=== PATIENT | female | born 1950 | race Caucasian/White ===

== ENCOUNTER 2024-08-27 23:35 | Emergency (ER) | payer MEDICARE, OTHER, SELFPAY ==
--- NOTE | ~2024-08-27 | CT_ITS ---
EXAMINATION: CT ABDOMEN AND PELVIS WITH CONTRAST CLINICAL INFORMATION: Right upper and right lower abdominal quadrant pain. COMPARISON: Chest radiograph 08/28/2024 TECHNIQUE: Multidetector volumetric images were obtained from the superior aspect of the liver through the pubic symphysis following administration 85 mL of Omnipaque 350 intravenous contrast. IV contrast extravasation within the right upper extremity during the examination per the technologist note. Sagittal and coronal reformatted images were obtained on the technologist's workstation. Oral contrast: No This CT examination was performed using dose optimization techniques as appropriate, variously including the following: *Automated exposure control *Adjustment of mA and/or kV according to patient size (this includes techniques or standardized protocols for targeted exams where dose is matched to indication/reason for exam; i.e. extremities or head) *Use of iterative reconstruction technique DLP: 610 mGy-cm As noted on the comparison chest radiograph, a large volume IV contrast extravasation occurred within the right upper extremity. These findings are minimally included within the imaged field of view on the current examination. No intravascular IV contrast is not identified on this examination. This examination is therefore effectively an unenhanced CT of the abdomen and pelvis FINDINGS: LUNG BASES: Minimal bibasilar posterior dependent atelectasis of the lungs. LIVER, GALLBLADDER, AND BILIARY TREE: The liver is normal in size and capsular contour. No focal parenchymal lesions of the liver or gross intrahepatic duct dilatation identified. Possible mild nonspecific periportal edema may be present. Physiologically distended. No radiodense cholelithiasis identified. No vague borderline findings suspicious for possible gallbladder wall thickening are noted with the gallbladder wall measuring 4 mm in width. No pericholecystic fluid collections. The common bile duct measures 10 mm diameter, above expected limits of normal size. No radiodense choledocholithiasis. PANCREAS: Unremarkable. SPLEEN: Punctate benign calcification which may represent a chronic granuloma. Normal splenic size. ADRENAL GLANDS: Unremarkable. KIDNEYS AND URETERS: The kidneys are normal in size, shape, and attenuation. No hydronephrosis, hydroureter, or calculi seen. No perinephric stranding. BLADDER: Distended GASTROINTESTINAL TRACT: Mild colonic diverticulosis. Normal appendix (series 4 image 463). ABDOMINAL WALL: No significant hernia is appreciated. LYMPH NODES: Normal. VASCULAR: Mild scattered calcific atherosclerosis PELVIC VISCERA: Uterus is not visualized. No adnexal lesions noted. OSSEOUS STRUCTURES: Unremarkable. CT/CT abdomen pelvis w IV con IMPRESSION: *IV contrast agent extravasated within the right upper extremity. No intravenous IV contrast agent identified. *Subtle, borderline mural thickening of the gallbladder. This is not a definitive finding. However, close scrutiny of the gallbladder suggests possible 4 mm wall thickness of the gallbladder which may be secondary to acute cholecystitis. Furthermore, the common bile duct measures 10 mm diameter, above normal limits of size. Dilatation of the common bile duct may reflect chronic dysfunction of the sphincter of Reynold. Nonvisualized choledocholithiasis could result in similar findings. No intrahepatic biliary duct dilatation. No additional possible acute abnormalities identified. *Normal appendix. No free intraperitoneal fluid or gas collections. *Distended urinary bladder. Electronically signed by: Timoteo Aguilera MD 08/28/2024 02:52 AM [facility]
--- NOTE | ~2024-08-27 | XR_ITS ---
EXAMINATION: XR CHEST CLINICAL INFORMATION: Pain. Contrast extravasation. COMPARISON: None available. TECHNIQUE: Frontal view of the chest was obtained. FINDINGS: Normal appearance of the cardiomediastinal structures. No effusions or pneumothoraces. Normal pattern of pulmonary vasculature. No focal pulmonary consolidation. Partial visualization is made of extensive subcutaneous hypodensity along the medial aspect of the humerus within the right upper extremity. No soft tissue emphysematous changes identified. XR/XR chest 1V IMPRESSION: Partial visualization of extensive subcutaneous extravasation of IV contrast agent within the right upper extremity. Electronically signed by: Timoteo Aguilera MD 08/28/2024 02:21 AM [facility]
--- NOTE | ~2024-08-27 | US_ITS ---
EXAMINATION: US ABDOMEN LIMITED CLINICAL INFORMATION: Abdominal pain.. COMPARISON: None available. TECHNIQUE: Real-time imaging of the right upper quadrant abdominal viscera. FINDINGS: Multiple echogenic dependently layering gallstones are present within the gallbladder lumen exhibiting posterior acoustic shadowing. No pericholecystic fluid collections identified. The common bile duct measures 9 mm in diameter. The gallbladder measures 3-4 mm in width. The generation engineering technologist note reports pain over entire abdomen reported by patient. No specific indication of assessment for sonographic Collazo sign noted in the technologist note. The liver is only partially visualized. The visualized liver is normal in appearance. No free intraperitoneal fluid collections noted. US/US abdomen limited IMPRESSION: *Cholelithiasis. Gallbladder wall measures 3-4 mm in width, at the upper limits of normal size. No pericholecystic fluid collections. Multiple mobile gallstones within the gallbladder lumen. *The visualized common bile duct measures 9 mm in diameter, above normal limits of size. No choledocholithiasis noted. The distal common bile duct is not visualized. Electronically signed by: Timoteo Aguilera MD 08/28/2024 04:11 AM [facility]
--- NOTE | 2024-08-27 23:42 | ECG_ITS ---
Test Reason : CP, ABDOMINAL PAIN Blood Pressure : / mmHG Vent. Rate : 058 BPM Atrial Rate : 058 BPM P-R Int : 158 ms QRS Dur : 100 ms QT Int : 444 ms P-R-T Axes : 054 -23 020 degrees QTc Int : 435 ms Sinus bradycardia Minimal voltage criteria for LVH, may be normal variant ( Russ product ) Nonspecific T wave abnormality Abnormal ECG No previous ECGs available Referred By: Generic ED Physician Electronically Signed By:JENIFER GREENE MD
[2024-08-27 23:43] VITALS: BP 196/70; PULSE 58; RESP 18; TEMP 36.6; O2SAT 98; BMI 24.0
[2024-08-28 00:22] LABS: MANUAL DIFF FLAG NO
[2024-08-28 00:23] LABS: Basophils Absolute Auto 0.1 X10*3/uL (0.0-0.2); Basophils Percent Auto 0.5 % (0-2); Eosinophils Absolute Auto 0.1 X10*3/uL (0.0-0.4); Eosinophils Percent Auto 0.6 % (0-4); Hematocrit 37.2 % (37.0-47.0); Hemoglobin 12.9 g/dl (12.0-16.0); Imm Gran Abs Auto 0.02 X10*3/uL (0.00-0.03); Imm Gran Pct Auto 0.2 % (0.0-0.4); Lymphocytes Absolute Auto 1.8 X10*3/uL (1.2-4.9); Lymphocytes Percent Auto 16.7 % (20-40); Mean Corpuscular HGB Conc 34.7 g/dl (31.0-35.0); Mean Corpuscular Hemoglobin 31.2 pg (27.0-33.0); Mean Corpuscular Volume 89.9 fL (80.0-98.0); Mean Platelet Volume 9.3 fL (9.4-12.3); Monocytes Absolute Auto 0.9 X10*3/uL (0.1-1.2); Monocytes Percent Auto 8.6 % (2-11); Neutrophils Absolute Auto 7.8 x10*3/uL (2.0-8.3); Neutrophils Percent Auto 73.4 % (45-73); Platelet Count 297 X10*3/uL (160-400); Red Blood Count 4.14 X10*6/uL (4.20-5.50); Red Cell Distribution Width 12.2 % (11.0-16.0); White Blood Count 10.6 X10*3/uL (4.8-10.8)
[2024-08-28 00:38] LABS: Alanine Aminotransferase 22 U/L (0-31); Albumin Level 3.8 g/dL (3.5-5.0); Alkaline Phosphatase 93 U/L (39-117); Anion Gap 14 (12-20); Aspartate Amino Transferase 94 U/L (5-31); Bilirubin Total 0.4 mg/dL (0.0-1.0); Blood Urea Nitrogen 13 mg/dL (9-16); Calcium 8.9 mg/dL (8.4-10.2); Carbon Dioxide 25 mmol/L (22-29); Chloride 103 mmol/L (96-108); Creatinine Clr Calc Pharmacy 57.7; Estimated Glomerular Filt Rate > 60; Glucose Random 127 mg/dL (60-115); Lipase 24 U/L (8-78); Magnesium 1.9 mg/dL (1.6-2.6); Potassium 3.7 mmol/L (3.3-5.1); Sodium 138 mmol/L (135-145)
[2024-08-28 00:45] LABS: Troponin-I High Sensitivity < 2.7 ng/L (<3.5-17.0)
[2024-08-28] MEDS: LORazepam 2 MG/ML VIAL 1 MG IVPUSH (00:48)
[2024-08-28] MEDS: HYDROmorphone HCl 1 MG/ML SYRINGE IVPUSH (00:48)
--- NOTE | 2024-08-28 00:48 | ED.ABDPAIN ---
HPI - Abdominal Pain General Chief Complaint: Abdominal Pain Stated Complaint: ABDOMINAL PAIN Time Seen by Provider: 08/28/24 00:01 Source: patient Limitations: no limitations History of Present Illness ED Provider: Jennifer Nascimento PA-C HPI narrative: 74-year-old female with a self report of history of anxiety, epilepsy, breast cancer status post double mastectomy with lumpectomy on chronic opiate and benzodiazepine therapy, presents with abdominal pain. History limited as the patient continues to complain and perseverate over her pain. From what I can discern, she is having diffuse pain, most prominent over epigastric/substernal region, she states ?I feel like there is a ton of pressure and my duodenum is sticking out?. Associated constipation, abdominal distention and nausea. Unclear duration of symptoms. Related Data Allergies Allergy/AdvReac Type Severity Reaction Status Date / Time nitrofurantoin Allergy Unknown Verified 08/27/24 23:55 [From Macrodantin] prednisone Allergy Unknown Verified 08/27/24 23:55 zolpidem Allergy Nausea and Verified 08/27/24 23:55 Vomiting haloperidol [From Haldol] AdvReac Hallucinati Verified 08/28/24 01:07 ons levetiracetam [From Keppra] AdvReac Hallucinati Verified 08/28/24 01:07 ons Review of Systems Review of Systems Yes all other systems are reviewed and are negative Constitutional: Denies fatigue and Denies fever(s) Cardiovascular: Denies dyspnea Respiratory: Denies cough and Denies dyspnea Gastrointestinal: Reports bloating, Reports constipation, Reports nausea and Denies vomiting Endocrine: Denies fatigue PMFSH Past Medical History Attestation statement: The following information was validated with the patient. Medical History (Updated 08/28/24 @ 05:30 by Juana Florian MD) Breast cancer Surgical History (Updated 08/28/24 @ 03:50 by Crissy Short) H/O mastectomy Social History Social History Advance Directives: No Advance Directives Information Provided: Yes Do you have a plan to hurt others: No Plan Physical Exam ED Vital Signs: Vital Signs - 24 hr 08/27/24 23:43 08/28/24 02:28 08/28/24 05:05 Temperature 97.9 F 98.9 F 97.8 F Pulse Rate 58 62 52 Respiratory Rate 18 16 18 Blood Pressure 196/70 H 147/80 H 148/46 H Pulse Oximetry 98 97 97 Oxygen Delivery Method Room Air Room Air Room Air 08/28/24 06:10 Temperature 97.8 F Pulse Rate 52 Respiratory Rate 18 Blood Pressure 148/46 H Pulse Oximetry 99 Oxygen Delivery Method Room Air BMI result Body Mass Index 24.0 Const Other: Awake, cachectic Orientation/consciousness: patient oriented x3 Resp Other: Nonlabored respirations Cardio Other: Normal peripheral perfusion GI Other: Palpable pain over entire abdomen, it is soft not objectively distended, no objective guarding Skin Other: Warm dry no rash Neuro General: patient oriented x3, no focal motor deficits and CN's II-XI intact bilaterally Psych Other: Anxious, demanding, complaining over every intervention we are trying to implement, tearful at times, difficult to please Course Course Course Narrative: Signed out to night team pending imaging and final disposition. Medical Decision Making Medical Decision Making [facility] Narrative: 74-year-old female with a self report of history of anxiety, epilepsy, breast cancer status post double mastectomy with lumpectomy on chronic opiate and benzodiazepine therapy, presents with abdominal pain. History limited as the patient continues to complain and perseverate over her pain. From what I can discern, she is having diffuse pain, most prominent over epigastric/substernal region, she states ?I feel like there is a ton of pressure and my duodenum is sticking out?. Associated constipation, abdominal distention and nausea. Unclear duration of symptoms. Problem: Cancer, epilepsy, anxiety, chronic pain History: Per patient I have considered the following differential diagnoses: Metastatic disease, bowel obstruction, constipation, renal colic, medication seeking behavior, opiate withdrawal, ACS Plan: Patient is stating that she is constipated nauseous with the abdominal distention, I am considering bowel obstruction, perhaps she has metastatic disease. We will be obtaining a CT scan. Screening broad labs. We will be giving Dilaudid and Ativan. Patient states her pain radiates to the flank at times, perhaps she is passing a kidney stone. We will collect a urine sample. She could simply be constipated, she is on high-dose chronic opiate therapy. The patient is exhibiting medication seeking behaviors. Despite her self report of her pain medication regimen, she also received an additional 4 mg IV dose of morphine via EMS. Patient was also noted to be hypertensive, could be pain driven. Perhaps she ran out of her medications at home if she is taking too frequently than is prescribed, and now she is exhibiting withdrawal symptoms. Part of the patient's pain distribution is epigastric and subxiphoid region, perhaps this is an atypical presentation for ACS, EKG, chest x-ray and troponin we will be obtained. I have independently reviewed the following tests: Labs: No leukocytosis, not anemic, no electrolyte abnormality, troponin negative at less than 2.7 EKG: Sinus bradycardia, rate of 58, T-wave inversions noted V1 through V4, we have no priors, QT see 435, no ectopy Chest x-ray: CT abdomen and pelvis: - I received sign-out from my colleague GHADA Nascimento - CT scan of the abdomen show possible acute cholecystitis due to a wall thickness of 4 mm. However, patient does not have any significant epigastric pain at this time, no rebound or guarding, negative Collazo's sign. - Ultrasound shows cholelithiasis, gallbladder wall measuring 3-4 mm, no pericholecystic fluid collection, multiple mobile gallstones. Common bile duct is 9 mm in diameter. - At this time, patient is feeling better, patient feels comfortable going home. - Discussed with the patient that she will need a follow-up with Gastroenterology and surgery. Patient agrees with plan. before discharge, patient was concerned that when she gets home, she will need help getting up the stairs. I discussed with the patient that if she has trouble with her daily activities, we can have PT and case management evaluate her and get her extra help if needed at home. Patient declined, patient requested to be discharged Lab Data 08/28/24 00:16 08/28/24 00:16 Labs: Lab Results 08/28/24 08/28/24 Range/Units 00:16 00:17 WBC 10.6 (4.8-10.8) X10*3/uL RBC 4.14 L (4.20-5.50) X10*6/uL Hgb 12.9 (12.0-16.0) g/dl Hct 37.2 (37.0-47.0) % MCV 89.9 (80.0-98.0) fL MCH 31.2 (27.0-33.0) pg MCHC 34.7 (31.0-35.0) g/dl RDW 12.2 (11.0-16.0) % Plt Count 297 (160-400) X10*3/uL MPV 9.3 L (9.4-12.3) fL Immature Gran % (Auto) 0.2 (0.0-0.4) % Neut % (Auto) 73.4 H (45-73) % Lymph % (Auto) 16.7 L (20-40) % Cooke % (Auto) 8.6 (2-11) % Eos % (Auto) 0.6 (0-4) % Baso % (Auto) 0.5 (0-2) % Lymph # (Auto) 1.8 (1.2-4.9) X10*3/uL Cooke # (Auto) 0.9 (0.1-1.2) X10*3/uL Eos # (Auto) 0.1 (0.0-0.4) X10*3/uL Baso # (Auto) 0.1 (0.0-0.2) X10*3/uL Abs Immat Gran (auto) 0.02 (0.00-0.03) X10*3/uL Absolute Neuts (auto) 7.8 (2.0-8.3) x10*3/uL Absolute Nucleated RBC 0.000 (0.0-0.012) X10*3/uL Nucleated RBC % (auto) 0.0 (0.0-0.2) /100WBC Sodium 138 (135-145) mmol/L Potassium 3.7 (3.3-5.1) mmol/L Chloride 103 (96-108) mmol/L Carbon Dioxide 25 (22-29) mmol/L Anion Gap 14 (12-20) BUN 13 (9-16) mg/dL Creatinine 0.76 (0.5-1.4) mg/dL Estim Creat Clear Calc 57.7 Estimated GFR > 60 Random Glucose 127 H (60-115) mg/dL Calcium 8.9 (8.4-10.2) mg/dL Magnesium 1.9 Cancelled (1.6-2.6) mg/dL Total Bilirubin 0.4 (0.0-1.0) mg/dL AST 94 H (5-31) U/L ALT 22 (0-31) U/L Alkaline Phosphatase 93 (39-117) U/L Troponin I High Sens < 2.7 (<3.5-17.0) ng/L Total Protein 7.0 (6.5-8.0) g/dL Albumin 3.8 (3.5-5.0) g/dL Lipase 24 (8-78) U/L Medications Administered Discontinued Medications Generic Name Dose Route Start Last Admin Trade Name Christianq PRN Reason Stop Dose Admin Hydromorphone HCl 1 mg 08/28/24 00:02 08/28/24 00:48 Hydromorphone Hcl 1 Mg/Ml Syringe IVPUSH 08/28/24 00:03 1 mg ONCE ONE Administration Protocol Sodium Chloride 1,000 mls @ 999 mls/hr 08/28/24 00:15 08/28/24 01:20 Ns IV 08/28/24 01:15 Not Given .Q1H1M JULIO Iohexol 85 ml 08/28/24 01:15 08/28/24 01:16 Iohexol 350 Mg/Ml 100 Ml Infus..Btl IV 08/28/24 01:16 85 ml ONCE ONE Administration Lorazepam 1 mg 08/28/24 00:02 08/28/24 00:48 Lorazepam 2 Mg/Ml Vial IVPUSH 08/28/24 00:03 1 mg ONCE ONE Administration Morphine Sulfate 4 mg 08/28/24 04:43 08/28/24 04:55 Morphine Sulfate 4 Mg/Ml Cartridge IM 08/28/24 04:44 4 mg ONCE ONE Administration Protocol Discharge Plan Discharge Clinical Impression: Abdominal pain, Cholelithiasis Patient Disposition: Home, Self-Care Instructions: Gallstones (ED), Abdominal Pain (ED) Additional Instructions: Please follow-up with your primary care physician tomorrow. If you have any worsening or new symptoms, please return to the emergency room or call 911 Referrals: Talisha Vilchis MD [Physician] - 08/28/24 Nabil Hatfield MD [Physician] - 1 day Interventions: ED Discharge Assessment Last Done: 08/28/24 06:10 Print Language: Moldovan
--- NOTE | 2024-08-28 00:51 | PC.NURSE ---
Ultrasound guided iv placed by Celena URRUTIA in R arm. + blood return, flushed with no issues. PT medicated as per DEC.
[2024-08-28] MEDS: iohexoL 350 MG/ML 100 ML INFUS..BTL 85 ML IV (01:16)
--- NOTE | 2024-08-28 01:20 | PC.NURSE ---
GHADA Dallas held N order due to pt condition- HTN
--- NOTE | 2024-08-28 01:45 | PC.NURSE ---
Radiology reports IV infiltrated.
--- NOTE | 2024-08-28 02:15 | PC.NURSE ---
XRAY shows contrastin right arms. PT provided hot packs for infiltration. Plan for abd US. PT resting comfortable, in no acute distress. VSS
[2024-08-28 02:28] VITALS: BP 147/80; PULSE 62; RESP 16; TEMP 37.2; O2SAT 97
[2024-08-28] MEDS: Morphine Sulfate 4 MG/ML CARTRIDGE IM (04:55)
[2024-08-28 05:05] VITALS: BP 148/46; PULSE 52; RESP 18; TEMP 36.6; O2SAT 97
--- NOTE | 2024-08-28 05:50 | PC.NURSE ---
Prior to discharging pt t/w inquired with pt how pt would be getting home. pt reportd that she needs EMS transport home because she is not able to get upstairs to her apartment by herself. PT reports she has sciatica, but no other medical conditions warranting EMS transport home. PT encouraged to call her [employer], she refused and reports she has no family in the area. PT expressed frustration stating that [facility] promised her we would get EMS for her return home. T/w noted to pt that if she has difficulty getting into her apartment that we would recommend PT/CM for an evaluation. PT refused and immediately ordered her elf a lyft states that she needs to get home right now. T/W reiterated the safety concerns pt states she is aware of the risk especially being that there is no guarantee that the team cdl driver will assist her into her apartment. Discharge summary and instructions given pt encouraged to call 911 or return to ED for any new or worsening symptoms. Charge and Dr. Florian aware. PT discharged and wheeled to team cdl driver outside of ed
[2024-08-28 06:10] VITALS: BP 148/46; PULSE 52; RESP 18; TEMP 36.6; O2SAT 99
== END 2024-08-28 06:10 | disposition home or self-care (01) ==
PROVIDERS: Emergency Provider Emergency Medicine
DX: K80.20 Calculus of gallbladder without cholecystitis without obstruction (principal); R10.9 Unspecified abdominal pain; R00.1 Bradycardia, unspecified; G89.4 Chronic pain syndrome; Z85.3 Personal history of malignant neoplasm of breast; Z79.891 Long term (current) use of opiate analgesic
CPT/HCPCS: 36415; 71045; 74177; 76705; 80053; 83690; 83735; 84484; 85025; 93005; 96372; 96374; 96375; 99284; J1171; J2060; J2270; Q9967

== ENCOUNTER → 2024-08-27 23:42 | Outpatient (BNV) | payer MEDICARE, OTHER, SELFPAY | PROVIDERS: Emergency Provider Emergency Medicine; Visit Provider Internal Medicine Cardiovascular Disease | DX: R94.31 Abnormal electrocardiogram [ECG] [EKG] (principal) | CPT/HCPCS: 93010 ==

== ENCOUNTER 2025-07-13 22:56 | Inpatient (IN) | payer MEDICARE, OTHER, SELFPAY ==
--- OUTSIDE RECORDS SUMMARY | 2016-03-23 11:03 | XMS_ITS | Encounter Summary ---
Author Organization [facility] Address [address] [facility] [address] [place] [phone] Phone Care Team Providers Care Roll Tester Name Role Phone Andrew Kebede MD Primary Care Provider [phone] Encounter Details Date Type Department Care Team (Late st Contact Info) Description 03/23/2016 11:03 AM EDT Hospital Encounter [facility] [address] [place] [address] Social History Tobacco Use Types Packs/Day Years Used Date Smoking Tobacco: Former Cigarettes 0.3 20 Smokeless Tobacco: Never Alcohol Use Standard Drinks/Week Comments No 0 (1 standard drink = 0.6 oz pur e alcohol) Education Answer Date Recorded Are you interested in more education? Not on gaudencio e 02/04/2023 Are you concerned about learning? Not on file 02/04/2023 No 02/04/2023 No 02/04/2023 Digital Access Answer Date Recorded No 03/08/2023 No 03/08/2023 Reliable internet access at home? Not on file 03/08/2023 Device with a working camera? Not on file Intimate Partner Violence Answer Date R ecorded Are you denied basic needs s uch as food, clothing, or medical care? No 01/13/2024 In the past 12 months have y ou been in a relationship with a person who hurts, threatens, or tries to control you? No 01/13/2024 Are you denied basic needs s uch as food, clothing, or medical care? No 01/13/2024 In the past 12 months have y ou been in a relationship with a person who hurts, threatens, or tries to control you? No 01/13/2024 Comments No Sex and Gender Information Value Date Recorded Sex Assigned at Not on file Legal Sex Female 7:28 PM EST Gender Identity Not on file Sexual Orientation Not on file documented as of this encounter Functional Status * Calculated C-SSRS Risk Score (Lifetime/Recent) Answer Date of Assessment Author No Risk Indicated 05/25/2025 1:45 PM EDT Jeny Cohen RN * [place] Suicide Severity Rating Scale (Screener/Recent Self-Report) Question Answer Date of Assessment Author 1. Wish to be (Past 1 Month) No 025 1:45 PM EDT Justus Cohen RN 2. Non-Specific Active Suici abraham Thoughts (Past 1 Month) No 05/25/2025 1:45 PM EDT Justus Cohen RN 6. Suicidal Behavior (Lifetime) No 1:45 PM EDT Justus Cohen RN documented as of this encounter Plan of Treatment Not on file documented as of this encounter Procedures Procedure Name Priority Date/Time Associated Diagnosis Comments ECG 12-LEAD Routine 03/23/2016 11:15 AM EDT Preoperative examination, unspecified documented in this encounter Results * ECG 12 lead (03/23/2016 11:15 AM EDT) Systolic Blood Pressure [facility] Diastolic Blood Pressure [facility] Ventricular Rate EKG/MIN 59 BPM [facility] Atrial Rate 59 BPM [facility] SC Interval 136 ms [facility] QRS Duration 80 ms [facility] QT Interval 430 ms [facility] QTC Interval 425 ms [facility] P [place] 61 degrees [facility] R Wave [place] 4 degrees [facility] T Wave [place] 4 degrees [facility] 03/23/2016 11:1 5 AM EDT 03/24/2016 7:32 AM EDT Narrative [facility] - 03/24/2016 7:32 AM EDT SINUS BRADYCARDIA NONSPECIFIC T WAVE ABNORMALITIES ABNORMAL ECG Electronically Signed in [facility] system. Confirmed by Stephanie Castaneda, Irma ([id number]), associate entertainment editor DEIDRA SEVILLA ([id number]) on 03/24/2016 7:32:25 AM us Apolonia Miller MD ECG ORDERABLES Final Re sult [facility] documented in this encounter Visit Diagnoses Not on filedocumented in this encounter Additional Health Concerns Infection Onset Date Last Indicated Resolved Time CoV-Risk 11/22/2023 11/22/2023 11/22/2023 2:27 PM EST COVID-19 11/22/2023 11/28/2023 12/19/2023 1:21 AM EST documented as of this encounter Care Teams Roll Tester Relationship Specialty Start Date End Date Andrew Kebede MD [address] [place] [address] [place] [address] [email or web address] PCP - General Internal Medicine 12/12/15 documented as of this encounter Additional Source Comments The information contained in this document represents components of the legal health record. It is not the complete legal health record.[facility]
--- OUTSIDE RECORDS SUMMARY | 2025-07-13 15:36 | XMS_ITS | Encounter Summary ---
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 morphine (MSIR) tablet 15 mg 15 mg, oral, Every 4 hours PRN, severe pain, Starting on Wed07/13/25 at 1928 Given 07/13/2025 7:43 PM EDT 15 mg rosuvastatin (CRESTOR) tablet 20 mg 20 mg, oral, Nightly, First dose on Wed07/13/25 at 2100, Was patient receiving rosuvastatin prior to admission? (See order restrictions above): Yes Given 07/13/2025 8:15 PM EDT 20 mg Inactive Administered Medications - up to 3 most recent administrations Medication Order MAR Action Action Date Dose Rate Site potassium chloride (KLOR-CON M20) CR tablet 40 mEq 40 mEq, oral, Once, On Wed07/13/25 at 2122, For 1 dose, Tablet may be swallowed whole (do not crush/chew/suck on) OR broken in half and each half swallowed separately OR dissolved (whole tablet) in ~4 ounces of water (allow ~2 minutes to dissolve, stir well and administer immediately). Given 07/13/2025 9:25 PM EDT 40 mEq documented in this encounter Discontinued Medications Medication Sig Discontinue Reason Start Date End Da te morphine (MSIR) 15 mg tablet Take 2 tablets (30 mg total) by mouth every 8 hours as needed. Formulary change 06/08/2025 07/13/2025 estrogens, conjugated, (PREMARIN) 0.625 mg tablet Take 1 tablet (0.625 mg total) by mouth daily. Discontinued by another clinician 11/02/2020 07/13/2025 aspirin 81 mg chewable tablet Chew 1 tablet (81 mg total) daily. Discontinued by another clinician 06/12/2025 07/13/2025 oxyCODONE (ROXICODONE) 10 mg immediate release tablet Take 0.5 tablets (5 mg total) by mouth every 6 hours as needed. Discontinued by another clinician 12/31/2023 07/13/2025 phenazopyridine (PYRIDIUM) 200 mg tablet Take 1 tablet (200 mg total) by mouth 3 times daily as needed. Discontinued by another clinician 09/27/2024 07/13/2025 documented as of this encounter Historical Medications * This list may reflect changes made after this encounter. furosemide (LASIX) 20 mg tablet Take 1 tablet (20 mg total) by mouth 1 (one) time each day. Take one table alternating with two tables once a day 07/09/2025 rosuvastatin (CRESTOR) 20 mg tablet Take 1 tablet (20 mg total) by mouth daily. 01/08/2025 polyethylene glycol (PEG) 17 gram/dose oral powder Take 17 g by mouth 1 (one) time if needed for constipation. 05/29/2022 ondansetron (ZOFRAN) 4 mg tablet Take 1 tablet (4 mg total) by mouth every 8 hours as needed. morphine (MSIR) 15 mg tablet Take 1 tablet (15 mg total) by mouth Every 4 hours as needed. 12/21/2024 lactulose (CHRONULAC) solution Take 30 mL (20 g total) by mouth once daily as needed. diclofenac (VOLTAREN) 1 % topical gel Apply 2 g topically 2 times daily as needed. 05/01/2024 cycloSPORINE (RESTASIS) 0.05 % ophthalmic emulsion Administer 1 drop into both eyes 2 times daily. 01/02/2022 clopidogreL (PLAVIX) 75 mg tablet Take 1 tablet (75 mg total) by mouth daily. 04/23/2025 ALPRAZolam (XANAX) 0.5 mg tablet Take 1 tablet (0.5 mg total) by mouth 4 (four) times a day if needed for anxiety. phenazopyridine (PYRIDIUM) 200 mg tablet Take 1 tablet (200 mg total) by mouth 3 times daily as needed. 09/27/2024 oxyCODONE (ROXICODONE) 10 mg immediate release tablet Take 0.5 tablets (5 mg total) by mouth every 6 hours as needed. 12/31/2023 morphine (MSIR) 15 mg tablet Take 2 tablets (30 mg total) by mouth every 8 hours as needed. 06/08/2025 estrogens, conjugated, (PREMARIN) 0.625 mg tablet Take 1 tablet (0.625 mg total) by mouth daily. 11/02/2020 5 aspirin 81 mg chewable tablet Chew 1 tablet (81 mg total) daily. 06/12/2025 5 added in this encounter Active and Recently Administered Medications Times are shown in EDT. Scheduled Medication Order 07/11/2025 07/12/2025 07/13/2025 clopidogreL (PLAVIX) tablet 75 mg 75 mg, oral, Daily, First dose on Wed07/13/25 at 1929 1942 (Not Given - Pr ovider: Yon Sweeney RN - Reason: Other - Comment: Patient takes medication in AM- pt reports taking this morning) furosemide (LASIX) tablet 20 mg 20 mg, oral, Daily, First dose on Wed07/13/25 at 1930 1937 (Not Given - Pr ovider: Yon Sweeney RN - Reason: Other - Comment: Patient takes dose in the morning - ordered for 0900 every day starting tomorrow) potassium chloride (KLOR-CON M20) CR tablet 40 mEq (COMPLETED) 40 mEq, oral, Once, On Wed07/13/25 at 212, For 1 dose, Tablet may be swallowed whole (do not crush/chew/suck on) OR broken in half and each half swallowed separately OR dissolved (whole tablet) in ~4 ounces of water (allow ~2 minutes to dissolve, stir well and administer immediately). 2124 (Given - Provid er: Yon Sweeney RN) rosuvastatin (CRESTOR) tablet 20 mg 20 mg, oral, Nightly, First dose on Wed07/13/25 at 2100, Was patient receiving rosuvastatin prior to admission? (See order restrictions above): Yes 2014 (Given - Provid er: Yon Sweeney RN) PRN Medication Order 07/11/2025 07/12/2025 07/13/2025 ALPRAZolam (XANAX) tablet 0.5 mg 0.5 mg, oral, 2 times daily PRN, anxiety, Starting on Wed07/13/25 at 1929 1942 (Given - Provid er: Yon Sweeney RN) morphine (MSIR) tablet 15 mg 15 mg, oral, Every 4 hours PRN, severe pain, Starting on Wed07/13/25 at 1921942 (Given - Provid er: Yon Sweeney RN) documented in this encounter Orders Medications Ordered That Luke ht Not Have Been Administered Count Last Ordered Date First Ordered Date clopidogreL (PLAVIX) tablet 75 mg 1 025 furosemide (LASIX) tablet 20 mg 1 Diet Count Last Ordered Date First Orde red Date ADULT DIET 1 07/13/2025 Nursing Count Last Ordered Date First Orde red Date VITAL SIGNS 1 07/13/2025 Consult Count Last Ordered Date First Orde red Date IP CONSULT TO AUTOCUTTER 1 07/13/2025 IP CONSULT TO SOCIAL WORK 1 07/13/2025 Precaution Count Last Ordered Date First Orde red Date SUICIDE PRECAUTIONS 1 07/13/2025 Privilege Level Count Last Ordered Date First O rdered Date PATIENT BAKERY ASSOCIATE 1 07/13/2025 documented in this encounter Care Teams Digital Marketing Apprentice Relationship Specialty Start Date End Date Andrew Kebede DO [address] [facility] [place] [id number] PCP - General Internal Medicine 02/01/25 documented as of this encounter
--- OUTSIDE RECORDS SUMMARY | 2025-07-13 23:02 | XMS_ITS | Encounter Summary ---
Author Organization [facility] Address [address] [place] [address] Care Team Providers Care Corporate Sales Representative Name Role Phone Andrew Kebede MD Primary Care Provider [phone] Andrew Kebede MD Unavailable PortiaCarina Colunga RN Unavailable Unavailable Reason for Visit * Reason Onset Date Comments Med Refill 04/03/2025 Encounter Details Date Type Department Care Team (Late st Contact Info) Description 04/03/2025 Refill [facility] [address] [facility] [address] [place] [address] Andrew Kebede MD [address] [place] [address] Nausea; Post herpetic neuralgia Social History Tobacco Use Types Packs/Day Years Used Date Smoking Tobacco: Former Cigarettes 1991 Smokeless Tobacco: Never Alcohol Use Standard Drinks/Week Comments Never 0 (1 standard drink = 0.6 oz pur e alcohol) Utilities Answer Date Recorded In the past 12 months has peerTransfer, gas, oil, or water [employer] threatened to shut off services in your home? No 03/01/2025 AUDIT-C Answer Date Recorded Q1: How often do you have a drink containing alcohol? Never 01/14/2025 Q2: How many drinks containi ng alcohol do you have on a typical day when you are drinking? Patient does not drink Q3: How often do you have si x or more drinks on one occasion? Never 01/14/2025 Overall Financial Resource Strain (CARDIA) Answe r Date Recorded How hard is it for you to pa y for the very basics like food, housing, medical care, and heating? Not hard at all 03/01/2025 Hunger Vital Sign Answer Date Recorded Within the past 12 months, y ou worried that your food would run out before you got the money to buy more. Never true 03/01/20 25 Ran Out of Food in the Last Year Not on file 03/01/2025 PRAPARE - Transportation Answer Date Re corded In the past 12 months, has l ack of transportation kept you from medical appointments or from getting medications? No 02/09 In the past 12 months, has l ack of transportation kept you from meetings, work, or from getting things needed for daily living? No 03/01/2025 Housing Stability Vital Sign Answer Ethan e Recorded Unable to Pay for Housing in the Last Year Not o n file 12/24/2023 Number of Places Lived in the Last Year Not on f ile 12/24/2023 In the last 12 months, was t here a time when you did not have a steady place to sleep or slept in a [facility] (including now)? No 12/24/2023 Housing Stability Vital Sign Answer Ethan e Recorded Unable to Pay for Housing in the Last Year Not o n file 03/01/2025 Number of Times Moved in the Last Year Not on fi le 03/01/2025 At any time in the past [address] [facility], were you homeless or living in a [facility] (including now)? No 03/01/2025 Comments No Sex and Gender Information Value Date Recorded Sex Assigned at Female 12/24/2023 4:34 PM EDT Legal Sex Female 12:46 AM EST Gender Identity Female 12/24/2023 4:34 PM EDT Sexual Orientation Straight 12/24/2023 4: 34 PM EDT documented as of this encounter Functional Status * Are you deaf or do you have serious difficulty hearing? Answer Date of Assessment Author No 01/15/2025 1:00 AM EDT Bronson Wilkins, BERT * Are you blind or do you have serious difficulty seeing, even when wearing glasses? Answer Date of Assessment Author No 01/15/2025 1:00 AM EDT Bronson Wilkins RN * Do you have serious difficulty walking or climbing stairs? Answer Date of Assessment Author No 01/15/2025 1:00 AM EDT Bronson Wilkins RN * Do you have serious difficulty dressing or bathing? Answer Date of Assessment Author No 01/15/2025 1:00 AM EDT Bronson Wilkins RN * Because of a physical, mental, or emotional condition, do you have difficulty doing errands such asvisiting the doctor's office or shopping? Answer Date of Assessment Author No 01/15/2025 1:00 AM EDT Bronson Wilkins RN documented as of this encounter Mental Status * Because of a physical, mental, or emotional condition, do you have serious difficulty concentrating, remembering, or making decisions? Answer Entry Date Author No 01/15/2025 1:00 AM EDT Bronson Wilkins RN documented in this encounter Miscellaneous Notes * Telephone Encounter - Andrew Kebede MD - 04/03/2025 5:56 PM EDT Jesusita had emailed me about ?infected tooth. I called left message I would call later documented in this encounter Plan of Treatment Upcoming Encounters Date Type Department Care Team (Late st Contact Info) Description 07/10/2025 11:59 PM EDT Anesthesia Event [facility] [address] [place] [address] Claudia Bell MD [address] [place] [address], [address] [place] [address] 07/19/2025 1:30 PM EDT Lab [facility] Hematology[facility]Oncology Clinic [address] [place] [address] 07/19/2025 2:00 PM EDT Office Visit [facility] [address] [place] [phone] Kartik Fields MD [address] [place] [address] 07/19/2025 2:00 PM EDT Office Visit [facility] Division of Palliative Care [address] [facility] [address] [place] [address] Sigrid Gaston MD [address] [facility] [address] [place] [address] 07/19/2025 3:00 PM EDT Office Visit [facility] [address] [facility] [address] [place] [address] Andrew Kebede MD [address] [place] [address] 07/25/2025 11:00 AM EDT Appointment [facility] [address] [place] [address] 08/13/2025 3:15 PM EST Appointment [facility] Radiation Oncology [address] [facility] [place] [address] Luis Angel Redi MD [address] [facility]. [address] [place] [address] documented as of this encounter Visit Diagnoses Diagnosis Nausea Nausea alone Post herpetic neuralgia Herpes zoster with other nervous system complications documented in this encounter Care Teams Corporate Sales Representative Relationship Specialty Start Date End Date Andrew Kebede MD [address] [place] [address] PCP - General 11/14/21 Andrew Kebede MD [address] [place] [address] 11/14/21 Carina Pearce, tobacco wetterStock Worker And Deliverer 03/19/25 04/25/25 documented as of this encounter
--- OUTSIDE RECORDS SUMMARY | 2025-07-13 23:02 | XMS_ITS | Clinical Summary ---
Author Organization [facility] Address [address] [place] [address] Care Team Providers Care Clinical Education Assistant Name Role Phone Andrew Kebede Primary Care Provider [phone] Social History Tobacco Use Types Packs/Day Years Used Date Smoking Tobacco: Never Assessed Comments Unknown Sex and Gender Information Value Date Recorded Sex Assigned at Not on file Legal Sex Female 1:41 PM EDT Gender Identity Not on file Sexual Orientation Not on file Plan of Treatment Health Maintenance Due Date Last Done Comments Hepatitis C Screening 1950 DTaP/Tdap/Td (1 - Tdap) 1970 Pneumococcal 50+ years (1 of 1 - PCV) 2002 Zoster (Shingrix) (1 of 2) 2002 Mammogram/Breast Imaging 03/30/2015 03/30/2014 Bone Density 2017 COVID-19 Vaccine ( - 2023-2 5 season) 2025 Influenza (#1) 2025 RSV (1 - 1-dose 75+ series) 2027 HPV Vaccine (No Doses Required) Completed Hep A Aged Out No longer eligi ble based on patient's age to complete this topic Hep B Aged Out No longer eligi ble based on patient's age to complete this topic Hib Aged Out No longer eligi ble based on patient's age to complete this topic Meningococcal ACWY Aged Out No longer eligible based on patient's age to complete this topic Pap Smear Discontinued Zoster (Zostavax) Discontinued Procedures * Due to [place] law, this organization might not be sharing negative HIV tests. Procedure Name Priority Date/Time Associated Diagnosis Comments MAMMOGRAPHY-BILATERAL 03/30/2014 from Last 3 Months or Most Recently Relevant to Health Maintenance Results * Due to [place] law, this organization might not be sharing negative HIV tests. * MAMMOGRAPHY-BILATERAL (03/30/2014) 03/30/2014 Narrative Transcriptions Andrew Kebede - 04/23/2016 12:00 AM EDT Andrew Kebede GENERAL IMAGING- OTHER Final Res ult from Last 3 Months or Most Recently Relevant to Health Maintenance Insurance FFS MEDICARE-SUPPLEMENTAL MEDICARE PART B Care Teams Clinical Education Assistant Relationship Specialty Start Date End Date Andrew Kebede [facility] [address] [place] [address] PCP - General Internal Medicine 02/13/16
--- OUTSIDE RECORDS SUMMARY | 2025-07-13 23:02 | XMS_ITS | Encounter Summary ---
Author Organization [facility] Address [address] [place] [address] Care Team Providers Care Public Information Director Name Role Phone Andrew Kebede MD Primary Care Provider [phone] Andrew Kebede MD Unavailable PortiaCarina Colunga RN Unavailable Unavailable Reason for Visit * Reason Onset Date Comments Med Refill 08/17/2023 Encounter Details Date Type Department Care Team (Late st Contact Info) Description 08/17/2023 Refill [facility] [address] [facility] [address] [place] [address] Andrew Kebede MD [address] [place] [address] H/O breast surgery Social History Tobacco Use Types Packs/Day Years Used Date Smoking Tobacco: Never Assessed Comments Unknown Sex and Gender Information Value Date Recorded Sex Assigned at Female 12/24/2023 4:34 PM EDT Legal Sex Female 12:46 AM EST Gender Identity Female 12/24/2023 4:34 PM EDT Sexual Orientation Straight 12/24/2023 4: 34 PM EDT documented as of this encounter Plan of Treatment Upcoming Encounters Date Type Department Care Team (Late Contact Info) Description 07/10/2025 11:59 PM EDT Anesthesia Event [facility] [address] [place] [address] Claudia Bell MD [address] [facility], [address] [place] [address] 07/19/2025 1:30 PM EDT Lab [facility] Hematology/Oncology Clinic [address] [place] [address] 07/19/2025 2:00 PM EDT Office Visit [facility] [address] [place] [address] Kartik Fields MD [address] [place] [address] 07/19/2025 2:00 PM EDT Office Visit [facility] Division of Palliative Care [address] [facility] [address] [place] [address] Sigrid Gaston MD [address] [facility] [address] [place] [address] 07/19/2025 3:00 PM EDT Office Visit [facility] [address] [facility] [address] [place] [phone] Andrew Kebede MD [address] [place] [address] 07/25/2025 11:00 AM EDT Appointment [facility] Imaging [address] [place] [address] 08/13/2025 3:15 PM EST Appointment [facility] Radiation Oncology [address] [facility] [place] [address] Luis Angel Reid MD [address] [facility] [address] [place] [address] documented as of this encounter Visit Diagnoses Diagnosis H/O breast surgery documented in this encounter Additional Health Concerns Infection Onset Date Last Indicated Resolved Time COVID-19 Rule-Out 01/14/2025 01/14/2025 01/14/2025 10:10 PM EDT documented as of this encounter Care Teams Public Information Director Relationship Specialty Start Date End Date Andrew Kebede MD [address] [place] [address] PCP - General 11/14/21 Andrew Kebede MD [address] [place] [address] 11/14/21 PortiaCarina Colunga, customer training specialistUnderwriting Assistant 03/19/25 04/25/25 documented as of this encounter
--- OUTSIDE RECORDS SUMMARY | 2025-07-13 23:02 | XMS_ITS | Encounter Summary ---
Author Organization [facility] Address [address] [facility] [address] [place] [address] Phone Care Team Providers Care Crane Rigger Name Role Phone Andrew Kebede MD Primary Care Provider [phone] Shaq Wolff MD Unavailable [phone] Mariel Pollard Unavailable [phone] Encounter Details Date Type Department Care Team (Late st Contact Info) Description 10/25/2024 Transcribe Orders Virtual Department [address] [place] [address] Andrew Kebede MD [address] [place] [address] [place] [address] [email or web address] Osteopenia, unspecified location (Primary Dx) Social History Tobacco Use Types [...] with a working camera? Not on file 05 / Intimate Partner Violence Answer Date R ecorded [...] on file documented as of this encounter Plan of Treatment Not on file documented as of this encounter Results * XR LUMBOSACRAL SPINE 2-3 VIEWS (11/06/2024 2:30 PM EST) Anatomical Region Laterality Modality L-spine Computed Radiogr aphy 11/07/2024 8:49 AM EST Impressions 11/07/2024 8:51 AM EST Spondylitic changes described above. If there is a clinical concern for disc herniation or spinal canal stenosis MRI can be considered Narrative 11/07/2024 8:51 AM EST XR LUMBOSACRAL SPINE 2-3 VIEWS Referring clinician's provided indication for this examination in [facility]: Outside Radiology Order; Osteopenia; Pain; LOW BACK PAIN COMPARISON: Selected images from CT abdomen pelvis dated 10/31/2023. FINDINGS: There are some trace anterolisthesis of L4 on L5. Alignment otherwise preserved. Vertebral body heights are maintained. Mild endplate osteophytes seen throughout the lumbar spine. There is mild diffuse disc space narrowing in the lumbar spine with facet arthrosis throughout the lumbar spine greatest at L4-5 and L5-S1. Atherosclerotic vascular calcifications. Procedure Note Andrew Randall MD - 11/07/2024 XR LUMBOSACRAL SPINE 2-3 VIEWS Referring clinician's provided indication for this examination in [facility]:Outside Radiology Order; Osteopenia; Pain; LOW BACK PAIN COMPARISON: Selected images from CT abdomen pelvis dated 10/31/2023. FINDINGS: There are some trace anterolisthesis of L4 on L5. Alignment otherwisepreserved. Vertebral body heights are maintained. Mild endplateosteophytes seen throughout the lumbar spine. There is mild diffuse discspace narrowing in the lumbar spine with facet arthrosis throughout thelumbar spine greatest at L4-5 and L5-S1. Atherosclerotic vascularcalcifications. IMPRESSION: Spondylitic changes described above. If there is a clinical concern for disc herniation or spinal canalstenosis MRI can be considered Andrew Kebede MD IMG XR SPINE Final Res ult documented in this encounter Visit Diagnoses Diagnosis Osteopenia, unspecified location- Primary Osteopenia, unspecified location documented in this encounter Additional Health Concerns Assessment Noted Time PHQ-2 Depression Total Score: 2 07/07/20 18 11:29 AM EDT documented as of this encounter Care Teams Crane Rigger Relationship Specialty Start Date End Date Andrew Kebede MD [address] [place] [address] [place] [address] [email or web address] PCP - General Internal Medicine 12/12/15 Shaq Wolff MD [address] [place] [address] Primary Oncologist Medical Oncology 06/24/23 Mariel Pollard FNP [address] [place] [phone] Nurse Practitioner Medical Oncology 11/01/23 05/01/25 documented as of this encounter Additional Source Comments The information contained in this document represents components of the legal health record. It is not the complete legal health record.[facility]
--- OUTSIDE RECORDS SUMMARY | 2025-07-13 23:02 | XMS_ITS | Encounter Summary ---
Author Organization [facility] Address [address] [place] [address] Care Team Providers Care Video Editing Internship Name Role Phone Andrew Kebede MD Primary Care Provider [phone] Andrew Kebede MD Unavailable PortiaCarina Colunga RN Unavailable Unavailable Reason for Visit * Reason Onset Date Comments Med Refill 09/22/2023 Encounter Details Date Type Department Care Team (Late Contact Info) Description 09/22/2023 Refill [facility] [address] [facility] [address] [place] [address] Andrew Kebede MD [address] [place] [phone] Constipation, unspecified constipation type; H/O breast surgery Social History Tobacco Use [...] Description 07/10/2025 11:59 PM EDT Anesthesia Event [facility] [address] [place] [address] Claudia Bell MD [address] [place] [address], [address] [place] [address] 07/19/2025 1:30 PM EDT Lab [facility] Hematology/Oncology Clinic [address] [place] [phone] 07/19/2025 2:00 PM EDT Office Visit [facility] [address] [place] [phone] Kartik Fields MD [address] [place] [address] 07/19/2025 2:00 PM EDT Office Visit [facility] Division of Palliative Care [address] [facility] [address] [place] [address] Sigrid Gaston MD [address] [facility] Re[facility] [address] [place] [address] 07/19/2025 3:00 PM EDT Office Visit [facility] [address] [facility] [address] [place] [address] Andrew Kebede MD [address] [place] [address] 07/25/2025 11:00 AM EDT Appointment [facility] [address] [place] [address] 08/13/2025 3:15 PM EST Appointment [facility] Radiation Oncology [address] [facility] [address] Luis Angel Reid MD [address] [facility]. [address] [place] [address] documented as of this encounter Visit Diagnoses Diagnosis Constipation, unspecified constipation type H/O breast surgery documented in this encounter Additional Health Concerns Infection Onset Date Last Indicated Resolved Time COVID-19 Rule-Out 01/14/2025 01/14/2025 01/14/2025 10:10 PM EDT documented as of this encounter Care Teams Video Editing Internship Relationship Specialty Start Date End Date Andrew Kebede MD [address] [place] [address] PCP - General 11/14/21 Andrew Kebede MD [address] [place] [address] 11/14/21 PortiaCarina Colunga, threading machine operatorExplosive Operator Supervisor 03/19/25 04/25/25 documented as of this encounter
--- OUTSIDE RECORDS SUMMARY | 2025-07-13 23:02 | XMS_ITS | Encounter Summary ---
Author Organization [facility] Address [address] [place] [address] Care Team Providers Care Global Compensation Manager Name Role Phone Andrew Kebede MD Primary Care Provider [phone] Andrew Kebede MD Unavailable PortiaCarina Colunga RN Unavailable Unavailable Reason for Visit * Reason Onset Date Comments Med Refill 09/07/2023 Encounter Details Date Type Department Care Team (Late st Contact Info) Description 09/07/2023 Refill [facility] [address] [facility] [address] [place] [address] Andrew Kebede MD [address] [place] [address] H/O breast surgery Social History [...] Description 07/10/2025 11:59 PM EDT Anesthesia Event [facility] [address] [place] [address] Claudia Bell MD [address] [facility], [address] [place] [address] 07/19/2025 1:30 PM EDT Lab [facility] Hematology/Oncology Clinic [address] [place] [address] 07/19/2025 2:00 PM EDT Office Visit [facility] [address] [place] [address] Kartik Fields MD [address] [place] [address] 07/19/2025 2:00 PM EDT Office Visit [facility] Division of Palliative Care [address] [facility] [address] [place] [address] Sigrid Gaston MD [address] [facility] Rehab [address] [place] [address] 07/19/2025 3:00 PM EDT Office Visit [facility] [address] [facility] [address] [place] [phone] Andrew Kebede MD [address] [place] [address] 07/25/2025 11:00 AM EDT Appointment [facility] [address] [place] [address] 08/13/2025 3:15 PM EST Appointment [facility] Radiation Oncology [address] [facility] [place] [address] Luis Angel Reid MD 800 [facility] [address] [place] [address] documented as of this encounter Visit Diagnoses Diagnosis H/O breast surgery documented in this encounter Additional Health Concerns Infection Onset Date Last Indicated Resolved Time COVID-19 Rule-Out 01/14/2025 01/14/2025 01/14/2025 10:10 PM EDT documented as of this encounter Care Teams Global Compensation Manager Relationship Specialty Start Date End Date Andrew Kebede MD [address] [place] [phone] PCP - General 11/14/21 Andrew Kebede MD [address] [place] [address] 11/14/21 PortiaCarina Colunga, jingle writerDigital Content Specialist 03/19/25 04/25/25 documented as of this encounter
--- OUTSIDE RECORDS SUMMARY | 2025-07-13 23:02 | XMS_ITS | Encounter Summary ---
Author Organization [facility] Address [address] [place] [address] Care Team Providers Care Top Ironer Name Role Phone Andrew Kebede MD Primary Care Provider [phone] Andrew Kebede MD Unavailable PortiaCarina Colunga RN Unavailable Unavailable Reason for Visit * Reason Onset Date Comments Call back from Dr. Kebede re: Most recent hospita l stay 04/27/2022 Med Refill 04/27/2022 Encounter Details Date Type Department Care Team (Late st Contact Info) Description 04/27/2022 Refill [facility] [address] [facility] [address] [place] [phone] Andrew Kebede MD [address] [place] [phone] Pain Social History Tobacco Use Types Packs/Day Years Used Date Smoking Tobacco: Never Assessed Comments Unknown Sex and Gender Information Value Date Recorded Sex Assigned at Female 12/24/2023 4:34 PM EDT Legal Sex Female 12:46 AM EST Gender Identity Female 12/24/2023 4:34 PM EDT Sexual Orientation Straight 12/24/2023 4: 34 PM EDT documented as of this encounter Miscellaneous Notes * Telephone Encounter - Ni Hayward [place] - 05/01/2022 11:16 AM EDT Pt called regarding this. She was expecting a call back regarding her stay. She also needed a refill for her medication. She is alslo taking Kepra? Asked me to add it to her chart. Seeing a neurologist? Had some tests done by Alexys Childers? * Telephone Encounter - Zunilda Villafuerte - 04/27/2022 10:56 AM EDT Pt would like a call back from Dr. Kebede re: her most recent hospital admittance. She said that shesent him an email, but would like to directly talk to him documented in this encounter Plan of Treatment Upcoming Encounters Date Type Department Care Team (Late st Contact Info) Description 07/10/2025 11:59 PM EDT Anesthesia Event [facility] [address] [place] [phone] Claudia Bell MD [address] [place] [address], [address] [place] [address] 07/19/2025 1:30 PM EDT Lab [facility] Hematology/Oncology Clinic [address] [place] [phone] 07/19/2025 2:00 PM EDT Office Visit [facility] [address] [place] [phone] Kartik Fields MD [address] [place] [address] 07/19/2025 2:00 PM EDT Office Visit [facility] Division of Palliative Care [address] [facility] [address] [place] [phone] Sigrid Gaston MD [address] [facility] [address] [place] [address] 07/19/2025 3:00 PM EDT Office Visit [facility] [address] [facility] [address] [place] [phone] Andrew Kebede MD [address] [place] [address] 07/25/2025 11:00 AM EDT Appointment [facility] [address] [place] [address] 08/13/2025 3:15 PM EST Appointment [facility] Radiation Oncology [address] [facility] [place] [phone] Luis Angel Reid MD 800 [facility] [address] [place] [address] documented as of this encounter Visit Diagnoses Diagnosis Pain Generalized pain documented in this encounter Additional Health Concerns Infection Onset Date Last Indicated Resolved Time COVID-19 Rule-Out 01/14/2025 01/14/2025 01/14/2025 10:10 PM EDT documented as of this encounter Care Teams Top Ironer Relationship Specialty Start Date End Date Andrew Kebede MD [address] [place] [phone] PCP - General 11/14/21 Andrew Kebede MD [address] [place] [address] 11/14/21 Carina Pearce, weblogic developerNaval Architect 03/19/25 04/25/25 documented as of this encounter
--- OUTSIDE RECORDS SUMMARY | 2025-07-13 23:02 | XMS_ITS | Encounter Summary ---
Author Organization [facility] Address [address] [place] [address] Care Team Providers Care Nurse Sane Name Role Phone Andrew Kebede MD Primary Care Provider Andrew Kebede MD Unavailable PortiaCarina Colunga RN Unavailable Unavailable Reason for Visit * Reason Onset Date Comments Med Refill 08/24/2023 Encounter Details Date Type Department Care Team (Late st Contact Info) Description 08/24/2023 Refill [facility] 800 [facility] [address] [place] [address] Andrew Kebede MD [address] [place] [address] H/O breast surgery Social History [...] Description 07/10/2025 11:59 PM EDT Anesthesia Event [facility] [address] [place] [address] Claudia Bell MD [address] [facility], [address] [place] [address] 07/19/2025 1:30 PM EDT Lab [facility] Hematology/Oncology Clinic [address] [place] [address] 07/19/2025 2:00 PM EDT Office Visit [facility] Breast Health Center [address] [place] [address] Kartik Fields MD [address] [place] [address] 07/19/2025 2:00 PM EDT Office Visit [facility] Division of Palliative Care [address] [facility] [address] [place] [address] Sigrid Gaston MD [address] [facility] [address] [place] [address] 07/19/2025 3:00 PM EDT Office Visit [facility] [address] [facility] [address] [place] [phone] Andrew Kebede MD [address] [place] [address] 07/25/2025 11:00 AM EDT Appointment [facility] [address] [place] [address] 08/13/2025 3:15 PM EST Appointment [facility] Oncology [address] [facility] [place] [address] Luis Angel Reid MD 800 [facility] [address] [place] [address] documented as of this encounter Visit Diagnoses Diagnosis H/O breast surgery documented in this encounter Additional Health Concerns Infection Onset Date Last Indicated Resolved Time COVID-19 Rule-Out 01/14/2025 01/14/2025 01/14/2025 10:10 PM EDT documented as of this encounter Care Teams Nurse Sane Relationship Specialty Start Date End Date Andrew Kebede MD [address] [place] [phone] PCP - General 11/14/21 Andrew Kebede MD [address] [place] [address] 11/14/21 PortiaCarina Colunga, hr recruiterPublic Administration Teacher 03/19/25 04/25/25 documented as of this encounter
--- OUTSIDE RECORDS SUMMARY | 2025-07-13 23:02 | XMS_ITS | Clinical Summary ---
Author Organization [facility] Address [address] [place] [address] Phone Care Team Providers Care Vacuum Frame Operator Name Role Phone Andrew Kebede MD Primary Care Provider [phone] Shaq Wolff MD Unavailable [phone] Allergies Active Allergy Reactions Criticality Noted Date Comments Acetaminophen 05/16/2015 Cephalexin 2023 Other Reaction(s): nausea, body pain Ciprofloxacin 2023 Other Reaction(s): nausea,vomitting and body pain. Fentanyl 02/06/2022 hypertension Fosfomycin 2023 Other Reaction(s): nausea, body pain Macrobid (Nitrofurantoin Monohyd/M-Cryst) 11/28/2023 Naproxen Sodium 07/13/2023 Nitroglycerin 07/13/2023 Other Reaction(s): Headache Penicillin 07/13/2023 Other Reaction(s): unknown reaction Prednisone Other (See Comments) 02/12/2016 abd tumors Guaifenesin Other (See Comments) 11/24/2023 Mouth burning Sulfa (Sulfonamide Antibiotics) Itching 02/12/2016 cellulitis Medications cycloSPORINE (RESTASIS) 0.05 % suspension Place 1 drop into each eye 2 (two) times a day. 2 Active polyethylene glycol (MIRALAX) 17 gram/dose powder Take 17 g by mouth daily. 4 Active estrogens, conjugated, (PREMARIN) 0.625 MG tablet Take 0.625 mg by mouth daily. Take daily for 21 days then do not take for 7 days. Active benzonatate (TESSALON) 100 MG capsule Take 1 capsule (100 mg total) by mouth 3 (three) times a day as needed for cough (if robitussin ineffective). 20 capsule 4 Active Additional Information Patient not taking.Reported on 05/30/2025 ALPRAZolam (XANAX) 0.5 MG tablet Take 1 tablet (0.5 mg total) by mouth every 8 (eight) hours as needed. 6 tablet 4 Active oxyCODONE HCl 10 mg Tab Take 5 mg by mouth every 6 (six) hours as needed. 4 Active lactulose (CONSTULOSE) 10 gram/15 mL solution Take 20 g by mouth as needed. Active furosemide (LASIX) 20 MG tablet Take 20 mg by mouth every other day. Active furosemide (LASIX) 40 MG tablet Take 40 mg by mouth every other day. Active aspirin 81 mg chewable tablet Take 81 mg by mouth daily. Active ondansetron (ZOFRAN) 4 MG tablet Take 4 mg by mouth every 8 (eight) hours as needed for nausea (Pt takes anywhere from 4-16 mg daily). Active clopidogrel (PLAVIX) 75 mg tablet Take 75 mg by mouth daily. Active rosuvastatin (CRESTOR) 20 MG tablet Take 20 mg by mouth daily. At HS Active nitroglycerin (NITROSTAT) 0.[address] 0.4 mg under the tongue every 5 (five) minutes as needed for chest pain. Active Active Problems Patient Care Coordination No te Formatting of this note migh t be different from the original. Height 159cm no shoes taken by OC 11/02/2023 Problem Noted Date Diagnosed Date History of AL (myocardial infarction) 05/30/2025 Chronic interstitial cystitis 05/30/2025 Melanoma of face 05/30/2025 Chronic back pain greater than 3 months duration 05/30/2025 Lesion of bone of thoracic spine 05/30/2025 COVID-19 11/22/2023 Assessment & Plan (11/28/2023 11:51 AM EST): -Patient presented with shortness of breath, cough, fever, weakness, nausea, body aches, sore throat for about 5 days Completed 5 days of remdesevir -CXR is clear -Started on Decadron 6mg daily, will complete a 10 day course cont albuterol, tessalon (intolerant of robitussin, acetaminophen, nsaids) - has weaned off oxygen Malignant neoplasm of right breast in female, estrogen receptor positive 07/12/2023 Malignant neoplasm of left b reast in female, estrogen receptor positive 07/12/2023 Fecal incontinence 04/20/2016 Crohn's disease 02/12/2016 Fibromyalgia 02/12/2016 Assessment & Plan (11/26/2023 4:57 PM EST): - reviewed PDMP -concerned she may have sedation with her home regimen of oxycodone and alprazolam but have ordered it with hold parameters for sedation and will monitor her Sciatica 02/12/2016 Overview (02/12/2016): With herniated discs Encounters Date Type Department Care Team Description 07/03/2025 Telephone [facility] at [address] [address] Shaq Wolff MD 05/30/2025 11:00 AM EDT Office Visit [facility] At [facility] Rad Onc [address] [place] [address] Feliz Ann MD Chronic interstitial cystitis (Primary Dx); Malignant neoplasm of overlapping sites of left breast in female, estrogen receptor positive; Malignant neoplasm of overlapping sites of right breast in female, estrogen receptor positive; Lesion of bone of thoracic spine 05/30/2025 Telephone [facility] at [address] [address] Shaq Wolff MD ([place] Pt) PET/CT records/images share w/ PCP 05/30/2025 Ancillary Orders [facility]Outside Imaging [address] [place] [address] Unknown, Damon, 05/25/2025 1:15 PM EDT - 05/25/2025 6:38 PM EDT Emergency [facility] Emergency [address] [place] [address] Discharge Disposition: Left Without Being Seen 05/25/2025 Telephone [facility] At [facility] Rad Onc [address] [place] [address] Feliz Ann MD 05/16/2025 9:40 AM EDT Telemedicine - audio only [facility] at [address] [address] Shaq Wolff MD Malignant neoplasm of right breast in female, estrogen receptor positive, unspecified site of breast (Primary Dx) 05/16/2025 Telephone [facility] at [address] [address] Shaq Wolff MD 05/10/2025 - 05/10/2025 11:59 PM EDT Hospital Encounter [facility],Outside Imaging [address] [place] [address] Unknown, Unknown, Discharge Disposition: Home or Self Care 05/10/2025 Orders Only [facility] at [address] [address] ProviderJazmine MD 05/02/2025 Telephone [facility] at [address] [address] Shaq Wolff MD 05/02/2025 Telephone [facility] at [address] [address] Shaq Wolff MD Appointment 04/12/2025 Telephone [facility] at [address] [address] Shaq Wolff MD from Last 3 Months Immunizations Immunization Administration Dates Next Due INFLUENZA, SPLIT VIRUS, TRIVALENT W/ PRESERVATIV E IM 06/04/2020,08/11/2018 Influenza High-Dose Trivalent Preservative Free IM 08/11/2018 Influenza Quadrivalent Preservative Free IM 05/12 Pneumococcal conjugate PCV13 06/22/2020,12/14/19 18 Family History Medical History Relation Comments Heart attack Father Relation Status Comments Father Social History Tobacco Use Types Packs/Day Years Used Date Smoking Tobacco: Former Cigarettes 0.3 20 Smokeless Tobacco: Never Tobacco Cessation:Counseling Given: Not Answered Alcohol Use Standard Drinks/Week Comments No 0 [...] on file Sexual Orientation Not on file Last Filed Vital Signs Vital Sign Reading Time Taken Comments Blood Pressure 124/76 05/30/2025 11:01 AM EDT Pulse 74 05/30/2025 11:01 AM EDT Temperature 36.7 C (98.1 F) 05/25/2025 1:40 PM EDT Respiratory Rate 18 05/25/2025 1:40 PM EDT Oxygen Saturation 95% 05/30/2025 11:01 AM EDT Inhaled Oxygen Concentration 36.6% 11/23/2023 4 :35 PM EST Weight 62.1 kg (137 lb) 11/06/2024 2:59 PM EST Height 159 cm (5' 2.6 ) 11/06/2024 2:59 PM EST Body Mass Index 24.58 11/06/2024 2:59 PM EST Plan of Treatment Health Maintenance Due Date Last Done Comments Adult Td,Tdap Booster 1952 SMOKING Hx and SMOKELESS TOBACCO SCREENING 1965 ZOSTER VACCINES (1 of 2) 1971 COLOGUARD 1997 COLONOSCOPY 1997 COLORECTAL CANCER SCREENING 1997 FIT TEST 1997 FOBT 1997 SIGMOIDOSCOPY 1997 VIRTUAL COLONOSCOPY 1997 OSTEOPOROSIS SCREENING INITIAL (ONE-TIME) 2017 DEPRESSION SCREENING 07/07/2019 07/07/2018 PNEUMOCOCCAL VACCINES (50+ years) (2 of 2 - PPSV23) 08/17/2020 06/22/2020, 12/13/2017 MAMMOGRAM 01/21/2024 01/20/2022 INFLUENZA VACCINE (#1) 2025 0, 06/04/2020, 08/11/2018, Additional history exists COVID-19 VACCINE ( - 2024- season) 2025 RSV VACCINE (1 - 1-dose 75+ series) 2027 LIPID PANEL 02/27/2030 02/27/2025, 02/09, 12/29/2024, Additional history exists HEPATITIS C SCREENING Completed 06/04/2022 HEPATITIS A VACCINES Aged Out No long er eligible based on patient's age to complete this topic HIB VACCINES Aged Out No longer eligi ble based on patient's age to complete this topic MENINGOCOCCAL VACCINES (ACWY) Aged Out No longer eligible based on patient's age to complete this topic MENINGOCOCCAL VACCINES (B) Aged Out N o longer eligible based on patient's age to complete this topic Medical Devices Implanted Type Area Coding Manager Device Identifier Shelf Expiration Date Model / Serial / Lot Implant Breast 200cc Silicone Smooth Round Cohesive Silicone Shell Od10.5cm P3.2cm - [id number] Implanted:Q[facility] [employer] 09/07/2026 350-2000B C / [id number] / [id number] Implant Breast 200cc Silicone Smooth Round Cohesive Silicone Shell Od10.5cm P3.2cm - [id number] Implanted:Qty: 1 on 02/20[facility]: Breast [employer]ON 12/30/2026 350-2001B C / [id number] / [id number] Stimulator Explanted: 016 (Quantity not on file) Stimulator Description:A counter incisi on was required to allow for removal of the wiring mechanism; after which, an x-ray was performed to ascertain full removal of all the metal parts. Per OP note in chart. 01/20/2022 [id number] Explanted Type Area Coding Manager Device Identifier Shelf Expiration Date Model / Serial / Lot Breast Implant Silicone 350 420 12.1 11.7cm [place] Saline Profile Moderate Plus Smooth Round Fill - [id number] Explanted:Qty: 1 on 02/20/[facility] [employer]YSON 350-2350 / / [id number] Breast Implant Silicone 350 420 12.1 11.7cm [place] Saline Profile Moderate Plus Smooth Round Fill - [id number] Explanted:Qty: 1 on 02/20/[facility] [employer]ON 350-2350 / / [id number] Procedures Procedure Name Priority Date/Time Associated Diagnosis Comments OUTSIDE IMAGING Routine 05/10/2025 3:24 PM EDT NM PET WHOLE BODY OUTSIDE (NO INTERPRETATION) Routine 05/10/2025 12:00 AM EDT BI MRI BREAST WITHOUT CONTRAST (BILATERAL) Routine 01/20/2022 5:49 PM EDT Breast implant rupture, initial encounter from Last 3 Months or Most Recently Relevant to Health Maintenance Results * Outside Imaging Report Only (05/10/2025 3:24 PM EDT) us Historical Provider MD RO XR CHEST Final Res ult * NM PET Whole Body Outside (No Interpretation) (05/10/2025 12:00 AM EDT) Narrative SYSTEMGENERATED, DOCUMENTATION - 05/30/2025 11:13 AM EDT This study is for PACS storage only and not for interpretation. us Unknown Unknown MD RO OUTSIDE IMAGING W/OUT INT ERPRETATION Final Result * BI MRI BREAST WITHOUT CONTRAST (BILATERAL) (01/20/2022 5:49 PM EDT) Anatomical Region Laterality Modality Breast Left, Breast Right, Breast Bilateral Bila teral Magnetic Resonance 01/20/2022 Impressions 01/21/2022 9:41 AM EDT Normal retropectoral silicone implants bilaterally without evidence of rupture. BI-RADS Category 2: Benign Finding Patient's information is entered into a reminder system with a target due date for the next exam. We support the [place] [employer] guidelines for early breast cancer detection in women at increased risk for breast cancer. These guidelines recommend breast MRI in combination with mammography for women at 20% or greater lifetime risk of breast cancer. Narrative 01/21/2022 9:41 AM EDT HISTORY: 71 year old patient seen to evaluate integrity of implants. COMPARISON: No relevant prior imaging available. TECHNIQUE: The patient was placed prone in a bilateral dedicated 16 channel open breast coil ([employer]) and the following series were obtained with a 3.0 Suzie 750 MR scanner ([employer]): 3-plane localizer, axial Cube T2, axial STIR water saturation, right sagittal STIR water saturation, and left sagittal STIR water saturation. Multi-planar reconstructions in sagittal and coronal orientations were created from the acquired axial plane images. BREAST MRI FINDINGS: Please note this examination is not tailored for evaluation of the breast parenchyma. There is heterogenous fibroglandular tissue. There are normal appearing retropectoral silicone implants bilaterally. There are complex radial folds bilaterally without MR evidence of intracapsular or extracapsular rupture. Mildly T2 hyperintense lesions in the liver measuring up to 1.7 cm in the right hepatic lobe likely represent hemangiomas, as described on prior outside CT reports. Procedure Note Andrew Bull MD - 01/21/2022 HISTORY: 71 year old patient seen to evaluate integrity of implants. COMPARISON: No relevant prior imaging available. TECHNIQUE: The patient was placed prone in a bilateral dedicated 16 channel openbreast coil ([employer]) and the following series were obtainedwith a 3.0 Suzie 750 MR scanner ([employer]): 3-plane localizer, axial Cube T2,axial STIR water saturation, right sagittal STIR water saturation, andleft sagittal STIR water saturation. Multi-planar reconstructions in sagittal and coronal orientations werecreated from the acquired axial plane images. BREAST MRI FINDINGS: Please note this examination is not tailored for evaluation of the breastparenchyma. There is heterogenous fibroglandular tissue. There are normal appearing retropectoral silicone implants bilaterally.There are complex radial folds bilaterally without MR evidence ofintracapsular or extracapsular rupture. Mildly T2 hyperintense lesions in the liver measuring up to 1.7 cm in theright hepatic lobe likely represent hemangiomas, as described on prioroutside CT reports. IMPRESSION: Normal retropectoral silicone implants bilaterally without evidence ofrupture. BI-RADS Category 2: Benign Finding Patient's information is entered into a reminder system with a target duedate for the next exam. We support the [place] [employer] guidelines for early breast cancerdetection in women at increased risk for breast cancer. These guidelinesrecommend breast MRI in combination with mammography for women at 20% orgreater lifetime risk of breast cancer. Chris Arango MD IMG MR BREAST Fin al Result from Last 3 Months or Most Recently Relevant to Health Maintenance Insurance MEDICARE PART A & B Member Subscriber Plan / Payer (Ef fective 2014-Present) Name:Latrice Villanuevaricia Member ID:[id number] Relation to Subscriber:Self Name:Jesusita Villanueva Subscriber ID:[id number] Payer ID:[id number] Group ID:Not on file Type:Medicare Address: [facility] Donate Your Desktop [facility] DIVISIONLocal Lift [facility] [address] [facility] [address] [employer] MEDICARE ENHANCE SUPPLEMENT MEDICARE PART A & B [employer] MEDICARE ENHANCE SUPPLEMENT [facility] Address: [facility] [id number] [place] [id number] MEDICARE PART A & B Member Subscriber Plan / Payer (Ef fective 2014-Present) Name:Jesusita Villanueva Member ID:[id number] Relation to Subscriber:Self Name:Jesusita Villanueva Subscriber ID:[id number] Payer ID:[id number] Group ID:Not on file Type:Medicare Address: [employer] [address] [place] [phone] MEDICARE PART A & B MEDICARE PART A & B MEDICARE ENHANCE SUPPLEMENT MEDICARE PART A & B MEDICARE ENHANCE SUPPLEMENT [facility] Address: [facility] [id number] [place] [id number] MEDICARE PART A & B MEDICARE PART A & B [facility] MEDICARE ENHANCE SUPPLEMENT MEDICARE PART A & B [facility] MEDICARE ENHANCE SUPPLEMENT Advance Directives For more information, please contact: [phone] (9AM - 5PM Mariya/[facility], Wednesday-Wednesday) Documents on File Type Date Recorded Patient Teacher Dancing Expl anation Healthcare Proxy 11/29/2023 10:08 [facility] * DNR/DNI (No CPR/No Intubation) (Latest Code Status on File) Date Activated Date Inactivated Comments 11/22/2023 7:55 PM Question Answer Comments Code Status Confirmed With: Patient * Full Code (Presumed) Date Activated Date Inactivated Comments 04/20/2016 7:23 AM 04/20/2016 1:47 PM Care Teams Vacuum Frame Operator Relationship Specialty Start Date End Date Andrew Kebede MD [address] [place] [address] [address] [place] [address] [email or web address] PCP - General Internal Medicine 12/12/15 Shaq Wolff MD [address] [place] [id number] [email or web address] Primary Oncologist Medical Oncology 06/24/23 Additional Source Comments The information contained in this document represents components of the legal health record. It is not the complete legal health record.[facility]
--- OUTSIDE RECORDS SUMMARY | 2025-07-13 23:03 | XMS_ITS | Encounter Summary ---
Author Organization [facility] Address [address] [place] [address] Care Team Providers Care Store Stock Associate Name Role Phone Andrew Kebede MD Primary Care Provider [phone] Andrew Kebede MD Unavailable PortiaCarina Colunga RN Unavailable Unavailable Reason for Visit * Reason Onset Date Comments Med Refill 10/20/2023 Encounter Details Date Type Department Care Team (Late st Contact Info) Description 10/20/2023 Refill [facility] [address] [facility] [address] [place] [address] Andrew Kebede MD [address] [place] [address] H/O breast surgery Social History [...] Description 07/10/2025 11:59 PM EDT Anesthesia Event [facility] Imaging [address] [place] [address] Claudia Bell MD [address] [facility], [address] [place] [address] 07/19/2025 1:30 PM EDT Lab [facility] Hematology/Oncology Clinic [address] [place] [address] 07/19/2025 2:00 PM EDT Office Visit [facility] [address] [place] [address] Kartik Fields MD [address] [place] [address] 07/19/2025 2:00 PM EDT Office Visit [facility] Division of Palliative Care [address] [facility] [address] [place] [address] Sigrid Gaston MD [address] [facility] [address] [place] [address] 07/19/2025 3:00 PM EDT Office Visit [facility] [address] [facility] [address] [place] [address] Andrew Kebede MD [address] [place] [address] 07/25/2025 11:00 AM EDT Appointment [facility] [address] [place] [address] 08/13/2025 3:15 PM EST Appointment [facility] Radiation Oncology [address] [facility] [place] [address] Luis Angel Reid MD [address] [facility] [address] [place] [address] documented as of this encounter Visit Diagnoses Diagnosis H/O breast surgery documented in this encounter Additional Health Concerns Infection Onset Date Last Indicated Resolved Time COVID-19 Rule-Out 01/14/2025 01/14/2025 01/14/2025 10:10 PM EDT documented as of this encounter Care Teams Store Stock Associate Relationship Specialty Start Date End Date Andrew Kebede MD [address] [place] [phone] PCP - General 11/14/21 Andrew Kebede MD [address] [place] [address] 11/14/21 PortiaCarina Colunga, floor care technicianTop Precipitator Operator 03/19/25 04/25/25 documented as of this encounter
--- OUTSIDE RECORDS SUMMARY | 2025-07-13 23:03 | XMS_ITS | Encounter Summary ---
Author Organization [facility] Address [address] [place] [address] Care Team Providers Care Laser Beam Trim Operator Name Role Phone Andrew Kebede MD Primary Care Provider [phone] Andrew Kebede MD Unavailable PortiaCarina Colunga RN Unavailable Unavailable Reason for Visit * Reason Onset Date Comments Med Refill 08/23/2023 Encounter Details Date Type Department Care Team (Late st Contact Info) Description 08/23/2023 Refill [facility] [address] [facility] [address] [place] [address] Andrew Kebede MD [address] [place] [address] H/O breast surgery Social History Tobacco [...] Telephone Encounter - Andrew Kebede MD - 08/23/2023 4:47 PM EST Pulse: BP: Lungs: clear CV: no murmur rub gallop Abd: no mass tenderness organomegaly Extremities: no edema documented in this encounter Plan of Treatment Upcoming Encounters Date Type Department Care Team (Late st Contact Info) Description 07/10/2025 11:59 PM EDT Anesthesia Event [facility] Imaging [address] [place] [phone] Claudia Bell MD [address] [facility], [address] [place] [address] 07/19/2025 1:30 PM EDT Lab [facility] Hematology/Oncology Clinic [address] [place] [phone] 07/19/2025 2:00 PM EDT Office Visit [facility] [address] [place] [phone] Kartik Fields MD [address] [place] [address] 07/19/2025 2:00 PM EDT Office Visit [facility] Division of Palliative Care [address] [facility] [address] [place] [phone] Sigrid Gaston MD [address] [facility] [address] [place] [address] 07/19/2025 3:00 PM EDT Office Visit [facility] [address] [facility] [address] [place] [phone] Andrew Kebede MD [address] [place] [phone] 07/25/2025 11:00 AM EDT Appointment [facility] [address] [place] [phone] 08/13/2025 3:15 PM EST Appointment [facility] Radiation Oncology [address] [facility] [place] [phone] Luis Angel Reid MD [address] [facility] [address] [place] [phone] documented as of this encounter Visit Diagnoses Diagnosis H/O breast surgery documented in this encounter Additional Health Concerns Infection Onset Date Last Indicated Resolved Time COVID-19 Rule-Out 01/14/2025 01/14/2025 01/14/2025 10:10 PM EDT documented as of this encounter Care Teams Laser Beam Trim Operator Relationship Specialty Start Date End Date Andrew Kebede MD [address] [place] [phone] PCP - General 11/14/21 Andrew Kebede MD [address] [place] [phone] 11/14/21 Carina Pearce, telegraph plant maintainerData Steward 03/19/25 04/25/25 documented as of this encounter
--- OUTSIDE RECORDS SUMMARY | 2025-07-13 23:03 | XMS_ITS | Encounter Summary ---
Author Organization [facility] Address [address] [place] [address] Care Team Providers Care Senior Analysis Specialist Name Role Phone Andrew Kebede MD Primary Care Provider [phone] Andrew Kebede MD Unavailable Reason for Visit * Reason Onset Date Comments call back 06/21/2025 would like a promise l back from PCP Encounter Details Date Type Department Care Team (Late st Contact Info) Description 06/21/2025 Telephone [facility] [address] [facility] [address] [place] [address] Andrew Kebede MD [address] [place] [phone] call back (would like a call back from PCP) Social History Tobacco Use Types Packs/Day Years Used Date Smoking Tobacco: Former Cigarettes 1991 Smokeless Tobacco: Never Alcohol Use Standard Drinks/Week Comments Never 0 (1 standard drink = 0.6 oz pur e alcohol) Utilities Answer Date Recorded In the past 12 months has [employer], gas, oil, or water [employer] threatened to shut off services in your [...] place to sleep or slept in a prison (including now)? No 12/24/2023 Housing Stability Vital Sign Answer Ethan e Recorded Unable to Pay for Housing in the Last Year Not o n file 03/01/2025 Number of Times Moved in the Last Year Not on fi le 03/01/2025 At any time in the past 12 m [facility], were you homeless or living in a prison (including now)? No 03/01/2025 Comments No Sex [...] encounter Miscellaneous Notes * Telephone Encounter - Rosalba Bills MA - 06/21/2025 8:46 AM EDT would like a call back from PCP documented in this encounter Plan of Treatment Upcoming Encounters Date Type Department Care Team (Late st Contact Info) Description 07/10/2025 11:59 PM EDT Anesthesia Event [facility] [address] [place] [address] Claudia Bell MD [address] [place] [address] [address] [place] [address] 07/19/2025 1:30 PM EDT Lab [facility] Hematology/Oncology Clinic [address] [place] [phone] 07/19/2025 2:00 PM EDT Office Visit [facility] [address] [place] [phone] Kartik Fields MD [address] [place] [address] 07/19/2025 2:00 PM EDT Office Visit [facility] Division of Palliative Care 800 [facility] [address] [place] [phone] Sigrid Gaston MD 800 [facility] Rehab 3 [place] [address] 07/19/2025 3:00 PM EDT Office Visit [facility] 800 [facility] 1 [place] [address] Andrew Kebede MD [address] [place] [address] 07/25/2025 11:00 AM EDT Appointment [facility] 800 [place] [phone] 08/13/2025 3:15 PM EST Appointment [facility] Radiation Oncology 800 [facility] [place] [phone] Luis Angel Reid MD 800 [facility] [address] [place] [phone] documented as of this encounter Visit Diagnoses Not on filedocumented in this encounter Care Teams Senior Analysis Specialist Relationship Specialty Start Date End Date Andrew Kebede MD [address] [place] [phone] PCP - General 11/14/21 Andrew Kebede MD [address] [place] [address] 11/14/21 documented as of this encounter
--- OUTSIDE RECORDS SUMMARY | 2025-07-13 23:03 | XMS_ITS | Encounter Summary ---
Author Organization [facility] Address [address] [place] [address] Care Team Providers Care Senior Java Web Developer Name Role Phone Andrew Kebede MD Primary Care Provider [phone] Andrew Kebede MD Unavailable Encounter Details Date Type Department Care Team (Late st Contact Info) Description 07/08/2025 Telephone [facility] [address] [place] [address] Thien Verdin MD [address] [place] [address] Social History Tobacco Use Types Packs/Day Years Used Date Smoking Tobacco: Former Cigarettes 1991 Smokeless Tobacco: Never Alcohol Use Standard Drinks/Week Comments Never 0 (1 standard drink = 0.6 oz pur e alcohol) Utilities Answer Date Recorded In the past 12 months has [employer], [employer], oil, or water [employer] threatened to shut off services in your [...] place to sleep or slept in a half-way (including now)? No 12/24/2023 Housing Stability Vital Sign Answer Ethan e Recorded Unable to Pay for Housing in the Last Year Not o n file 03/01/2025 Number of Times Moved in the Last Year Not on fi le 03/01/2025 At any time in the past 12 m [facility], were you homeless or living in a half-way (including now)? No 03/01/2025 Comments No Sex [...] 1:00 AM EDT Bronson Wilkins RN * Are you blind or do you [...] encounter Miscellaneous Notes * Telephone Encounter - Thien Verdin MD - 07/09/2025 10:18 AM EDT On-call: Multiple [place] text from the page key operator on this patient on 07/08/2025. I reached out to patient within 10 minutes of each [place] text and went directly to voicemail. I then started receivingpriority text messages on same patient. Call returned again and went directly to voicemail. I called the page key operator directly and she told me that the patient has been calling everybody [facility] to let them know that her pages to the [facility] doctor have not been returned. I asked thepage key operator to dial the patient's number and it went directly to voicemail. This all took place around 7:30 PM. I received no further pages from the patient. documented in this encounter Plan of Treatment Upcoming Encounters Date Type Department Care Team (Late st Contact Info) Description 07/10/2025 11:59 PM EDT Anesthesia Event [facility] 800 [place] [address] Claudia Bell MD [address] [facility], [address] [place] [address] 07/19/2025 1:30 PM EDT Lab [facility] Hematology/Oncology Clinic [address] [place] [phone] 07/19/2025 2:00 PM EDT Office Visit [facility] Breast Health Center [address] [place] [phone] Kartik Fields MD 800 [place] [address] 07/19/2025 2:00 PM EDT Office Visit [facility] Division of Palliative Care 800 [facility] [address] [place] [phone] Sigrid Gaston MD [address] [facility] Rehab 3 [place] [address] 07/19/2025 3:00 PM EDT Office Visit [facility] [address] [facility] [address] [place] [phone] Andrew Kebede MD [address] [place] [phone] 07/25/2025 11:00 AM EDT Appointment [facility] 800 [place] [phone] 08/13/2025 3:15 PM EST Appointment [facility] Radiation Oncology 800 [facility] [place] [phone] Luis Angel Reid MD 800 [facility]. [address] [place] [phone] documented as of this encounter Goals Goal Patient Goal Type Associated Problems Recent Progress Patient-Stated? 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
--- OUTSIDE RECORDS SUMMARY | 2025-07-13 23:03 | XMS_ITS | Encounter Summary ---
Author Organization [facility] Address [address] [place] [address] Care Team Providers Care Cash Specialist Name Role Phone Andrew Kebede MD Primary Care Provider [phone] Andrew Kebede MD Unavailable Reason for Visit * Reason Onset Date Comments Requesting a Call 07/06/2025 Encounter Details Date Type Department Care Team (Late st Contact Info) Description 07/06/2025 Telephone [facility] [address] [place] [address] Jailene Karin [place] Requesting a Call Social History Tobacco Use Types Packs/Day Years Used Date Smoking Tobacco: Former Cigarettes 1991 Smokeless Tobacco: Never Alcohol Use Standard Drinks/Week Comments Never 0 (1 standard drink = 0.6 oz pur e alcohol) Utilities Answer Date Recorded In the past 12 months has [employer], gas, oil, or water [employer] threatened to shut off services in your [...] place to sleep or slept in a care home (including now)? No 12/24/2023 Housing Stability Vital Sign Answer Ethan e Recorded Unable to Pay for Housing in the Last Year Not o n file 03/01/2025 Number of Times Moved in the Last Year Not on fi le 03/01/2025 At any time in the past 12 m [facility], were you homeless or living in a care home (including now)? No 03/01/2025 Comments No Sex [...] 1:00 AM EDT Bronson Wilkins, BERT * Because of a physical, mental, or emotional condition, do you have difficulty doing errands such asvisiting the doctor's office or shopping? Answer Date of Assessment Author No 01/15/2025 1:00 AM EDT Bronson Wilkins, RN documented as of this encounter Mental Status * Because of a physical, mental, or emotional condition, do you have serious difficulty concentrating, remembering, or making decisions? Answer Entry Date Author No 01/15/2025 1:00 AM EDT Bronson Wilkins, BERT documented in this encounter Miscellaneous Notes * Telephone Encounter - Chayo Benítez RN - 07/06/2025 2:23 PM EDT Clopidogrel was refilled by Dr Kebede in April with years suply. Lasix refill sent to Dr Kebede for dose clarification -pt reports her dose has been changed. Also sent controlled refill to Dr Kebede for review. * Telephone Encounter - Marina Gregory - 07/06/2025 11:55 AM EDT furosemide (Lasix) 20 mg tablet lupis Rosen called they need a new script for it because it wouldn't go through at first because it is early to refill. Patient told the pharmacy she was instructed to take more of the medication. The pharmacy is requesting a new script to be sent for that reason. [id number] [place], [place] - [facility] [address] P: [phone] F: [phone] Address [address] [facility] [address] Store number: [id number] [address] the intersection of: [address] * Telephone Encounter - Chris Bowers - 07/06/2025 11:54 AM EDT I called patient, no answer, left voicemail to give me a call back. * Telephone Encounter - Karin Dent MA - 07/06/2025 11:36 AM EDT Patient called requesting medications and : furosemide (Lasix) 20 mg tablet clopidogrel (Plavix) 75 mg tablet oxyCODONE (Roxicodone) 15 mg immediate release tablet [id number] [place], [place] - [facility] [address] P: [phone] F: [phone] Note: Patient is also requesting a call from Chris. documented in this encounter Plan of Treatment Upcoming Encounters Date Type Department Care Team (Late st Contact Info) Description 07/10/2025 11:59 PM EDT Anesthesia Event [facility] 800 [place] [address] Claudia Bell MD [address] [facility], [address] [place] [address] 07/19/2025 1:30 PM EDT Lab [facility] Hematology/Oncology Clinic [address] [place] [phone] 07/19/2025 2:00 PM EDT Office Visit [facility] Breast Health Center [address] [place] [address] Kartik Fields MD [address] [place] [address] 07/19/2025 2:00 PM EDT Office Visit [facility] Division of Palliative Care [address] [facility] [address] [place] [address] Sigrid Gaston MD 800 [facility] Rehab 3 [place] [address] 07/19/2025 3:00 PM EDT Office Visit [facility] [address] [facility] [address] [place] [phone] Andrew Kebede MD [address] [place] [phone] 07/25/2025 11:00 AM EDT Appointment [facility] 800 [place] [phone] 08/13/2025 3:15 PM EST Appointment [facility] Radiation Oncology [address] [facility] [place] [phone] Luis Angel Reid MD 800 [facility] [address] [place] [address] documented as of this encounter Goals Goal Patient Goal Type Associated Problems Recent Progress Patient-Stated? 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
--- OUTSIDE RECORDS SUMMARY | 2025-07-13 23:03 | XMS_ITS | Encounter Summary ---
Author Organization [facility] Address [address] [facility] [address] [place] [address] Phone Care Team Providers Care Electric Wirer Name Role Phone Andrew Kebede MD Primary Care Provider [phone] Shaq Wolff MD Unavailable [phone] Mairel Pollard Unavailable Encounter Details Date Type Department Care Team (Late st Contact Info) Description 08/03/2023 Procedure [facility], Ct Scan - [address] [address] Social History Tobacco Use Types Packs/Day Years [...] with a working camera? Not on file Comments No Sex and Gender Information Value Date Recorded Sex Assigned at Not on file Legal Sex Female 7:28 PM EST Gender Identity Not on file Sexual Orientation Not on file documented as of this encounter Functional Status * Calculated C-SSRS Risk Score (Lifetime/Recent) Answer Date of Assessment Author No Risk Indicated 08/03/2023 1:24 PM EDT Awa Rivero RN * [place] Suicide Severity Rating Scale (Screener/Recent Self-Report) Question Answer Date of Assessment Author 1. Wish to be (Past 1 Month) No 023 1:24 PM EDT Awa Rivero RN 2. Non-Specific Active Suici abraham Thoughts (Past 1 Month) No 08/03/2023 1:24 PM EDT Rose Rivero RN 6. Suicidal Behavior (Lifetime) No 1:24 PM EDT Awa Rivero RN documented as of this encounter Plan of Treatment Not on file documented as of this encounter Visit Diagnoses Not on filedocumented in this encounter Additional Health Concerns Infection Onset Date Last Indicated Resolved Time CoV-Risk 11/22/2023 11/22/2023 11/22/2023 2:27 PM EST COVID-19 11/22/2023 11/28/2023 12/19/2023 1:21 AM EST Assessment Noted Time PHQ-2 Depression Total Score: 2 07/07/20 18 11:29 AM EDT documented as of this encounter Care Teams Electric Wirer Relationship Specialty Start Date End Date Andrew Kebede MD [address] [place] [address] [place] [phone] [email or web address] PCP - General Internal Medicine 12/12/15 Shaq Wolff MD [address] [place] [phone] [email or web address] Primary Oncologist Medical Oncology 06/24/23 Mariel Pollard FNP [address] [place] [address] Nurse Practitioner Medical Oncology 11/01/23 05/01/25 documented as of this encounter Additional Source Comments The information contained in this document represents components of the legal health record. It is not the complete legal health record.[facility]
--- OUTSIDE RECORDS SUMMARY | 2025-07-13 23:03 | XMS_ITS | Encounter Summary ---
Author Organization [facility] Address [address] [place] [address] Care Team Providers Care In Home Sales Representative Name Role Phone Andrew Kebede MD Primary Care Provider [phone] Andrew Kebede MD Unavailable PortiaCarina Colunga RN Unavailable Unavailable Encounter Details Date Type Department Care Team (Late st Contact Info) Description 02/29/2024 Refill [facility] [address] [place] [address] Andrew Kebede MD [address] [place] [address] Social History Tobacco Use Types Packs/Day Years Used Date Smoking Tobacco: Never Smokeless Tobacco: Never Alcohol Use Standard Drinks/Week Comments Never 0 (1 standard drink = 0.6 oz pur e alcohol) AUDIT-C Answer Date Recorded Q1: How often do you have a drink containing alcohol? Never 12/24/2023 Q2: How many drinks containi ng alcohol do you have on a typical day when you are drinking? Patient does not drink Q3: How often do you have si x or more drinks on one occasion? Never 12/24/2023 Overall Financial Resource Strain (CARDIA) Answe r Date Recorded How hard is it for you to pa y for the very basics like food, housing, medical care, and heating? Patient unable to answer 12/24/2023 Hunger Vital Sign Answer Date Recorded Within the past 12 months, y ou worried that your food would run out before you got the money to buy more. Patient declined Ran Out of Food in the Last Year Not on file 12/24/2023 PRAPARE - Transportation Answer Date Re corded In the past 12 months, has l ack of transportation kept you from medical appointments or from getting medications? No 12/09 In the past 12 months, has l ack of transportation kept you from meetings, work, or from getting things needed for daily living? No 12/24/2023 Housing Stability Vital Sign Answer Ethan e Recorded Unable to Pay for Housing in the Last Year Not o n file 12/24/2023 Number of Places Lived in the Last Year Not on f ile 12/24/2023 In the last 12 months, was t here a time when you did not have a steady place to sleep or slept in a snf (including now)? No 12/24/2023 Comments No Sex and Gender Information Value Date Recorded Sex Assigned at Female 12/24/2023 4:34 PM EDT Legal Sex Female 12:46 AM EST Gender Identity Female 12/24/2023 4:34 PM EDT Sexual Orientation Straight 12/24/2023 4: 34 PM EDT documented as of this encounter Miscellaneous Notes * Telephone Encounter - Andrew Kebede MD - 02/29/2024 3:50 PM EDT Pulse: BP: Lungs: clear CV: no murmur rub gallop Abd: no mass tenderness organomegaly Extremities: no edema documented in this encounter Plan of Treatment Upcoming Encounters Date Type Department Care Team (Late st Contact Info) Description 07/10/2025 11:59 PM EDT Anesthesia Event [facility] [address] [place] [address] Claudia Bell MD [address] [place] [address], [address] [place] [address] 07/19/2025 1:30 PM EDT Lab [facility] Hematology/Oncology Clinic [address] [place] [address] 07/19/2025 2:00 PM EDT Office Visit [facility] Breast Health Center [address] [place] [address] Kartik Fields MD 800 [place] [address] 07/19/2025 2:00 PM EDT Office Visit [facility] Division of Palliative Care [address] [facility] [address] [place] [address] Sigrid Gaston MD [address] [facility] Rehab 3 [place] [address] 07/19/2025 3:00 PM EDT Office Visit [facility] [address] [facility] [address] [place] [phone] Andrew Kebede MD [address] [place] [phone] 07/25/2025 11:00 AM EDT Appointment [facility] 800 [place] [address] 08/13/2025 3:15 PM EST Appointment [facility] Radiation Oncology [address] [facility] [place] [address] Luis Angel Reid MD [address] [facility] [address] [place] [phone] documented as of this encounter Visit Diagnoses Not on filedocumented in this encounter Additional Health Concerns Infection Onset Date Last Indicated Resolved Time COVID-19 Rule-Out 01/14/2025 01/14/2025 01/14/2025 10:10 PM EDT documented as of this encounter Care Teams In Home Sales Representative Relationship Specialty Start Date End Date Andrew Kebede MD [address] [place] [address] PCP - General 11/14/21 Andrew Kebede MD [address] [place] [address] 11/14/21 Carina Pearce RN Care Webmaster 03/19/25 04/25/25 documented as of this encounter
--- OUTSIDE RECORDS SUMMARY | 2025-07-13 23:03 | XMS_ITS | Encounter Summary ---
Author Organization [facility] Address [address] [place] [address] Care Team Providers Care Labview Programmer Name Role Phone Andrew Kebede MD Primary Care Provider [phone] Andrew Kebede MD Unavailable Encounter Details Date Type Department Care Team (Late st Contact Info) Description 07/09/2025 Refill [facility] [address] [place] [address] Andrew Kebede MD [address] [place] [address] Edema, unspecified type Social History Tobacco Use Types Packs/Day Years Used Date Smoking Tobacco: Former Cigarettes 1991 Smokeless Tobacco: Never Alcohol Use Standard Drinks/Week Comments Never 0 (1 standard drink = 0.6 oz pur e alcohol) Utilities Answer Date Recorded In the past 12 months has [employer], gas, oil, or water [employer] threatened to shut off services in your [...] place to sleep or slept in a custodial (including now)? No 12/24/2023 Housing Stability Vital Sign Answer Ethan e Recorded Unable to Pay for Housing in the Last Year Not o n file 03/01/2025 Number of Times Moved in the Last Year Not on fi le 03/01/2025 At any time in the past 12 m [facility], were you homeless or living in a custodial (including now)? No 03/01/2025 Comments No Sex [...] 01/15/2025 1:00 AM EDT Bronson Wilkins, RN * Do you have serious difficulty walking or climbing stairs? Answer Date of Assessment Author No 01/15/2025 1:00 AM EDT Bronson Wilkins, BERT * Do you have serious difficulty dressing [...] Telephone Encounter - Andrew Kebede MD - 07/09/2025 9:31 AM EDT Refill to reflect current dosage documented in this encounter Plan of Treatment Upcoming Encounters Date Type Department Care Team (Late st Contact Info) Description 07/10/2025 11:59 PM EDT Anesthesia Event [facility] [address] [place] [phone] Claudia Bell MD [address] [place] [address] [address] [place] [address] 07/19/2025 1:30 PM EDT Lab [facility] Hematology/Oncology Clinic [address] [place] [phone] 07/19/2025 2:00 PM EDT Office Visit [facility] [address] [place] [address] Kartik Fields MD [address] [place] [address] 07/19/2025 2:00 PM EDT Office Visit [facility] Division of Palliative Care 800 [facility] [address] [place] [phone] Sigrid Gaston MD [address] [place] [address] Rehab 3 [place] [address] 07/19/2025 3:00 PM EDT Office Visit [facility] 800 [facility] 1 [place] [phone] Andrew Kebede MD [address] [place] [address] 07/25/2025 11:00 AM EDT Appointment [facility] [address] [place] [phone] 08/13/2025 3:15 PM EST Appointment [facility] Radiation Oncology 800 [facility] [place] [phone] Luis Angel Reid MD 800 [facility] [address] [place] [phone] documented as of this encounter Goals Goal Patient Goal Type Associated Problems Recent Progress Patient-Stated? Author Autogenerat ed Goal Care Plan Autogenerated Problem No Nirav Miguel DO documented as of this encounter Visit Diagnoses Diagnosis Edema, unspecified type documented in this encounter Additional Health Concerns Active Problems Noted Date Diagnosed Date Autogenerated Problem 06/29/2025 documented as of this encounter Care Teams Labview Programmer Relationship Specialty Start Date End Date Andrew Kebede MD [address] [place] [address] PCP - General 11/14/21 Andrew Kebede MD [address] [place] [address] 11/14/21 documented as of this encounter
--- OUTSIDE RECORDS SUMMARY | 2025-07-13 23:03 | XMS_ITS | Encounter Summary ---
Author Organization [facility] Address [address] [facility] [address] [place] [address] Phone Care Team Providers Care Change Of Address Clerk Name Role Phone Andrew Kebede MD Primary Care Provider [phone] Shaq Wolff MD Unavailable [phone] Mariel Pollard Unavailable [phone] Encounter Details Date Type Department Care Team (Late st Contact Info) Description 10/31/2023 Procedure Pass [facility] Scan - [address] [address] Social History Tobacco Use Types Packs/Day Years [...] Date of Assessment Author No Risk Indicated 10/31/2023 7:12 PM Ni Mejia RN * [place] Suicide Severity Rating Scale (Screener/Recent Self-Report) Question Answer Date of Assessment Author 1. Wish to be (Past 1 Month) No 024 7:12 PM Ni Mejia RN 2. Non-Specific Active Suici abraham Thoughts (Past 1 Month) No 10/31/2023 7:12 PM Liset Mejia RN 6. Suicidal Behavior (Lifetime) No 7:12 PM Ni Mejia RN documented as of this encounter Plan [...] documented as of this encounter Care Teams Change Of Address Clerk Relationship Specialty Start Date End Date Andrew Kebede MD [address] [place] [address] [place] [address] [email or web address] PCP - General Internal Medicine 12/12/15 Shaq Wolff MD [address] [place] [address] [email or web address] Primary Oncologist Medical Oncology 06/24/23 Mariel Pollard FNP [address] [place] [address] [email or web address] Nurse Practitioner Medical Oncology 11/01/23 05/01/25 documented as of this encounter Additional Source Comments The information contained in this document represents components of the legal health record. It is not the complete legal health record.[facility]
--- OUTSIDE RECORDS SUMMARY | 2025-07-13 23:03 | XMS_ITS | Encounter Summary ---
Author Organization [facility] Address [address] [place] [address] Care Team Providers Care Harnessmaker Apprentice Name Role Phone Andrew Kebede MD Primary Care Provider [phone] Andrew Kebede MD Unavailable Encounter Details Date Type Department Care Team (Late st Contact Info) Description 06/08/2025 Refill [facility] [address] [place] [address] Andrew Kebede MD [address] [place] [address] Carcinoma of breast metastatic to bone, unspecified laterality (Multi-HCC) (Primary Dx) Social History Tobacco Use Types Packs/Day Years Used Date Smoking Tobacco: Former Cigarettes 1991 Smokeless Tobacco: Never Alcohol Use Standard Drinks/Week Comments Never 0 (1 standard drink = 0.6 oz pur e alcohol) Utilities Answer Date Recorded In the past 12 months has [employer], gas, oil, or water [employer] threatened to shut off services in your [...] place to sleep or slept in a senior care (including now)? No 12/24/2023 Housing Stability Vital Sign Answer Ethan e Recorded Unable to Pay for Housing in the Last Year Not o n file 03/01/2025 Number of Times Moved in the Last Year Not on fi le 03/01/2025 At any time in the past 12 m [facility], were you homeless or living in a senior care (including now)? No 03/01/2025 Comments No Sex [...] Bronson Wilkins RN documented in this encounter Plan of Treatment Upcoming Encounters Date Type Department Care Team (Late st Contact Info) Description 07/10/2025 11:59 PM EDT Anesthesia Event [facility] [address] [place] [phone] Claudia Bell MD [address] [place] [address], [address] [place] [address] 07/19/2025 1:30 PM EDT Lab [facility] Hematology/Oncology Clinic [address] [place] [phone] 07/19/2025 2:00 PM EDT Office Visit [facility] [address] [place] [phone] Kartik Fields MD 800 [place] [address] 07/19/2025 2:00 PM EDT Office Visit [facility] Division of Palliative Care 800 [facility] [address] [place] [phone] Sigrid Gaston MD 800 [facility] Rehab 3 [place] [address] 07/19/2025 3:00 PM EDT Office Visit [facility] 800 [facility] [address] [place] [address] Andrew Kebede MD [address] [place] [address] 07/25/2025 11:00 AM EDT Appointment [facility] [address] [place] [phone] 08/13/2025 3:15 PM EST Appointment [facility] Radiation Oncology 800 [facility] [place] [address] Luis Angel Reid MD 800 [facility] [address] [place] [address] documented as of this encounter Visit Diagnoses Diagnosis Carcinoma of breast metastatic to bone, unspecified laterality- Primary documented in this encounter Care Teams Harnessmaker Apprentice Relationship Specialty Start Date End Date Andrew Kebede MD [address] [place] [address] PCP - General 11/14/21 Andrew Kebede MD [address] [place] [address] 11/14/21 documented as of this encounter
--- OUTSIDE RECORDS SUMMARY | 2025-07-13 23:03 | XMS_ITS | Encounter Summary ---
Author Organization [facility] Address [address] [place] [address] Phone Care Team Providers Care Chief Administrative Officer Name Role Phone Andrew Kebede MD Primary Care Provider [phone] Shaq Wolff MD Unavailable [phone] Mariel Pollard Unavailable [phone] Encounter Details Date Type Department Care Team (Late st Contact Info) Description 04/17/2016 Ancillary Orders [facility] General Surgery [address] [place] [address] Medical Office Building; [address] [place] [address] Apolonia Miller MD [address] [place] [address] [email or web address] Social History Tobacco Use Types Packs/Day Years Used Date Smoking Tobacco: Former Cigarettes 0.3 20 Smokeless Tobacco: Never Alcohol Use Standard Drinks/Week Comments No 0 (1 standard drink = 0.6 oz pur e alcohol) Comments Unknown Sex and Gender Information Value [...] documented as of this encounter Care Teams Chief Administrative Officer Relationship Specialty Start Date End Date Andrew Kebede MD [address] [place] [address] [address] [place] [address] [email or web address] PCP - General Internal Medicine 12/12/15 Shaq Wolff MD [address] [place] [address] Primary Oncologist Medical Oncology 06/24/23 Mariel Pollard FNP [address] [place] [address] Nurse Practitioner Medical Oncology 11/01/23 05/01/25 documented as of this encounter Additional Source Comments The information contained in this document represents components of the legal health record. It is not the complete legal health record.[facility]
--- OUTSIDE RECORDS SUMMARY | 2025-07-13 23:03 | XMS_ITS | Encounter Summary ---
Author Organization [facility] Address [address] [place] [address] Care Team Providers Care Termite Exterminator Helper Name Role Phone Andrew Kebede MD Primary Care Provider [phone] Andrew Kebede MD Unavailable PortiaCarina Colunga RN Unavailable Unavailable Reason for Visit * Reason Onset Date Comments Med Refill 02/06/2024 Encounter Details Date Type Department Care Team (Late st Contact Info) Description 02/06/2024 Refill [facility] 800 [facility] [address] [place] [address] Andrew Kebede MD [address] [place] [address] Post herpetic neuralgia Social History Tobacco Use [...] place to sleep or slept in a assisted (including now)? No 12/24/2023 Comments No Sex [...] Description 07/10/2025 11:59 PM EDT Anesthesia Event [facility] 800 [place] [address] Claudia Bell MD [address] [facility] [address] [place] [address] 07/19/2025 1:30 PM EDT Lab [facility] Hematology/Oncology Clinic [address] [place] [phone] 07/19/2025 2:00 PM EDT Office Visit [facility] Breast [facility] Center [address] [place] [phone] Kartik Fields MD 800 [place] [address] 07/19/2025 2:00 PM EDT Office Visit [facility] Division of Palliative Care 800 [facility] [address] [place] [address] Sigrid Gaston MD 800 [facility] Rehab 3 [place] [address] 07/19/2025 3:00 PM EDT Office Visit [facility] 800 [facility] 1 [place] [address] Andrew Kebede MD [address] [place] [address] 07/25/2025 11:00 AM EDT Appointment [facility] [address] [place] [address] 08/13/2025 3:15 PM EST Appointment [facility] Radiation Oncology 800 [facility] [place] [address] Luis Angel Reid MD 800 [facility] [address] [place] [address] documented as of this encounter Visit Diagnoses Diagnosis Post herpetic neuralgia Herpes zoster with other nervous system complications documented in this encounter Additional Health Concerns Infection Onset Date Last Indicated Resolved Time COVID-19 Rule-Out 01/14/2025 01/14/2025 01/14/2025 10:10 PM EDT documented as of this encounter Care Teams Termite Exterminator Helper Relationship Specialty Start Date End Date Andrew Kebede MD [address] [place] [address] PCP - General 11/14/21 Andrew Kebede MD [address] [place] [address] 11/14/21 Carina Pearce, hides and skins colorerMechanical Developer Prover 03/19/25 04/25/25 documented as of this encounter
--- OUTSIDE RECORDS SUMMARY | 2025-07-13 23:03 | XMS_ITS | Encounter Summary ---
Author Organization [facility] Address [address] [place] [address] Care Team Providers Care Rotary Driller Name Role Phone Andrew Kebede MD Primary Care Provider [phone] Andrew Kebede MD Unavailable PortiaCarina Colunga RN Unavailable Unavailable Reason for Visit * Reason Onset Date Comments Med Refill 02/28/2024 Encounter Details Date Type Department Care Team (Late st Contact Info) Description 02/28/2024 Refill [facility] [address] [facility] [address] [place] [address] Andrew Kebede MD [address] [place] [address] Post herpetic neuralgia Social History [...] in a half-way (including now)? No 12/24/2023 Comments No Sex [...] Description 07/10/2025 11:59 PM EDT Anesthesia Event [facility] 800 [place] [address] Claudia Bell MD 690 [facility] [address] [place] [address] 07/19/2025 1:30 PM EDT Lab [facility] Hematology/Oncology Clinic [address] [place] [phone] 07/19/2025 2:00 PM EDT Office Visit [facility] Breast Health Center [address] [place] [phone] Kartik Fields MD 800 [place] [address] 07/19/2025 2:00 PM EDT Office Visit [facility] Division of Palliative Care [address] [facility] [address] [place] [address] Sigrid Gaston MD [address] [facility] Rehab 3 [place] [address] 07/19/2025 3:00 PM EDT Office Visit [facility] 800 [facility] 1 [place] [address] Andrew Kebede MD [address] [place] [address] 07/25/2025 11:00 AM EDT Appointment [facility] 800 [place] [address] 08/13/2025 3:15 PM EST Appointment [facility] Radiation Oncology 800 [facility] [place] [address] Luis Angel Reid MD 800 [facility] [address] [place] [address] documented as of this encounter Visit Diagnoses Diagnosis Post herpetic neuralgia Herpes zoster with other nervous system complications documented in this encounter Additional Health Concerns Infection Onset Date Last Indicated Resolved Time COVID-19 Rule-Out 01/14/2025 01/14/2025 01/14/2025 10:10 PM EDT documented as of this encounter Care Teams Rotary Driller Relationship Specialty Start Date End Date Andrew Kebede MD [address] [place] [address] PCP - General 11/14/21 Andrew Kebede MD [address] [place] [address] 11/14/21 Carina Pearce, aluminum pourerHand Rug Cleaner 03/19/25 04/25/25 documented as of this encounter
--- OUTSIDE RECORDS SUMMARY | 2025-07-13 23:03 | XMS_ITS | Patient Health Record ---
Author Organization [facility] Address [address] [place] [address] Care Team Providers Care Activity Therapist Name Role Phone OUTSIDE, PROVIDER Primary Care Provider Sukhjinder Chavez Unavailable [phone] Reason For Referral No Information Social History Tobacco Use: Social History Observation Description Date Details (start date - stop date) Never Smoker NA - NA ZDonbaosmino, smoking (DO NOT USE) Question Answer Notes Are you a: nonsmoker Plan Of Treatment No Information Insurance Providers Payer Name Payer Address Payer Phone Subscriber Number Group Number Insured Name Patient Relationship to Insured Coverage Start Date Coverage End Date MEDICARE [id number] [employer] [address] [place] [address] [id number] DELANEY COREY Self - patient is the insured 4 Medical (General) History Surgical History Surgery Date(Month/Year) hysterectomy
--- OUTSIDE RECORDS SUMMARY | 2025-07-13 23:03 | XMS_ITS | Encounter Summary ---
Author Organization [facility] Address [address] [place] [address] Care Team Providers Care Manager Family Name Role Phone Andrew Kebede MD Primary Care Provider [phone] Andrew Kebede MD Unavailable PortiaCarina Colunga RN Unavailable Unavailable Reason for Visit * Reason Onset Date Comments Med Refill 02/04/2024 Encounter Details Date Type Department Care Team (Late st Contact Info) Description 02/04/2024 Refill [facility] 800 [facility] [address] [place] [address] Andrew Kebede MD [address] [place] [address] Post herpetic neuralgia Social History [...] place to sleep or slept in a residential (including now)? No 12/24/2023 Comments No Sex [...] Description 07/10/2025 11:59 PM EDT Anesthesia Event [facility] 800 [place] [address] Claudia Bell MD [address] [facility] [address] [place] [address] 07/19/2025 1:30 PM EDT Lab [facility] Hematology/Oncology Clinic [address] [place] [phone] 07/19/2025 2:00 PM EDT Office Visit [facility] Breast Health Center [address] [place] [phone] Kartik Fields MD 800 [place] [address] 07/19/2025 2:00 PM EDT Office Visit [facility] Division of Palliative Care 800 [facility] [address] [place] [address] Sigrid Gaston MD 800 [facility] Rehab 3 [place] [address] 07/19/2025 3:00 PM EDT Office Visit [facility] 800 [facility] 1 [place] [address] Andrew Kebede MD [address] [place] [address] 07/25/2025 11:00 AM EDT Appointment [facility] 800 [place] [address] 08/13/2025 3:15 PM EST Appointment [facility] Radiation Oncology 800 [facility] [place] [address] Luis Angel Reid MD 800 [facility] [address] [place] [address] documented as of this encounter Visit Diagnoses Diagnosis Post herpetic neuralgia Herpes zoster with other nervous system complications documented in this encounter Additional Health Concerns Infection Onset Date Last Indicated Resolved Time COVID-19 Rule-Out 01/14/2025 01/14/2025 01/14/2025 10:10 PM EDT documented as of this encounter Care Teams Manager Family Relationship Specialty Start Date End Date Andrew Kebede MD [address] [place] [address] PCP - General 11/14/21 Andrew Kebede MD [address] [place] [address] 11/14/21 Carina Pearce, plant operations vice presidentCuring Press Maintainer 03/19/25 04/25/25 documented as of this encounter
--- OUTSIDE RECORDS SUMMARY | 2025-07-13 23:03 | XMS_ITS | Encounter Summary ---
Author Organization [facility] Address [address] [facility] [address] [place] [address] Phone Care Team Providers Care Venetian Blind Maker Name Role Phone Andrew Kebede MD Primary Care Provider [phone] Shaq Wolff MD Unavailable Mariel Pollard Unavailable Encounter Details Date Type Department Care Team (Late st Contact Info) Description 01/20/2022 Procedure Pass [facility] MRI, [place] [address] [facility], 2nd [place] [address] Social History Tobacco Use Types Packs/Day Years Used Date Smoking Tobacco: Former Cigarettes 0.3 20 Smokeless Tobacco: Never Alcohol Use Standard Drinks/Week Comments No 0 (1 standard drink = 0.6 oz pur e alcohol) Comments No Sex and Gender Information Value [...] documented as of this encounter Care Teams Venetian Blind Maker Relationship Specialty Start Date End Date Andrew Kebede MD [address] [place] [address] [address] [place] [address] [email or web address] PCP - General Internal Medicine 12/12/15 Shaq Wolff MD [address] [place] [address] Primary Oncologist Medical Oncology 06/24/23 Mariel Pollard FNP [address] [place] [address] Nurse Practitioner Medical Oncology 11/01/23 05/01/25 documented as of this encounter Additional Source Comments The information contained in this document represents components of the legal health record. It is not the complete legal health record.[facility]
--- OUTSIDE RECORDS SUMMARY | 2025-07-13 23:03 | XMS_ITS | Encounter Summary ---
Author Organization [facility] Address [address] [facility] [address] [place] [address] Phone Care Team Providers Care Supply Chain Consultant Name Role Phone Andrew Kebede MD Primary Care Provider [phone] Shaq Wolff MD Unavailable [phone] Mariel Pollard Unavailable [phone] Encounter Details Date Type Department Care Team (Late st Contact Info) Description 02/20/2022 Procedure Pass [facility] PERIOPERATIVE DEPT [address] [place] [phone] Social History Tobacco Use Types Packs/Day Years [...] documented as of this encounter Care Teams Supply Chain Consultant Relationship Specialty Start Date End Date Andrew Kebede MD [address] [place] [address] [address] [place] [address] [email or web address] PCP - General Internal Medicine 12/12/15 Shaq Wolff MD [address] [place] [address] [email or web address] Primary Oncologist Medical Oncology 06/24/23 Mariel Pollard FNP [address] [place] [address] [email or web address] Nurse Practitioner Medical Oncology 11/01/23 05/01/25 documented as of this encounter Additional Source Comments The information contained in this document represents components of the legal health record. It is not the complete legal health record.[facility]
--- OUTSIDE RECORDS SUMMARY | 2025-07-13 23:03 | XMS_ITS | Encounter Summary ---
Author Organization [facility] Address [address] [place] [address] Phone Care Team Providers Care Segmental Paving Supervisor Name Role Phone Andrew Kebede MD Primary Care Provider [phone] Shaq Wolff MD Unavailable [phone] Mariel Pollard Unavailable [phone] Encounter Details Date Type Department Care Team (Latest Contact Info) Description 03/23/2016 Transcribe Orders [facility] [address] [place] [address] Apolonia Miller MD [address] [place] [address] [email or web address] Preoperative examination, unspecified (Primary Dx) Social History Tobacco Use Types Packs/Day Years Used Date Smoking Tobacco: Former Cigarettes Smokeless Tobacco: Never Alcohol Use Standard Drinks/Week [...] BPM [facility] Atrial Rate 59 BPM [facility] NE Interval 136 ms [facility] QRS Duration 80 ms [facility] QT Interval 430 ms [facility] QTC Interval 425 ms [facility] P [place] 61 degrees [facility] R Wave [place] 4 degrees [facility] T Wave [place] 4 degrees [facility] 03/23/2016 11:1 5 AM EDT 03/24/2016 7:32 AM EDT Narrative [facility] - 03/24/2016 7:32 AM EDT SINUS BRADYCARDIA NONSPECIFIC T WAVE ABNORMALITIES ABNORMAL ECG Electronically Signed in [facility] system. Confirmed by Stephanie Castaneda, Irma ([id number]), make up editor DEIDRA SEVILLA ([id number]) on 03/24/2016 7:32:25 AM us Apolonia Miller MD ECG ORDERABLES Final Re sult [facility] documented in this encounter Visit Diagnoses Diagnosis Preoperative examination, unspecified- Primary documented in this encounter Additional Health Concerns Infection Onset Date Last Indicated Resolved Time CoV-Risk 11/22/2023 11/22/2023 11/22/2023 2:27 PM EST COVID-19 11/22/2023 11/28/2023 12/19/2023 1:21 AM EST documented as of this encounter Care Teams Segmental Paving Supervisor Relationship Specialty Start Date End Date Andrew Kebede MD [address] [place] [address] [address] [place] [address] [email or web address] PCP - General Internal Medicine 12/12/15 Shaq Wolff MD [address] [place] [address] Primary Oncologist Medical Oncology 06/24/23 Mariel Pollard FNP [address] [place] [address] [email or web address] Nurse Practitioner Medical Oncology 11/01/23 05/01/25 documented as of this encounter Additional Source Comments The information contained in this document represents components of the legal health record. It is not the complete legal health record.[facility]
--- OUTSIDE RECORDS SUMMARY | 2025-07-13 23:03 | XMS_ITS | Encounter Summary ---
Author Organization [facility] Address [address] [place] [address] Care Team Providers Care Bulk Sealer Operator Name Role Phone Andrew Kebede MD Primary Care Provider [phone] Andrew Kebede MD Unavailable Encounter Details Date Type Department Care Team (Late st Contact Info) Description 07/10/2025 Telephone [facility] Interventional Radiology [address] [place] [address] Lazarus Jiang, BERT Social History Tobacco Use Types Packs/Day Years Used Date Smoking Tobacco: Former Cigarettes 1991 Smokeless Tobacco: Never Alcohol Use Standard Drinks/Week Comments Never 0 (1 standard drink = 0.6 oz pur e alcohol) Utilities Answer Date Recorded In the past 12 months has e electric, gas, oil, or water company threatened to shut off services in your [...] place to sleep or slept in a nursing home (including now)? No 12/24/2023 Housing Stability Vital Sign Answer Ethan e Recorded Unable to Pay for Housing in the Last Year Not o n file 03/01/2025 Number of Times Moved in the Last Year Not on fi le 03/01/2025 At any time in the past 12 m [facility], were you homeless or living in a nursing home (including now)? No 03/01/2025 Comments No [...] Assessment Author No 01/15/2025 1:00 AM EDT Baltaduon yte, Gabija, RN * Because of a physical, mental, [...] 1:00 AM EDT Bronson Wilkins, RN documented in this encounter Plan of Treatment Upcoming Encounters Date Type Department Care Team (Late st Contact Info) Description 07/10/2025 11:59 PM EDT Anesthesia Event [facility] Imaging [address] [place] [address] Claudia Bell MD [address] [place] [address], [address] [place] [address] 07/19/2025 1:30 PM EDT Lab [facility] Hematology/Oncology Clinic [address] [place] [phone] 07/19/2025 2:00 PM EDT Office Visit [facility] Breast Health Center [address] [place] [phone] Kartik Fields MD [address] [place] [address] 07/19/2025 2:00 PM EDT Office Visit [facility] Division of Palliative Care [address] [facility] [address] [place] [address] Sigrid Gaston MD [address] [facility] Rehab 3 [place] [address] 07/19/2025 3:00 PM EDT Office Visit [facility] [address] [facility] [address] [place] [phone] Andrew Kebede MD [address] [place] [address] 07/25/2025 11:00 AM EDT Appointment [facility] Imaging [address] [place] [address] 08/13/2025 3:15 PM EST Appointment [facility] Radiation Oncology [address] [facility] [place] [address] Luis Angel Reid MD [address] [facility] [address] [place] [address] documented as of this encounter Goals Goal Patient Goal Type Associated Problems Recent Progress Patient-Stated? Author Autogenerat ed Goal Care Plan Autogenerated Problem No Nirav Miguel DO documented as of this encounter Visit Diagnoses Not on filedocumented in this encounter Additional Health Concerns Active Problems Noted Date Diagnosed Date Autogenerated Problem 06/29/2025 documented as of this encounter Care Teams Bulk Sealer Operator Relationship Specialty Start Date End Date Andrew Kebede MD [address] [place] [address] PCP - General 11/14/21 Andrew Kebede MD [address] [place] [phone] 11/14/21 documented as of this encounter
--- OUTSIDE RECORDS SUMMARY | 2025-07-13 23:03 | XMS_ITS | Encounter Summary ---
Author Organization [facility] Address [address] [place] [address] Phone Care Team Providers Care Building Service Worker Name Role Phone Andrew Kebede MD Primary Care Provider [phone] Shaq Wolff MD Unavailable [phone] Mariel Pollard Unavailable [phone] Encounter Details Date Type Department Care Team (Late st Contact Info) Description 04/17/2016 Ancillary Orders [facility] General Surgery [address] [place] [address] Medical Office Building; [address] [place] [address] Apolonia Miller MD [address] [place] [address] [email or web address] Social History Tobacco Use Types Packs/Day Years [...] documented as of this encounter Care Teams Building Service Worker Relationship Specialty Start Date End Date Andrew Kebede MD [address] [place] [address] [address] [place] [address] [email or web address] PCP - General Internal Medicine 12/12/15 Shaq Wolff MD [address] [place] [address] Primary Oncologist Medical Oncology 06/24/23 Mariel Pollard FNP [address] [place] [address] Nurse Practitioner Medical Oncology 11/01/23 05/01/25 documented as of this encounter Additional Source Comments The information contained in this document represents components of the legal health record. It is not the complete legal health record.[facility]
--- OUTSIDE RECORDS SUMMARY | 2025-07-13 23:03 | XMS_ITS | Encounter Summary ---
Author Organization [facility] Address [address] [place] [address] Care Team Providers Care V Belt Finisher Name Role Phone Andrew Kebede MD Primary Care Provider [phone] Andrew Kebede MD Unavailable PortiaCarina Colunga RN Unavailable Unavailable Encounter Details Date Type Department Care Team (Late st Contact Info) Description 02/24/2024 Refill [facility] [address] [place] [address] Andrew Kebede MD [address] [place] [address] Anxiety Social History Tobacco Use Types Packs/Day Years [...] to sleep or slept in a senior living (including now)? No 12/24/2023 Comments No Sex and Gender Information Value Date Recorded Sex Assigned at Female 12/24/2023 4:34 PM EDT Legal Sex Female 12:46 AM EST Gender Identity Female 12/24/2023 4:34 PM EDT Sexual Orientation Straight 12/24/2023 4: 34 PM EDT documented as of this encounter Miscellaneous Notes * Telephone Encounter - Andrew Kebede MD - 02/24/2024 4:44 PM EDT Try 3 documented in this encounter Plan of Treatment Upcoming Encounters Date Type Department Care Team (Late st Contact Info) Description 07/10/2025 11:59 PM EDT Anesthesia Event [facility] Imaging [address] [place] [address] Claudia Bell MD [address] [facility], [address] [place] [address] 07/19/2025 1:30 PM EDT Lab [facility] Hematology/Oncology Clinic [address] [place] [address] 07/19/2025 2:00 PM EDT Office Visit [facility] Breast Health Center [address] [place] [address] Kartik Fields MD [address] [place] [address] 07/19/2025 2:00 PM EDT Office Visit [facility] Division of Palliative Care [address] [facility] [address] [place] [phone] Sigrid Gaston MD [address] [facility] 3 [place] [address] 07/19/2025 3:00 PM EDT Office Visit [facility] [address] [facility] [address] [place] [phone] Andrew Kebede MD [address] [place] [address] 07/25/2025 11:00 AM EDT Appointment [facility] Imaging [address] [place] [address] 08/13/2025 3:15 PM EST Appointment [facility] Radiation Oncology [address] [facility] [place] [phone] Luis Angel Reid MD [address] [facility] [place] [address] documented as of this encounter Visit Diagnoses Diagnosis Anxiety Anxiety state, unspecified documented in this encounter Additional Health Concerns Infection Onset Date Last Indicated Resolved Time COVID-19 Rule-Out 01/14/2025 01/14/2025 01/14/2025 10:10 PM EDT documented as of this encounter Care Teams V Belt Finisher Relationship Specialty Start Date End Date Andrew Kebede MD [address] [place] [address] PCP - General 11/14/21 Andrew Kebede MD [address] [place] [phone] 11/14/21 Portia, Carina, knucklerAmbulatory Nurse 03/19/25 04/25/25 documented as of this encounter
--- OUTSIDE RECORDS SUMMARY | 2025-07-13 23:03 | XMS_ITS | Encounter Summary ---
Author Organization [facility] Address [address] [place] [address] Phone Care Team Providers Care Network Desktop Support Specialist Name Role Phone Andrew Kebede MD Primary Care Provider [phone] Shaq Wolff MD Unavailable [phone] Mariel Pollard Unavailable [phone] Encounter Details Date Type Department Care Team (Late st Contact Info) Description 06/03/2018 Ancillary Orders Virtual Department [address] [place] [address] Andrew Kebede MD [address] [place] [address] [place] [address] [email or web address] Dysuria; Urinary incontinence, unspecified type Social History Tobacco Use Types [...] documented as of this encounter Results * US Bladder (06/03/2018 4:08 PM EDT) Anatomical Region Laterality Modality Abdomen, Kidney Ultrasound 06/03/2018 4:13 PM EDT Impressions 06/03/2018 4:14 PM EDT Postvoid residual of 70 cc or 32%. POS [id number] Narrative 06/03/2018 4:14 PM EDT COMPARISON: None FINDINGS: Bladder: Pre-void volume is 220 cc with a 70 cc or 32% post-void residual. No bladder stone or mass is detected. Ureteral jets are documented bilaterally. Procedure Note Maribell Prieto MD - 06/03/2018 COMPARISON: None FINDINGS: Bladder: Pre-void volume is 220 cc with a 70 cc or 32% post-void residual.No bladder stone or mass is detected. Ureteral jets are documentedbilaterally. IMPRESSION: Postvoid residual of 70 cc or 32%. POS [id number] Andrew Kebede MD [facility] Final Res ult documented in this encounter Visit Diagnoses Diagnosis Dysuria Urinary incontinence, unspecified type Dysuria Urinary incontinence, unspecified type documented in this encounter Additional Health Concerns Infection Onset Date Last Indicated Resolved Time CoV-Risk 11/22/2023 11/22/2023 11/22/2023 2:27 PM EST COVID-19 11/22/2023 11/28/2023 12/19/2023 1:21 AM EST documented as of this encounter Care Teams Network Desktop Support Specialist Relationship Specialty Start Date End Date Andrew Kebede MD [address] [place] [address] [place] [address] [email or web address] PCP - General Internal Medicine 12/12/15 Shaq Wolff MD [address] [place] [address] [email or web address] Primary Oncologist Medical Oncology 06/24/23 Mariel Pollard FNP [address] [place] [address] [email or web address] Nurse Practitioner Medical Oncology 11/01/23 05/01/25 documented as of this encounter Additional Source Comments The information contained in this document represents components of the legal health record. It is not the complete legal health record.[facility]
--- OUTSIDE RECORDS SUMMARY | 2025-07-13 23:03 | XMS_ITS | Encounter Summary ---
Author Organization [facility] Address [address] [place] [address] Phone Care Team Providers Care Weed Control Inspector Name Role Phone Andrew Kebede MD Primary Care Provider [phone] Shaq Wolff MD Unavailable [phone] Mariel Pollard Unavailable [phone] Encounter Details Date Type Department Care Team (Late st Contact Info) Description 04/17/2016 Ancillary Orders [facility] General Surgery [address] [place] [address] Medical Office Building; [address] [place] [address] Apolonia Miller MD [address] [place] [address] [email or web address] Social History Tobacco Use Types [...] documented as of this encounter Care Teams Weed Control Inspector Relationship Specialty Start Date End Date Andrew Kebede MD [address] [place] [address] [address] [place] [address] [email or web address] PCP - General Internal Medicine 12/12/15 Shaq Wolff MD [address] [place] [address] Primary Oncologist Medical Oncology 06/24/23 Mairel Pollard FNP [address] [place] [address] Nurse Practitioner Medical Oncology 11/01/23 05/01/25 documented as of this encounter Additional Source Comments The information contained in this document represents components of the legal health record. It is not the complete legal health record.[facility]
--- OUTSIDE RECORDS SUMMARY | 2025-07-13 23:03 | XMS_ITS | Encounter Summary ---
Author Organization [facility] Address [address] [facility] [address] [place] [address] Phone Care Team Providers Care Collection Systems Consultant Name Role Phone Andrew Kebede MD Primary Care Provider [phone] Shaq Wolff MD Unavailable [phone] Mariel Pollard Unavailable [phone] Encounter Details Date Type Department Care Team (Late st Contact Info) Description 11/03/2023 Procedure Pass [facility], [address] [address] Social History Tobacco Use Types Packs/Day Years [...] documented as of this encounter Care Teams Collection Systems Consultant Relationship Specialty Start Date End Date Andrew Kebede MD [address] [place] [address] [address] [place] [address] [email or web address] PCP - General Internal Medicine 12/12/15 Shaq Wolff MD [address] [place] [address] Primary Oncologist Medical Oncology 06/24/23 Mariel Pollard FNP [address] [place] [address] Nurse Practitioner Medical Oncology 11/01/23 05/01/25 documented as of this encounter Additional Source Comments The information contained in this document represents components of the legal health record. It is not the complete legal health record.[facility]
--- OUTSIDE RECORDS SUMMARY | 2025-07-13 23:03 | XMS_ITS | Encounter Summary ---
Author Organization [facility] Address [address] [facility] [address] [place] [address] Phone Care Team Providers Care Molder Pipe Covering Name Role Phone Andrew Kebede MD Primary Care Provider [phone] Shaq Wolff MD Unavailable [phone] Mariel Pollard Unavailable Encounter Details Date Type Department Care Team (Late st Contact Info) Description 06/03/2018 Transcribe Orders [facility] Laboratory [address] [place] [address] Andrew Kebede MD [address] [place] [address] [place] [address] [email or web address] Urinary tract infection with hematuria, site unspecified (Primary Dx); Suprapubic pain Social History Tobacco Use Types Packs/Day Years [...] documented as of this encounter Results * Urine culture (06/03/2018 4:19 PM EDT) Specimen Source/ Description URINE URINE [facility] Special Requests None [facility] GRAM STAIN Few GRAM POSITIVE RODS , Rare GRAM NEGATIVE RODS [facility] Culture/Test >100,000 colony forming units per ml MIXED RENAE (3 OR MORE COLONY TYPES) Culture indicates contamination . Please resubmit if necessary. [facility] Report Status 06/04/2018 FINAL [facility] Urine (Urine) 06/03/2018 4:1 9 PM EDT 06/03/2018 4:20 PM EDT us Andrew Kebede MD MICROBIOLOGY - GENERAL OR DERABLES Final Result Performing Organization Address [facility] de Phone Number [address] [address] * (ABNORMAL) Urinalysis (06/03/2018 4:19 PM EDT) COLOR STRAW(A) Yellow [facility] CLARITY HAZY [facility] GLUCOSE Negative Negative [facility] BILI Negative Negative [facility] KETONES Negative Negative [facility] SPECIFIC GRAVITY <1.005 1.005 - 1.030 [facility] BLOOD Trace(A) Negative [facility] PH 7.0 5.0 - 8.0 [facility] Protein-UA Negative Negative [facility] NITRITE Negative Negative [facility] Leukocyte esterase, ur 1+(A) Negative [facility] Urine (Urine) 06/03/2018 4:1 9 PM EDT 06/03/2018 4:21 PM EDT us Andrew Kebede MD URINE ORDERABLES Final Re sult Performing Organization Address [facility] Co de Phone Number [address] [address] documented in this encounter Visit Diagnoses Diagnosis Urinary tract infection with hematuria, site unspecified- Primary Suprapubic pain Abdominal pain, other specified site documented in this encounter Additional Health Concerns Infection Onset Date Last Indicated Resolved Time CoV-Risk 11/22/2023 11/22/2023 11/22/2023 2:27 PM EST COVID-19 11/22/2023 11/28/2023 12/19/2023 1:21 AM EST documented as of this encounter Care Teams Molder Pipe Covering Relationship Specialty Start Date End Date Andrew Kebede MD [address] [place] [address] [address] [place] [address] [email or web address] PCP - General Internal Medicine 12/12/15 Shaq Wolff MD [address] [place] [address] Primary Oncologist Medical Oncology 06/24/23 Mariel Pollard FNP [address] [place] [address] Nurse Practitioner Medical Oncology 11/01/23 05/01/25 documented as of this encounter Additional Source Comments The information contained in this document represents components of the legal health record. It is not the complete legal health record.[facility]
--- OUTSIDE RECORDS SUMMARY | 2025-07-13 23:03 | XMS_ITS | Encounter Summary ---
Author Organization [facility] Address [address] [place] [address] Care Team Providers Care Greaser And Oiler Name Role Phone Andrew Kebede MD Primary Care Provider [phone] Andrew Kebede MD Unavailable PortiaCarina Colunga RN Unavailable Unavailable Reason for Visit * Reason Onset Date Comments Med Refill 01/24/2024 Encounter Details Date Type Department Care Team (Late st Contact Info) Description 01/24/2024 Refill [facility] [address] [facility] [address] [place] [address] Andrew Kebede MD [address] [place] [address] Post herpetic neuralgia Social History [...] in a m[facility]p (including now)? No 12/24/2023 Comments No Sex [...] Description 07/10/2025 11:59 PM EDT Anesthesia Event [facility] Imaging [address] [place] [address] Claudia Bell MD [address] [facility] [address] [place] [address] 07/19/2025 1:30 PM EDT Lab [facility] Hematology/Oncology Clinic [address] [place] [phone] 07/19/2025 2:00 PM EDT Office Visit [facility] Breast Health Center [address] [place] [phone] Kartik Fields MD [address] [place] [address] 07/19/2025 2:00 PM EDT Office Visit [facility] Division of Palliative Care [address] [facility] [address] [place] [address] Sigrid Gaston MD [address] [facility] Re[facility] 3 [place] [address] 07/19/2025 3:00 PM EDT Office Visit [facility] [address] [facility] 1 [place] [address] Andrew Kebede MD [address] [place] [address] 07/25/2025 11:00 AM EDT Appointment [facility] Imaging [address] [place] [address] 08/13/2025 3:15 PM EST Appointment [facility] Radiation Oncology [address] [facility] [place] [address] Luis Angel Reid MD [address] [facility] [address] [place] [address] documented as of this encounter Visit Diagnoses Diagnosis Post herpetic neuralgia Herpes zoster with other nervous system complications documented in this encounter Additional Health Concerns Infection Onset Date Last Indicated Resolved Time COVID-19 Rule-Out 01/14/2025 01/14/2025 01/14/2025 10:10 PM EDT documented as of this encounter Care Teams Greaser And Oiler Relationship Specialty Start Date End Date Andrew Kebede MD [address] [place] [address] PCP - General 11/14/21 Andrew Kebede MD [address] [place] [address] 11/14/21 Carina Pearce, cost coordinatorCone Chocolate Dipper 03/19/25 04/25/25 documented as of this encounter
--- OUTSIDE RECORDS SUMMARY | 2025-07-13 23:03 | XMS_ITS | Encounter Summary ---
Author Organization [facility] Address [address] [place] [address] Care Team Providers Care Strawberry Grower Name Role Phone Andrew Kebede MD Primary Care Provider [phone] Andrew Kebede MD Unavailable Encounter Details Date Type Department Care Team (Late st Contact Info) Description 07/09/2025 Telephone [facility] [address] [facility] [address] [place] [address] Andrew Kebede MD [address] [place] [address] Social History Tobacco Use Types Packs/Day Years Used Date Smoking Tobacco: Former Cigarettes 1991 Smokeless Tobacco: Never Alcohol Use Standard Drinks/Week Comments Never 0 (1 standard drink = 0.6 oz pur e alcohol) Utilities Answer Date Recorded In the past 12 months has [employer], gas, oil, or water [employer] threatened to shut off services in your [...] place to sleep or slept in a alf (including now)? No 12/24/2023 Housing Stability Vital Sign Answer Ethan e Recorded Unable to Pay for Housing in the Last Year Not o n file 03/01/2025 Number of Times Moved in the Last Year Not on fi le 03/01/2025 At any time in the past 12 m [facility], were you homeless or living in a alf (including now)? No 03/01/2025 Comments No Sex [...] AM EDT Baltaduon yte, Gabija, RN * Do you have serious difficulty dressing or bathing? Answer Date of Assessment Author No 01/15/2025 1:00 AM EDT Bronson Wilkins RN * Because of a physical, mental, or emotional condition, do you have difficulty doing errands such asvisiting the doctor's office or shopping? Answer Date of Assessment Author No 01/15/2025 1:00 AM EDT Bronson Wilkins, BERT documented as of this encounter Mental Status * Because of a physical, mental, or emotional condition, do you have serious difficulty concentrating, remembering, or making decisions? Answer Entry Date Author No 01/15/2025 1:00 AM EDT Bronson Wilkins, BERT documented in this encounter Miscellaneous Notes * Telephone Encounter - Andrew Kebede MD - 07/09/2025 9:17 AM EDT I had a long talk with Jesusita She isn't feeling well, hasn't been sleeping well. She woke up sweating today but she has not othersymptoms suggesting infection. She is almost off the Premarin- the sweating could be related to that. She feels so needs IV sedation for the vertebral biopsy but she has no one who could come with her so she would need to get admitted afterward. But she's not sure she's mentally in a state to do it I told her I would talk to Dr Fields documented in this encounter Plan of Treatment Upcoming Encounters Date Type Department Care Team (Late st Contact Info) Description 07/10/2025 11:59 PM EDT Anesthesia Event [facility] [address] [place] [address] Claudia Bell MD [address] [place] [address], [address] [place] [address] 07/19/2025 1:30 PM EDT Lab [facility] Hematology/Oncology Clinic [address] [place] [address] 07/19/2025 2:00 PM EDT Office Visit [facility] Breast Health Center [address] [place] [address] Kartik Fields MD [address] [place] [address] 07/19/2025 2:00 PM EDT Office Visit [facility] Division of Palliative Care [address] [facility] [address] [place] [address] Sigrid Gaston MD [address] [facility] [address] [place] [address] 07/19/2025 3:00 PM EDT Office Visit [facility] [address] [facility] [address] [place] [address] Andrew Kebede MD [address] [place] [phone] 07/25/2025 11:00 AM EDT Appointment [facility] Imaging [address] [place] [address] 08/13/2025 3:15 PM EST Appointment [facility] Radiation Oncology [address] [facility] [place] [address] Luis Angel Reid MD 800 [facility] [address] [place] [address] documented as of this encounter Goals Goal Patient Goal Type Associated Problems Recent Progress Patient-Stated? Author Autogenerat ed Goal Care Plan Autogenerated Problem Nirav Barrett DO documented as of this encounter Visit Diagnoses Not on filedocumented in this encounter Additional Health Concerns Active Problems Noted Date Diagnosed Date Autogenerated Problem 06/29/2025 documented as of this encounter Care Teams Strawberry Grower Relationship Specialty Start Date End Date Andrew Kebede MD [address] [place] [phone] PCP - General 11/14/21 Andrew Kebede MD [address] [place] [address] 11/14/21 documented as of this encounter
--- OUTSIDE RECORDS SUMMARY | 2025-07-13 23:03 | XMS_ITS | Encounter Summary ---
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, estrogen receptor positive, unspecified site of breast Procedures [place] OFFICE NEW 60 - 74 MIN Andrew Kebede MD [address] [place] [address] Phone: tel: fax: Kartik Fields MD [address] [place] [address] Phone: tel: fax: Referral ID Status Reason Start Date Expiration Date V isits Requested Visits Authorized [id number] Closed Specialty Services Required 06/20/2025 06/20/2026 1 1 * Consultation (Routine) - Authorized Specialty Diagnoses / Procedures Referred By Contac t Referred To Contact Radiation Oncology Diagnoses 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, estrogen receptor positive, unspecified site of breast Procedures VT OFFICE NEW 60 - 74 MIN Andrew Kebede MD [address] [place] [address] Phone: tel: fax: Luis Angel Reid MD 800 [facility] [address] [place] [address] Phone: tel: fax: Referral ID Status Reason Start Date Expiration Date V isits Requested Visits Authorized [id number] Authorized 06/20/2025 06/20/2026 1 1 Encounter Details Date Type Department Care Team (Late st Contact Info) Description 06/20/2025 Orders Only [facility] [address] [place] [address] Andrew Kebede MD [address] [place] [address] 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, estrogen receptor positive, unspecified site of breast (Multi-HCC) (Primary Dx) Social History Tobacco Use Types Packs/Day Years Used Date Smoking Tobacco: Former Cigarettes 1991 Smokeless Tobacco: Never Alcohol Use Standard Drinks/Week Comments Never 0 (1 standard drink = 0.6 oz pur e alcohol) Utilities Answer Date Recorded In the past 12 months has [employer], gas, oil, or water [employer] threatened to shut off services in your [...] any time in the past 12 m [facility], were you homeless or living in [...] Anesthesia Event [facility] [address] [place] [address] Claudia Bell MD [address] [facility], [address] [place] [address] 07/19/2025 1:30 PM EDT Lab [facility] Hematology/Oncology Clinic [address] [place] [address] 07/19/2025 2:00 PM EDT Office Visit [facility] Breast Health Center [address] [place] [address] Kartik Fields MD [address] [place] [address] 07/19/2025 2:00 PM EDT Office Visit [facility] Division of Palliative Care [address] [facility] [address] [place] [address] Sigrid Gaston MD [address] [facility] Rehab [address] [place] [address] 07/19/2025 3:00 PM EDT Office Visit [facility] [address] [facility] [address] [place] [address] Andrew Kebede MD [address] [place] [address] 07/25/2025 11:00 AM EDT Appointment [facility] Imaging [address] [place] [address] 08/13/2025 3:15 PM EST Appointment [facility] Radiation Oncology [address] [place] [address] Luis Angel Reid MD 800 [facility] [address] [place] [phone] Scheduled Referrals Name Type Priority Associated Diagnoses Orde r Schedule Ambulatory referral to Radiation Oncology Outpatient Referral Routine 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, estrogen receptor positive, unspecified site of breast (Multi-HCC) Expected: 06/20/2025 (Approximate), Expires: 06/20/2026 Ambulatory referral to Breast [facility] Outpatient Referral Routine 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
--- OUTSIDE RECORDS SUMMARY | 2025-07-13 23:03 | XMS_ITS | Encounter Summary ---
Author Organization [facility] Address [address] [place] [address] Care Team Providers Care Farm Demonstrator Name Role Phone Andrew Kebede MD Primary Care Provider [phone] Andrew Kebede MD Unavailable Encounter Details Date Type Department Care Team (Late st Contact Info) Description 06/08/2025 Refill [facility] [address] [place] [address] Andrew Kebede MD [address] [place] [address] Carcinoma of breast metastatic to bone, unspecified laterality (Multi-HCC) Social History Tobacco Use Types Packs/Day Years Used Date Smoking Tobacco: Former Cigarettes 1991 Smokeless Tobacco: Never Alcohol Use Standard Drinks/Week Comments Never 0 (1 standard drink = 0.6 oz pur e alcohol) Utilities Answer Date Recorded In the past 12 months has [employer], oil, or water [employer] threatened to shut off services in your [...] place to sleep or slept in a fdc (including now)? No 12/24/2023 Housing Stability Vital Sign Answer Ethan e Recorded Unable to Pay for Housing in the Last Year Not o n file 03/01/2025 Number of Times Moved in the Last Year Not on fi le 03/01/2025 At any time in the past 12 m [facility], were you homeless or living in a fdc (including now)? No 03/01/2025 Comments No Sex [...] Author No 01/15/2025 1:00 AM EDT Bronson Wilknis RN * Do you have serious difficulty [...] Telephone Encounter - Andrew Kebede MD - 06/08/2025 3:04 PM EDT Pulse: BP: Lungs: clear CV: no murmur rub gallop Abd: no mass tenderness organomegaly Extremities: no edema documented in this encounter Plan of Treatment Upcoming Encounters Date Type Department Care Team (Late st Contact Info) Description 07/10/2025 11:59 PM EDT Anesthesia Event [facility] [address] [place] [address] Claudia Bell MD [address] [place] [address] [address] [place] [address] 07/19/2025 1:30 PM EDT Lab [facility] Hematology/Oncology Clinic [address] [place] [phone] 07/19/2025 2:00 PM EDT Office Visit [facility] Breast Health Center [address] [place] [phone] Kartik Fields MD [address] [place] [address] 07/19/2025 2:00 PM EDT Office Visit [facility] Division of Palliative Care 800 [facility] [address] [place] [phone] Sigrid Gaston MD 800 [facility] Rehab [address] [place] [address] 07/19/2025 3:00 PM EDT Office Visit [facility] [address] [facility] 1 [place] [address] Andrew Kebede MD [address] [place] [address] 07/25/2025 11:00 AM EDT Appointment [facility] Imaging [address] [place] [phone] 08/13/2025 3:15 PM EST Appointment [facility] Radiation Oncology [address] [facility] [place] [phone] Luis Angel Reid MD 800 [facility] [address] [place] [phone] documented as of this encounter Visit Diagnoses Diagnosis Carcinoma of breast metastatic to bone, unspecified laterality documented in this encounter Care Teams Farm Demonstrator Relationship Specialty Start Date End Date Andrew Kebede MD [address] [place] [address] PCP - General 11/14/21 Andrew Kebede MD [address] [place] [address] 11/14/21 documented as of this encounter
--- OUTSIDE RECORDS SUMMARY | 2025-07-13 23:03 | XMS_ITS | Encounter Summary ---
Author Organization [facility] Address [address] [place] [address] Phone Care Team Providers Care Light Cleaner Name Role Phone Andrew Kebede MD Primary Care Provider [phone] Shaq Wolff MD Unavailable [phone] Mariel Pollard Unavailable [phone] Encounter Details Date Type Department Care Team (Latest Contact Info) Description 04/17/2016 Ancillary Orders [facility] General Surgery [address] [place] [address] Building; [address] [place] [address] Apolonia Miller MD [address] [place] [phone] [email or web address] Fecal incontinence (Primary Dx) Social History Tobacco Use Types [...] Procedure Name Priority Date/Time Associated Diagnosis Comments FL FLUORO GUIDANCE - NO CHARGE Routine 04/20/2016 9:22 AM EDT Fecal incontinence documented in this encounter Results * FL Fluoroscopy Guidance - No Charge (04/20/2016 9:22 AM EDT) 04/21/2016 5:19 AM EDT Narrative [facility] - 04/21/2016 5:19 AM EDT Dose (mGy): 0.39 Fluoro time (min): 2.2 seconds Total number of images (including fluoro stored images): 3 Procedure Note Bond Trader, Dictation - 04/21/2016 Dose (mGy): 0.39 Fluoro time (min): 2.2 seconds Total number of images (including fluoro stored images): 3 us Apolonia Miller MD IMG FL EXAMS Final Re sult [facility] [address] [address] documented in this encounter Visit Diagnoses Diagnosis Fecal incontinence- Primary Incontinence of feces documented in this encounter Additional Health Concerns Infection Onset Date Last Indicated Resolved Time CoV-Risk 11/22/2023 11/22/2023 11/22/2023 2:27 PM EST COVID-19 11/22/2023 11/28/2023 12/19/2023 1:21 AM EST documented as of this encounter Care Teams Light Cleaner Relationship Specialty Start Date End Date Andrew Kebede MD [address] [place] [address] [place] [address] [email or web address] PCP - General Internal Medicine 12/12/15 Shaq Wolff MD [address] [place] [address] [email or web address] Primary Oncologist Medical Oncology 06/24/23 Mariel Pollard FNP [address] [place] [address] Nurse Practitioner Medical Oncology 11/01/23 05/01/25 documented as of this encounter Additional Source Comments The information contained in this document represents components of the legal health record. It is not the complete legal health record.[facility]
--- OUTSIDE RECORDS SUMMARY | 2025-07-13 23:03 | XMS_ITS | Encounter Summary ---
Author Organization [facility] Address [address] [facility] [address] [place] [address] Phone Care Team Providers Care Media Developer Name Role Phone Andrew Kebede MD Primary Care Provider [phone] Shaq Wolff MD Unavailable [phone] Mariel Pollard Unavailable [phone] Encounter Details Date Type Department Care Team (Late st Contact Info) Description 02/28/2018 Transcribe Orders [facility] Laboratory [address] [place] [address] Andrew Kebede MD [address] [place] [address] [place] [phone] [email or web address] Dysuria (Primary Dx) Social History Tobacco Use Types [...] documented as of this encounter Results * (ABNORMAL) Urine culture (02/28/2018 10:12 AM EDT) Specimen Source/ Description URINE CLEAN CATCH URINE [facility] Special Requests None [facility] GRAM STAIN Many GRAM NEGATIVE RODS [facility] Culture/Test >100,000 colony forming units per ml ESCHERICHIA COLI(A) [facility] Report Status 03/02/2018 FINAL [facility] ORGANISM ESCHERICHIA COLI [facility] Urine (Urine) 02/28/2018 10: 12 AM EDT 02/28/2018 10:14 AM EDT Narrative Organism Antibiotic Method Susceptibility Escherichia coli Ampicillin [facility] METHOD 8: Susceptible Escherichia coli Amoxicillin-clavulanate [facility] METHO D 4: Susceptible Escherichia coli Ampicillin-sulbactam [facility] METHOD 4: Susceptible Escherichia coli Cefazolin [facility] METHOD <=4: Susceptible Escherichia coli Cefepime [facility] METHOD <=1: Susceptible Escherichia coli Ceftazidime [facility] METHOD <=1: Susceptible Escherichia coli Ceftriaxone [facility] METHOD <=1: Susceptible Escherichia coli Ciprofloxacin [facility] METHOD <=0.25: Susceptible Escherichia coli Extended Spectrum B-lactamase [facility] METHOD Negative Escherichia coli Gentamicin [facility] METHOD <=1: Susceptible Escherichia coli Levofloxacin [facility] METHOD <=0.12: Susceptible Escherichia coli Nitrofurantoin [facility] METHOD <=16: Susceptible Escherichia coli Piperacillin-tazobactam [facility] METHO D <=4: Susceptible Escherichia coli Trimethoprim/sulfame thoxa zole [facility] METHOD <=20: Susceptible Comment:>100,000 colony form ing units per ml ESCHERICHIA COLI us Andrew Kebede MD MICROBIOLOGY - GENERAL OR DERABLES Final Result Performing Organization Address City/State/[facility] Co de Phone Number [address] [address] * (ABNORMAL) Urinalysis with sediment (02/28/2018 10:12 AM EDT) WBC TOO NUMEROUS TO COUNT(A) NONE SEEN /hpf [facility] RBC 6-10(A) NONE SEEN /hpf [facility] URINE EPITHELIAL 11-20(A) NONE SEEN [facility] MUCUS Trace(A) NONE SEEN /hpf [facility] BACTERIA 3+(A) NONE SEEN [facility] COLOR Yellow Yellow [facility] CLARITY CLOUDY [facility] GLUCOSE Negative Negative [facility] BILI Negative Negative [facility] KETONES Negative Negative [facility] SPECIFIC GRAVITY 1.020 1.005 - 1.030 [facility] BLOOD 1+(A) Negative [facility] PH 6.0 5.0 - 8.0 [facility] Protein-UA Negative Negative [facility] NITRITE Positive(A) Negative [facility] Leukocyte esterase, ur 3+(A) Negative [facility] Urine (Urine) 02/28/2018 10: 12 AM EDT 02/28/2018 10:15 AM EDT us Andrew Kebede MD URINE ORDERABLES Final Re sult [address] [address] documented in this encounter Visit Diagnoses Diagnosis Dysuria- Primary documented in this encounter Additional Health Concerns Infection Onset Date Last Indicated Resolved Time CoV-Risk 11/22/2023 11/22/2023 11/22/2023 2:27 PM EST COVID-19 11/22/2023 11/28/2023 12/19/2023 1:21 AM EST documented as of this encounter Care Teams Media Developer Relationship Specialty Start Date End Date Andrew Kebede MD [address] [place] [address] [place] [address] [email or web address] PCP - General Internal Medicine 12/12/15 Shaq Wolff MD [address] [place] [phone] [email or web address] Primary Oncologist Medical Oncology 06/24/23 Mariel Pollard FNP [address] [place] [address] [email or web address] Nurse Practitioner Medical Oncology 11/01/23 05/01/25 documented as of this encounter Additional Source Comments The information contained in this document represents components of the legal health record. It is not the complete legal health record.[facility]
--- OUTSIDE RECORDS SUMMARY | 2025-07-13 23:03 | XMS_ITS | Encounter Summary ---
Author Organization [facility] Address [address] [place] [address] Phone Care Team Providers Care Website Admin Name Role Phone Andrew Kebede MD Primary Care Provider [phone] Shaq Wolff MD Unavailable [phone] Mariel Pollard Unavailable [phone] Encounter Details Date Type Department Care Team (Late st Contact Info) Description 04/17/2016 Ancillary Orders [facility] General Surgery [address] [place] [address] Medical Office Building; [address] [place] [address] Apolonia Miller MD [address] [place] [phone] [email or web address] Social History Tobacco Use Types [...] documented as of this encounter Care Teams Website Admin Relationship Specialty Start Date End Date Andrew Kebede MD [address] [place] [address] [address] [place] [address] [email or web address] PCP - General Internal Medicine 12/12/15 Shaq Wolff MD [address] [place] [address] Primary Oncologist Medical Oncology 06/24/23 Mariel Pollard FNP [address] [place] [address] Nurse Practitioner Medical Oncology 11/01/23 05/01/25 documented as of this encounter Additional Source Comments The information contained in this document represents components of the legal health record. It is not the complete legal health record.[facility]
--- OUTSIDE RECORDS SUMMARY | 2025-07-13 23:03 | XMS_ITS | Encounter Summary ---
Author Organization [facility] Address [address] [place] [address] Care Team Providers Care Box Fabricator Name Role Phone Andrew Kebede MD Primary Care Provider [phone] Andrew Kebede MD Unavailable PortiaCarina Colunga RN Unavailable Unavailable Encounter Details Date Type Department Care Team (Late st Contact Info) Description 12/24/2023 Ophth Exam [facility] Comprehensive Ophthalmology [address] [facility], [address]th [place] [phone] Anahi Oneil MD [address] [place] [address] Social History Tobacco Use Types Packs/Day Years [...] place to sleep or slept in a chcf (including now)? No 12/24/2023 Comments Unknown Sex and Gender Information Value Date Recorded Sex Assigned at Female 12/24/2023 4:34 PM EDT Legal Sex Female 12:46 AM EST Gender Identity Female 12/24/2023 4:34 PM EDT Sexual Orientation Straight 12/24/2023 4: 34 PM EDT documented as of this encounter Functional Status documented as of this encounter Plan of Treatment Upcoming Encounters Date Type Department Care Team (Late st Contact Info) Description 07/10/2025 11:59 PM EDT Anesthesia Event [facility] [address] [place] [phone] Claudia Bell MD [address] [place] [address] [address] [place] [address] 07/19/2025 1:30 PM EDT Lab [facility] [address] [place] [phone] 07/19/2025 2:00 PM EDT Office Visit [facility] [address] [place] [phone] Kartik Fields MD [address] [place] [address] 07/19/2025 2:00 PM EDT Office Visit [facility] Division of Palliative Care [address] [facility] [address] [place] [address] Sigrid Gaston MD [address] [facility] 3 [place] [address] 07/19/2025 3:00 PM EDT Office Visit [facility] [address] [facility] 1 [place] [address] Andrew Kebede MD [address] [place] [address] 07/25/2025 11:00 AM EDT Appointment [facility] [address] [place] [phone] 08/13/2025 3:15 PM EST Appointment [facility] Rad[facility]cology [address] [facility] [place] [phone] Luis Angel Reid MD [address] [facility] [place] [phone] documented as of this encounter Visit Diagnoses Not on filedocumented in this encounter Additional Health Concerns Infection Onset Date Last Indicated Resolved Time COVID-19 Rule-Out 01/14/2025 01/14/2025 01/14/2025 10:10 PM EDT documented as of this encounter Care Teams Box Fabricator Relationship Specialty Start Date End Date Andrew Kebede MD [address] [place] [address] PCP - General 11/14/21 Andrew Kebede MD [address] [place] [address] 11/14/21 Carina Pearce, curtain workerBed Maker 03/19/25 04/25/25 documented as of this encounter
--- OUTSIDE RECORDS SUMMARY | 2025-07-13 23:03 | XMS_ITS | Encounter Summary ---
Author Organization [facility] Address [address] [facility] [address] [place] [phone] Phone Care Team Providers Care Hydraulic Engineer Name Role Phone Andrew Kebede MD Primary Care Provider [phone] Shaq Wolff MD Unavailable Mariel Pollard Unavailable Encounter Details Date Type Department Care Team (Late st Contact Info) Description 09/06/2024 Transcribe Orders Virtual Department [address] [place] [address] Andrew Kebede MD [address] [place] [address] [place] [phone] [email or web address] Abdominal wall bulge (Primary Dx) Social History Tobacco Use Types [...] as of this encounter Results * US ABDOMEN LIMITED HERNIA (09/13/2024 11:03 AM EST) Anatomical Region Laterality Modality Abdomen Ultrasound 09/13/2024 12:3 0 PM EST Impressions 09/13/2024 12:33 PM EST 1. Negative targeted ultrasound of the area of clinical concern in the epigastric abdominal wall. Narrative 09/13/2024 12:33 PM EST US ABDOMEN LIMITED HERNIA INDICATION: Epigastric abdominal bulge. TECHNIQUE: Abdomen ultrasound limited, focused assessment of the abdominal wall. COMPARISON: CT from October 31, 2023. MRI from April 25, 2024. FINDINGS: Targeted ultrasound was performed of the area of clinical concern, as indicated by the patient, in the epigastric region. No sonographic evidence of hernia or abdominal wall mass. Procedure Note Edenilson Schillign MD - 09/13/2024 US ABDOMEN LIMITED HERNIA INDICATION: Epigastric abdominal bulge. TECHNIQUE: Abdomen ultrasound limited, focused assessment of the abdominalwall. COMPARISON: CT from October 31, 2023. MRI from April 25, 2024. FINDINGS: Targeted ultrasound was performed of the area of clinical concern, asindicated by the patient, in the epigastric region. No sonographicevidence of hernia or abdominal wall mass. IMPRESSION: 1. Negative targeted ultrasound of the area of clinical concern in theepigastric abdominal wall. us Andrew Kebede MD IMG US ABDOMEN Final Res ult documented in this encounter Visit Diagnoses Diagnosis Abdominal wall bulge- Primary Abdominal wall bulge documented in this encounter Additional Health Concerns Assessment Noted Time PHQ-2 Depression Total Score: 2 07/07/20 18 11:29 AM EDT documented as of this encounter Care Teams Hydraulic Engineer Relationship Specialty Start Date End Date Andrew Kebede MD [address] [place] [address] [address] [place] [address] [email or web address] PCP - General Internal Medicine 12/12/15 Shaq Wolff MD [address] [place] [address] Primary Oncologist Medical Oncology 06/24/23 Mraiel Pollard FNP [address] [place] [address] Nurse Practitioner Medical Oncology 11/01/23 05/01/25 documented as of this encounter Additional Source Comments The information contained in this document represents components of the legal health record. It is not the complete legal health record.[facility]
--- OUTSIDE RECORDS SUMMARY | 2025-07-13 23:04 | XMS_ITS | Clinical Summary ---
Author Organization [facility] Address [address] [place] [address] Care Team Providers Care Insole Tacker Name Role Phone Delio Andrew Mcrae Primary Care Provider [phone] Allergies Active Allergy Reactions Criticality Noted Date Comments Acetaminophen Abdominal Pain,Nausea 03/29/2022 Nitrofurantoin Monohyd/M-Cryst Other (see comments) 02/12/2016 Pulmonary fibrosis Oxycodone Headache 06/05/2022 Prednisone Other (see comments) 02/12/2016 abd tumors Sulfa (Sulfonamide Antibiotics) Itching 02/12/2016 cellulitis Medications * This document contains information received from the source organization and may not represent a complete record from that organization. Restasis 0.05 % ophthalmic emulsion 1 drop 2 times a day. 2 Active estradioL (VAGIFEM) 10 mcg tablet once a day. 2 Active FLUoxetine (PROzac) 40 mg capsule Take 60 mg by mouth daily. Active ondansetron (ZOFRAN) 8 mg tablet Take 8 mg by mouth every 8 hours as needed. 1 Active estrogens, conjugated (PREMARIN) 0.625 mg tablet Take 0.625 mg by mouth once a day. Active oxyCODONE 15 mg tablet, oral only Take 15 mg by mouth 3 times a day as needed. Active docusate sodium (COLACE) 100 mg capsule Take 1 capsule (100 mg total) by mouth 2 times a day. 60 capsule 2 Active lidocaine (LIDODERM) 5% patch APPLY 1 PATCH TOPICALLY TO THE AFFECTED AREA. 12 HOURS ON, 12 HOURS OFF. 90 patch 1 2 Active polyethylene glycol 3350 (MIRALAX) 17 gram packet Take 1 packet (17 g total) by mouth daily as needed (constipation) . Mix powder in 4 to 8 oz of water, juice, coffee, or tea daily as needed for constipation. Hospital supplied 2 Active senna (SENOKOT) 8.6 mg tablet Take 2 tablets (17.2 mg total) by mouth once a day. Hospital supplied 2 Active mirtazapine (REMERON) 7.5 mg tablet Take 1 tablet (7.5 mg total) by mouth nightly. 30 tablet 2 Active levETIRAcetam (KEPPRA) 750 mg tablet Take 1 tablet (750 mg total) by mouth 2 times a day. Hospital supplied 60 tablet 2 Active catheter 16 Fr-16 Remove hollis catheter 1 each 2 Active Active Problems Problem Noted Date Diagnosed Date Depression with anxiety 05/23/2022 Assessment & Plan (05/27/2022 5:29 PM EDT): Patient with history of depression and anxiety. Home medications: fluoxetine 60 mg daily and alprazolam 2 mg prn. Denies suicidal ideation. - psych consulted, appreciate recs: Starting Zyprexa 5 mg BID prn for agitation and anxiety - Continue home fluoxetine - Holding alprazolam in setting of AMS Housing situation unstable 05/23/2022 Assessment & Plan (05/25/2022 4:28 PM EDT): Patient with unclear housing situation and social history. She was brought in by an unidentifiable male who stated that her hollis catheter was blocked but he left before providing further history and was not able to be reached via phone. - Social work consulted Fall 05/17/2022 Assessment & Plan (05/17/2022 1:24 PM EDT): Fall - on morning of 05/17 on arrival of RN to the home, patient reported that she had taken oxycodone 15 mg at 6 am and at 8 am and Xanax at 7am. She then was showering, sat down on tub, then stood up and slipped backwards with mechanical fall and landed on bottom in tub and had minor left head strike. She was able to get up herself and had no apparent traction to hollis. She denied any non-baseline back, hip, head or head pain ( I hurt all over all the time but don't feel any different. Neurologic assessment and C-spine assessment with RN in tht home and gait assessment with RN in the home was reassuring although she had somewhat poor self-awareness regarding hollis bag location with ambulation. - Do not feel she needs imaging of head, C-spine, or any long bones at this time - Discussed shower safety - Discuss polypharmacy concern, patient categorically refused change in xanax or oxycodone at all - Will consult OT for showed/ADL review - Will message PCP on d/c UTI (urinary tract infection) 05/11/2022 Assessment & Plan (05/17/2022 1:09 PM EDT): Complicated UTI - Patient presents with dysuria found to very mild abnormal urinalysis. She started on ceftriaxone in the ED for 7 days (05/11-05/17) given patient's reports of recurrent UTIs. She does follow with Dr. Crow at [facility] in the urology clinic for interstitial cystitis and urge incontinence. She also did have urinary retention and Hollis catheter was placed on admission as described below. Patient requesting an ID consult given her recurrent UTIs. ID team recommending outpatient ID follow-up and scheduled for appt with Dr Jose Casey on 05/21. - Continue ceftriaxone 1 gm iv daily (05/11->05/17), then cefpodoxime 200 mg bid x 3 days for 10 day course per ID - D/C tomorrow after setting up urology follow-up - Will see ID on 05/21 - Will make urology appointment tomorrow for voiding trial Assessment & Plan (05/14/2022 3:11 PM EDT): Patient presents with dysuria found to very mild abnormal urinalysis. She started on ceftriaxone in the ED. Consider treating for 5 to 7 days given patient's reports of recurrent UTIs. She does follow with Dr. Crow at [facility] in the urology clinic for interstitial cystitis and urge incontinence. She also did have urinary retention and Hollis catheter was placed on admission. - Ceftriaxone 1 g IV daily - blood culture no growth, urine culture E coli -please see Dr. Crow's note from 04/21/2022 for details - Patient requesting an ID consult, given her recurrent UTI's, requested ID Eval -Follow ID recommendations - belladona suppositories prn for bladder spams Urinary retention 05/11/2022 Assessment & Plan (05/25/2022 4:41 PM EDT): Patient with chronic hollis for hx of urinary retention 2/2 interstitial cystitis diagnosed at 27 per chart review. She is followed by Dr. Crow. She has tried bladder instillation, antimuscarinic medications, InterStim placement and pelvic floor physical therapy. Of note patient was recently admitted for AMS from UTI for which she had her hollis replaced and was treated with seven day course of IV ceftriaxone followed by three day course of Cefpodoxime for a 10 day total antibiotic course. She was d/c with plan to follow up with urology for voiding trial and hollis removal. On exam there was some suprapubic tenderness and fullness. No issues with catheter per nurse. UA (-) LE and nitrites. She is scheduled for outpatient follow up with urology in September 2022 for a voiding trial and possible catheter removal. - Hollis catheter in place - Outpatient follow up with urology Assessment & Plan (05/17/2022 1:09 PM EDT): Urinary Retention - on admission in the ED, there was concern for urinary retention in setting of oxycodone use. She had hollis placed on 05/11 with 400 cc drained. She does follow with urology with Dr. Crow here at [facility] and will need follow-up in 7-10 days. - Will call tomorrow to schedule voiding trial with urology then d/c - Leg bag teaching - Continue hollis today Assessment & Plan (05/11/2022 10:48 PM EDT): Patient was found to have urinary retention and Hollis catheter was placed on admission on 05/11. She does follow with urology with Dr. Crow here at [facility]. - Continue Hollis for now consider voiding trial in 7 to 10 days. Mood disorder 05/11/2022 Assessment & Plan (05/17/2022 1:10 PM EDT): Mood Disorder - Patient has multiple mood disorders including PTSD anxiety depression she is on Xanax 2 mg tid prn as needed fluoxetine 60 mg daily. On admission she was continued on home medications. Assessment & Plan (05/14/2022 3:09 PM EDT): Patient has multiple mood disorders including PTSD anxiety depression she is on Xanax 2 mg twice daily as needed fluoxetine 60 mg daily. - Resumed Xanax low dose 1 mg prn for now given her altered mental status - Continue fluoxetine 60 mg daily Hx of seizure disorder 05/11/2022 Assessment & Plan (05/17/2022 1:10 PM EDT): Seizure Disorder - continued home Keppra 750 mg po bid Assessment & Plan (05/11/2022 10:49 PM EDT): Patient is on Keppra 750 mg twice daily. No seizure activity here. Chronic back pain 05/11/2022 Assessment & Plan (05/17/2022 1:10 PM EDT): Chronic Back Pain - She was last seen by neurosurgery April 30, 2022. She has spondylolisthesis and L4-L5 mild neuroforaminal narrowing. On admission she was on oxycodone 15 mg po tid and was started on lidocaine patch. Assessment & Plan (05/12/2022 4:48 PM EDT): Patient is chronic back pain on oxycodone 15 mg 3 times daily. She was last seen by neurosurgery April 30, 2022. She is spondylolisthesis and L4-L5 mild neuroforaminal narrowing. - Consider further right work-up with imaging pending clinical course Seizure disorder 04/25/2022 Assessment & Plan (05/28/2022 3:36 PM EDT): Patient with hx of seizure disorder currently on Keppra 750 mg PO BID. Her neurologic exam was grossly intact. Unclear whether her current presentation is a post ictal state. Past EEGs available for review lacking evidence of epileptiform activity. Keppra level mildy elevated at 56.9 but does not represent true trough as it was drawn after receiving Keppra dose. EEG normal, no lateralizing or epileptiform abnormalities. AMS is unlikely related to seizures given normal EEG and normal Keppra level per neuro. - Continue home Keppra Anxiety 03/26/2022 Assessment & Plan (03/27/2022 1:46 PM EDT): History of anxiety managed at home on 2 mg of Xanax 2 times daily as needed along with 60 mg of fluoxetine daily. Noted at admission to be very anxious and reported she has multiple stressors right now including living alone and in the middle of trying to move out of her apartment. She denied any current suicidal ideation, suicidal attempts, or homicidal ideation at presentation. -Continue home medications Assessment & Plan (03/26/2022 10:09 PM EDT): History of anxiety managed at home on 2 mg of Xanax 2 times daily as needed along with 60 mg of fluoxetine daily. On examination patient is profoundly anxious. She states she has multiple stressors right now including living alone and in the middle of trying to move out of her apartment. She states she lost her years ago from Parkinson's disease and she is still suffering from the grief of her loss. She denies any current suicidal ideation, suicidal attempts, or homicidal ideation. Plan -Continue home medications Abdominal pain 03/26/2022 Assessment & Plan (05/28/2022 3:34 PM EDT): Patient complains of vague abdominal pain on admission. She had similar complaints during her last admission and had a CT abdomen on 05/21/12 which was unremarkable. LFTs and lipase nl this admission. Unclear etiology at this time. Likely somatic given vague, diffuse presentation and negative workup thus far. - Stable - Bowel regimen prn Assessment & Plan (03/27/2022 1:44 PM EDT): Patient presenting with diffuse abdominal pain worse in the epigastric region. She states the symptoms have started over the past couple of days. She reports that she has had pancreatitis in the past associated with alcohol however reports she has not been an active drinker in some time. In addition she is chronically on oxycodone for fibromyalgia, and states her last bowel movement was 2 days prior to admission which was small. Prior her most recent bowel movement for last 1 was 2 weeks ago. She states she has intermittently taken MiraLAX but has not been compliant. History also remarkable for multiple abdominal surgeries including appendectomy, total abdominal hysterectomy, benign abdominal tumor resection, and an abdominoplasty. Aside from pain she has not had any nausea or vomiting. LFTs and lipase all unremarkable. Currently pt is denying any severe abd pain though does endorse constipation. - Bowel regimen - Monitor for worsening abdominal pain - slight adjustment to home pain management as interstitial cystitis section Assessment & Plan (03/26/2022 11:47 PM EDT): Patient presenting with diffuse abdominal pain worse in the epigastric region. She states the symptoms have started over the past couple of days. She reports that she has had pancreatitis in the past associated with alcohol however reports she has not been an active drinker in some time. In addition she is chronically on oxycodone for fibromyalgia, and states her last bowel movement was 2 days ago which was small. Prior her most recent bowel movement for last 1 was 2 weeks ago. She states she has intermittently taken MiraLAX but has not been compliant. History also remarkable for multiple abdominal surgeries including appendectomy, total abdominal hysterectomy, benign abdominal tumor resection, and an abdominoplasty. Aside from pain she has not had any nausea or vomiting. On assessment abdomen is soft, nondistended, mildly tender to light and deep palpation in all 4 quadrants worse in the epigastric region, bowel sounds active in all 4 quadrants, no rebound tenderness, guarding, or rigidity or masses. Labs remarkable for a mildly elevated lipase at 98. No leukocytosis present. No transaminitis. Denies any recent melanotic stools or bright red blood per rectum. Plan - Bowel regimen - Monitor for worsening abdominal pain Urge incontinence of urine 02/18/2022 Pelvic floor dysfunction 02/18/2022 Assessment & Plan (03/27/2022 1:45 PM EDT): Patient history of pelvic floor dysfunction managed at home on estradiol tablet 10 mcg a day along with conjugated estrogen 0.625 mg once a day. Follows with Urology as an outpatient - Vagifem nonformulary, continued Premarin Assessment & Plan (03/26/2022 10:51 PM EDT): Patient history of pelvic floor dysfunction managed at home on estradiol tablet 10 mcg a day along with conjugated estrogen 0.625 mg once a day. Follows with Urology as an outpatient Plan - Vagifem nonformulary, continued Premarin Endometriosis 02/10/2022 Interstitial cystitis 02/10/2022 Assessment & Plan (03/27/2022 1:41 PM EDT): Patient with history of interstitial cystitis followed by Urologist Dr. Crow as an outpatient. Per chart review patient recently had a urinalysis completed as an outpatient consistent with urinary tract infection. Urinalysis was repeated while in the ED remarkable for positive nitrates and leukocyte esterase for which patient was given a one-time dose of IV ceftriaxone. No leukocytosis. Patient does report that she has had increased burning and overall pain. Notably she did have a recent cystourethroscopy on 03/10 with urology and was instructed to follow-up with them as an outpatient in 3 to 4 weeks. Currently endorses continued dysuria and flank pain. Suspect possible UTI, maybe with component of pyelo however clinical suspicion for this is low given pt without fevers or leukocytosis. - Continue Ceftriaxone 1 mg q24 hours - Follow up urine culture - renal ultrasound - Reports home pain regimen is Oxy 15 mg which she typically only takes 2-3 times daily -> while inpt will increase frequency to q6hr PRN Assessment & Plan (03/26/2022 10:53 PM EDT): Patient with history of interstitial cystitis followed by Urologist Dr. Crow as an outpatient. Per chart review patient recently had a urinalysis completed as an outpatient consistent with urinary tract infection. Urinalysis was repeated while in the ED remarkable for positive nitrates and leukocyte esterase for which patient was given a one-time dose of IV ceftriaxone. No leukocytosis. Cr slightly uptrended to 1.02 from her baseline of around 0.80, received a 1L NS bolus. Patient does report that she has had increased burning and overall pain. She reports she has had kidney infections in the past and is currently c/o 'kidney pain' and flank pain but no CVA tenderness on exam. Patient did have a recent cystourethroscopy on 03/10 with urology and was instructed to follow-up with them as an outpatient in 3 to 4 weeks. Plan - Continue Ceftriaxone 1 mg q24 hours x3 doses - Follow up urine culture, trend WBC daily - VS q4 hours - Home oxycodone for pain w/ bowel regimen - Will monitor for worsening s/s of infection Fecal incontinence 04/20/2016 Crohn's disease 02/12/2016 Assessment & Plan (03/27/2022 1:44 PM EDT): Patient with history of Crohn's disease managed at home with a healthy vegetarian high-fiber diet. Patient reports that she has some abdominal pain mainly located in the epigastric region and she has noticed that her abdomen is more distended than usual. She states that she had a small bowel movement 2 days ago but reports prior to that her last bowel movement was 2 weeks ago. She is chronically on oxycodone for fibromyalgia. She states that she has taken MiraLAX for constipation in the past but has not been recently compliant. On assessment, abdomen soft nondistended mildly tender to light and deep palpation, no rebound tenderness guarding or rigidity or any masses present. Patient denies any recent melanotic stools or bright red blood per rectum. Not considered to be in acute flare at this time. - Continue cardiac, vegetarian diet - Bowel regimen Assessment & Plan (03/26/2022 10:50 PM EDT): Patient with history of Crohn's disease managed at home with a healthy vegetarian high-fiber diet. Patient reports that she has some abdominal pain mainly located in the epigastric region and she has noticed that her abdomen is more distended than usual. She states that she had a small bowel movement 2 days ago but reports prior to that her last bowel movement was 2 weeks ago. She is chronically on oxycodone for fibromyalgia. She states that she has taken MiraLAX for constipation in the past but has not been recently compliant. On assessment, abdomen soft nondistended mildly tender to light and deep palpation, no rebound tenderness guarding or rigidity or any masses present. Patient denies any recent melanotic stools or bright red blood per rectum. Plan - Continue cardiac, vegetarian diet - Bowel regimen Fibromyalgia 02/12/2016 Assessment & Plan (03/27/2022 1:45 PM EDT): History of fibromyalgia at home managed with oxycodone 15 mg as needed 3 times daily. -increase frequency of home oxycodone while inpt given acute on chronic pain Assessment & Plan (03/26/2022 10:03 PM EDT): History of fibromyalgia at home managed with oxycodone 15 mg as needed 3 times daily. Plan -Continue home oxycodone with bowel regimen in place Sciatica 02/12/2016 Overview (02/10/2022): With herniated discs Resolved Problems Problem Noted Date Diagnosed Date Resolved Date Decreased activities of daily living (ADL) 05/29/2022 05/29/2022 Gait instability 05/29/2022 05/29/2022 Impaired mobility and ADLs 05/27/2022 0 05/29/2022 Opioid withdrawal 05/26/2022 05/29/2022 Assessment & Plan (05/27/2022 5:30 PM EDT): Patient with history of fibromyalgia on opioids. Home oxycodone dose reduced to 5 mg on admission in the setting of AMS. Patient began to exhibit symptoms of opoid withdrawal including nausea, vomiting, diarrhea, and diffuse myalgias so increased oxycodone back to home dose. - Continue Oxycodone 10 mg q6h prn for breakthrough pain Altered mental status 05/23/20222021 Assessment & Plan (05/28/2022 3:37 PM EDT): 80 y/o female with PMH TBI, seizures, chronic hollis catheter, fibromyalgia on Alprazolam 2 mg and Oxycodone 15 mg, depression, anxiety, and somatic symptom disorder who p/w AMS. Patient unable to provide history 2/2 to AMS so history obtained through chart review. In the ED patient afebrile, HDS. BMP and CBC normal. Lipase 128. LFTs ok. WBC 4.9K. CTH negative. Chest x-ray negative. UA (-) nitrates and LE. TSH and lactate WNL. UTox consistent with home medications. EEG normal, no lateralizing or epileptiform abnormalities. Blood cultures NGTD. Ddx includes polypharmacy vs toxic vs infectious vs metabolic encephalopathy. Mental status is largely improved other than psychiatric component. Suspected cause of AMS was likely polypharmacy & underlying psychiatric disordergiven her negative neurologic, infectious, and metabolic workup thus far. - Neurology following, appreciate recs - Psychiatry following, appreciate recs - Thiamine supplementation - Hold home alprazolam - Oxy 10 mg q6h prn Confusion 05/23/2022 05/29/2022 Acute metabolic encephalopathy 05/12/2022 05/17/2022 Assessment & Plan (05/15/2022 1:37 PM EDT): 72-year-old lady with multiple psychiatric issues including PTSD anxiety depression presents with multiple complaints and reports of feeling off. Of note she is followed by elder services. She is alert and oriented x3 but is a little bit slow to respond. Unclear if this is baseline. She did have a CT head without contrast which was essentially normal outside of chronic small vessel ischemic changes. She did have a mildly abnormal urinalysis with symptoms so we will treat for UTI. - Treat for UTI - Mental status back to baseline. - Follow-up with PT consultation. - Polypharmacy likely contributing factor. Per [facility], chronic use of oxycodone and alprazolam both taking up to 3-4 times daily. Due to concern for possible withdrawal, will resume both agent at lower dose. We will give decreased dose of oxycodone and alprazolam Acute encephalopathy 05/11/2022 022 Assessment & Plan (05/14/2022 3:09 PM EDT): 72-year-old lady with multiple psychiatric issues including PTSD anxiety depression presents with multiple complaints and reports of feeling off. Of note she is followed by elder services. She is alert and oriented x3 but is a little bit slow to respond. Unclear if this is baseline. She did have a CT head without contrast which was essentially normal outside of chronic small vessel ischemic changes. She did have a mildly abnormal urinalysis with symptoms so we will treat for UTI. - Treat for UTI - Mental status back to baseline. Follow-up with PT consultation. - Polypharmacy likely contributing factor. Per [facility], chronic use of oxycodone and alprazolam both taking up to 3-4 times daily. Due to concern for possible withdrawal, will resume both agent at lower dose. We will give decreased dose of oxycodone and alprazolam - improved mental status Altered mental status 04/23/20222021 Assessment & Plan (05/17/2022 11:49 AM EDT): Multifactorial Altered Mental Status - on presentation to the ED she reported having UTI for l ast four years and was reporting urinary symptom compatible with UTI with lower abdominal/suprapubic pain. In the ED, P 70, BP 148/81, RR 15, sp02 96% on room air, temp 95.5. Exam unremarkable. BMP with K 3.3, BUN/Cr 17/0.8, LFTs wnl. Troponin <assay. CBC with wbc 6.5, hb 12.7, hct 36.7, TSH 5.8, free T4 0.8. Her urinalysis was very mildly abnormal (1+ blood, +nitrites, trace LE, 2 wbc, occasional bacteria) but patient did report dysuria and lower abdominal pain. She had blood and urine culture sent in the ER and COVID test was negative. CXR wnl. CT head was wnl. Blood cultures ultimately were NGTD. Urine cultures ultimately grew ortiz-susceptible E. coli. There was concern for contribution to AMS from UTI, urinary retention and polypharmacy described below (oxycodone and alprazolam) and she was treated with seven day course of IV ceftriaxone and prn alprazolam (05/11-05/17) followed by three day course of cefpodixime. Unfortunately on morning of 05/17 patient reported she took alprazolam 2 mg x1 and oxycodone 15 mg x1 then x1 2 hours later due to pain - Continue to trend daily mental status - Continue ceftriaxone 1 gm iv daily (05/11->05/17), then cefpodoxime 200 mg bid x 3 days for 10 day course per ID - Continue to emphasize importance of limiting polyphrmacy - Continue to strongly emphasize using oxycodone as prescirbed (q8hr) and not more often - Continue to strongly emphasize using alprazolam as prescribed (q8hr) and not more often - Will need urology follow-up for voiding trial Generalized weakness 03/29/2022 022 Chest pain 03/26/2022 05/29/2022 Assessment & Plan (05/28/2022 3:34 PM EDT): Patient complains of vague chest and breast pain. Tropes nl. CXR clear. On exam she has diffuse chest pain reproducible to palpation. Likely somatic given vague, diffuse presentation vs musculoskeletal given reproducibility on exam. ACS unlikely given negative tropes and lack of cardiac history. Of note, she has a history of breast implant rupture. Stable. - EKG non-ischemic - Resolved Assessment & Plan (03/27/2022 1:43 PM EDT): Pt endorsing chest pain at admission and described it as shortness of breath along with epigastric pain that radiates up to her neck and down her right arm. She states she has had multiple stress tests in the past however reports that she has passed out during these tests. Per chart review, stress echo from 12/02/2018 with LVEF >65%. It ER troponin negative x 2, EKG normal sinus rhythm with no acute ischemic changes and CXR negative. Etiology of chest pain unclear however will proceed with cardiac eval to rule that out. -follow up nuclear stress test Assessment & Plan (03/27/2022 1:20 AM EDT): Patient presenting to the ED with chief complaint of worsening bladder pain along with some substernal chest pain. She describes the chest pain as shortness of breath along with epigastric pain that radiates up to her neck and down her right arm. She states she has had multiple stress tests in the past however reports that she has passed out during these tests. Per chart review, stress echo from 12/02/2018 with LVEF >65%. In addition she reports that she has had pancreatitis in the past however has not noticed any decrease in appetite or nausea vomiting and is not an active drinker. On arrival to the ED her vital signs are stable, troponin was less than 0.01x2, EKG normal sinus rhythm with left axis deviation no ST/T wave changes, and her chest x-ray was unremarkable. HEART score is a 3 based on history of smoking and age over 65. Patient does not have a history of hypertension or hyperlipidemia or diabetes, however does report that her father from a myocardial infarction. Plan - Follow up repeat stress echo - Follow up 3rd Troponin - Follow up lipase given pancreatitis history - EKG prn for further chest pain - Follow up Lipid Panel - Cardiac diet Family History Medical History Relation Name Comments Diabetes Brother Myocardial Infarction Father Atrial fibrillation Mother Relation Name Status Comments Brother Father Mother Social History Tobacco Use Types Packs/Day Years Used Date Smoking Tobacco: Former Cigarettes 0.5 20 1 0 - 1989 Smokeless Tobacco: Never Tobacco Cessation:Counseling Given: Not Answered Comments:on - off Alcohol Use Standard Drinks/Week Comments Not Currently 0 (1 standard drink = 0.6 oz pur e alcohol) Hunger Vital Sign Answer Date Recorded Within the past 12 months, y ou worried that your food would run out before you got the money to buy more. Never true 05/01/20 22 Within the past 12 months, t he food you bought just didn't last and you didn't have money to get more. Never true 05/01/2022 Transportation Answer Date Recorded Please alvino the areas for ich the patient would like information or assistance: Stress;Food 05/01/2022 Lack of Transportation (Medical) Not on file 05/01/2022 Housing Stability Answer Date Recorded Please alvino the areas for ich the patient would like information or assistance: Stress;Food 05/01/2022 Unable to Pay for Housing in the Last Year Not o n file 05/01/2022 Last EPDS Total Score Not on file 05/01/2022 Unstable Housing in the Last Year Not on file 05/01/2022 Comments No Sex and Gender Information Value Date Recorded Sex Assigned at Female 04/29/2022 8:56 AM EDT Legal Sex Female 7:11 PM EDT Gender Identity Female 04/29/2022 8:56 AM EDT Sexual Orientation Straight 04/29/2022 8: 56 AM EDT Occupation Industry Job Start Date Job End Date retired Not on file Not on file Not on file Last Filed Vital Signs Vital Sign Reading Time Taken Comments Blood Pressure 137/75 07/03/2022 7:09 PM EDT Pulse 75 07/03/2022 7:09 PM EDT Temperature 36.6 C (97.9 F) 07/03/2022 1:51 PM EDT Respiratory Rate 19 07/03/2022 7:09 PM EDT Oxygen Saturation 99% 07/03/2022 7:09 PM EDT Inhaled Oxygen Concentration - - Weight 71.7 kg (158 lb) 06/04/2022 9:25 AM EDT Height 160 cm (5' 3 ) 06/05/2022 2:28 PM EDT Body Mass Index 27.99 06/04/2022 9:25 AM EDT Plan of Treatment Health Maintenance Due Date Last Done Comments Cologuard 1952 Colon Cancer Screening 1952 Colonoscopy 1952 FOBT / Fit Test 1952 Sigmoidoscopy 1952 Medicare AWV 1953 DTaP,Tdap,and Td Vaccines (1 - Tdap) 1974 Mammogram 1992 Osteoporosis Screening 2002 Pneumococcal Vaccine: 50+ Ye ars (1 of 1 - PCV) 2002 Zoster Vaccines (2 of 2) 11/10/2022 09/15/2022 Alcohol/Substance Use Screening 10/11/2024 Depression Screening and Follow-Up 10/11/2024 Health Care Proxy Review 10/11/2024 Social Drivers of Health Marianne ual Screening 10/11/2024 COVID-19 Vaccine (2 - 2024-2 6 season) 2025 09/15/2022 Influenza Vaccine (#1) 2025 RSV Vaccine (60+ years old a nd patients) (1 - 1-dose 75+ series) 2027 Hepatitis C Screening Completed 06/04/2022 Hepatitis B Vaccines Aged Out No long er eligible based on patient's age to complete this topic Procedures * Due to [place] state law, this organization might not be sharing negative HIV tests. Procedure Name Priority Date/Time Associated Diagnosis Comments HEPATITIS C ANTIBODY W/REFLEX TO HCV RNA, QUANTITATIVE PCR STAT 06/04/2022 9:51 AM EDT from Last 3 Months or Most Recently Relevant to Health Maintenance Results * Due to [place] state law, this organization might not be sharing negative HIV tests. * Hepatitis C Antibody w/Reflex to HCV RNA, Quantitative PCR (06/04/2022 9:51 AM EDT) Hepatitis C Antibody NON-REACT DANITZA NON-REACT DANITZA 06/04/2022 7:41 PM EDT [facility] Signal To Cut-Off 0.09 <1.00 06/04/2022 7:41 PM EDT [facility] Comment: HCV antibody was non-reactive. There is no laboratory evidence of HCV infection. In most cases, no further action is required. However, if recent HCV exposure is suspected, a test for HCV RNA (test code 06321) is suggested. For additional information please refer to http://education.[employer]/faq/ZSB49q1 (This link is being provided for informational/ educational purposes only.) Blood Structure of peripheral vein / Unknown Venipuncture / Unknown 06/04/2022 9:51 AM EDT 06/04/2022 10:12 AM EDT Narrative ORTEGA GALVAN - 06/04/2022 7:41 PM EDT [facility] Received Date: Feliz Balbuena II, MD LAB BLOOD ORDERABLES Final Result ORTEGA GALVAN [address] [facility] [address], [place] [address], [place] [phone] [employer] [facility] [address], [place] [address], [place] [phone] from Last 3 Months or Most Recently Relevant to Health Maintenance Insurance MEDICARE [facility] Advance Directives * DNR/DNI (Latest Code Status on File) Date Activated Date Inactivated Comments 05/25/2022 2:19 PM 05/29/2022 8:18 PM * Presumed Full Code Date Activated Date Inactivated Comments 05/23/2022 3:12 PM 05/25/2022 2:19 PM * Full Code Date Activated Date Inactivated Comments 05/11/2022 10:32 PM 05/18/2022 7:23 PM * Presumed Full Code Date Activated Date Inactivated Comments 04/23/2022 2:48 PM 04/25/2022 4:16 PM * DNR/DNI Date Activated Date Inactivated Comments 03/26/2022 10:17 PM 03/31/2022 4:46 PM Healthcare Agents on File Name Relationship Healthcare Agent Relationship Communication Alf Austin Friend Health Care Agent Care Teams Insole Tacker Relationship Specialty Start Date End Date Andrew Kebede PCP - General Internal Medicine 11/07/21
--- OUTSIDE RECORDS SUMMARY | 2025-07-13 23:04 | XMS_ITS | Encounter Summary ---
Author Organization [facility] Address [address] [place] [address] Care Team Providers Care Instrumental Music Teacher Name Role Phone Andrew Kebede DO Primary Care Provider Encounter Details Date Type Department Care Team (Late st Contact Info) Description 02/02/2025 Lab Requisition [facility] - Main Lab [address] [facility] [place] [address] Andrew Kebede MD [address] [place] [phone] Essential (primary) hypertension Social History Tobacco Use Types Packs/Day Years [...] Procedure Name Priority Date/Time Associated Diagnosis Comments LT GREEN - LI HEPARIN Routine 02/02/2025 10:00 AM EDT Essential (primary) hypertension B-TYPE NATRIURETIC PEPTIDE Routine 02/02/2025 10:00 AM EDT Essential (primary) hypertension documented in this encounter Results * Green LI heparin tube (02/02/2025 10:00 AM EDT) Extra Tube Hold for add-ons. 02/02/2025 12:01 PM EDT [facility] Comment:Auto resulted. Blood Venous blood specimen / Unknown 02/02/2025 10:00 AM EDT 02/02/2025 10:59 AM EDT Andrew Kebede MD LAB BLOOD ORDERABLES Final Resul t Performing Organization Address City/[facility]/ZIP Co de Phone Number [facility] [address] [place] [address], [place] [phone] * (ABNORMAL) B-type natriuretic peptide (02/02/2025 10:00 AM EDT) BNP 209(H) <=100 pcg/mL LAB CHEMISTRY METHOD 02/02/2025 11:49 AM EDT [facility] Blood Venous blood specimen / Unknown 02/02/2025 10:00 AM EDT 02/02/2025 10:58 AM EDT Andrew Kebede MD LAB BLOOD ORDERABLES Final Resul t Performing Organization Address City/[facility]/ZIP Co de Phone Number [facility] [address] [place] [address], [place] [phone] documented in this encounter Visit Diagnoses Diagnosis Essential (primary) hypertension Unspecified essential hypertension documented in this encounter Care Teams Instrumental Music Teacher Relationship Specialty Start Date End Date Andrew Kebede DO [address] [place] [phone] PCP - General Internal Medicine 02/01/25 documented as of this encounter
--- OUTSIDE RECORDS SUMMARY | 2025-07-13 23:04 | XMS_ITS | Encounter Summary ---
Author Organization [facility] Address [address] [place] [address] Care Team Providers Care Principle Software Engineer Name Role Phone Andrew Kebede MD Primary Care Provider [phone] Andrew Kebede MD Unavailable Reason for Visit * Reason Onset Date Comments Call Request 07/11/2025 Encounter Details Date Type Department Care Team (Late st Contact Info) Description 07/11/2025 Telephone [facility] [address] [place] [address] Karin Dent [place] Call Request Social History Tobacco Use Types Packs/Day Years Used Date Smoking Tobacco: Former Cigarettes 1991 Smokeless Tobacco: Never Alcohol Use Standard Drinks/Week Comments Never 0 (1 standard drink = 0.6 oz pur e alcohol) Utilities Answer Date Recorded In the past 12 months has [employer], gas, oil, or water [employer] threatened to shut off services in your [...] place to sleep or slept in a long term (including now)? No 12/24/2023 Housing Stability Vital Sign Answer Ethan e Recorded Unable to Pay for Housing in the Last Year Not o n file 03/01/2025 Number of Times Moved in the Last Year Not on fi le 03/01/2025 At any time in the past 12 m [facility], were you homeless or living in a long term (including now)? No 03/01/2025 Comments No Sex [...] 1:00 AM EDT Bronson Wilkins, RN * Because of a physical, mental, [...] Bronson Wilkins, RN documented in this encounter Miscellaneous Notes * Telephone Encounter - Chayo Benítez RN - 07/11/2025 1:57 PM EDT MD call request sent to DR Kebede for patient f/u. * Telephone Encounter - Karin Dent MA - 07/11/2025 11:57 AM EDT Patient called requesting to speak with MD. Not stated reason why [phone]- Jesusita documented in this encounter Plan of Treatment Upcoming Encounters Date Type Department Care Team (Late st Contact Info) Description 07/10/2025 11:59 PM EDT Anesthesia Event [facility] Imaging [address] [place] [address] Claudia Bell MD [address] [facility], [address] [place] [address] 07/19/2025 1:30 PM EDT Lab [facility] Hematology/Oncology Clinic [address] [place] [address] 07/19/2025 2:00 PM EDT Office Visit [facility] [address] [place] [address] Kartik Fields MD [address] [place] [address] 07/19/2025 2:00 PM EDT Office Visit [facility] Division of Palliative Care [address] [facility] [address] [place] [phone] Sigrid Gaston MD [address] [facility] [address] [place] [address] 07/19/2025 3:00 PM EDT Office Visit [facility] [address] [facility] [address] [place] [address] Andrew Kebede MD [address] [place] [phone] 07/25/2025 11:00 AM EDT Appointment [facility] Imaging [address] [place] [phone] 08/13/2025 3:15 PM EST Appointment [facility] Radiation Oncology [address] [facility] [place] [phone] Luis Angel Reid MD [address] [facility] [address] [place] [address] documented as of this encounter Goals Goal Patient Goal Type Associated Problems Recent Progress Patient-Stated? Author Autogenerat ed Goal Care Plan Autogenerated Problem Nirav Barrett DO documented as of this encounter Visit Diagnoses Not on filedocumented in this encounter Additional Health Concerns Active Problems Noted Date Diagnosed Date Autogenerated Problem 06/29/2025 documented as of this encounter Care Teams Principle Software Engineer Relationship Specialty Start Date End Date Andrew Kebede MD [address] [place] [address] PCP - General 11/14/21 Andrew Kebede MD [address] [place] [phone] 11/14/21 documented as of this encounter
--- OUTSIDE RECORDS SUMMARY | 2025-07-13 23:04 | XMS_ITS | Encounter Summary ---
Author Organization [facility] Address [address] [place] [address] Care Team Providers Care Medicare Compliance Auditor Name Role Phone Andrew Kebede MD Primary Care Provider [phone] Andrew Kebede MD Unavailable PortiaCarina Colunga RN Unavailable Unavailable Reason for Visit * Reason Onset Date Comments Med Refill 01/24/2025 Encounter Details Date Type Department Care Team (Late st Contact Info) Description 01/24/2025 Refill [facility] [address] [facility] [address] [place] [address] Andrew Kebede MD [address] [place] [address] H/O breast surgery; Post herpetic neuralgia Social History Tobacco Use Types Packs/Day Years Used Date Smoking Tobacco: Never Smokeless Tobacco: Never Alcohol Use Standard Drinks/Week Comments Never 0 (1 standard drink = 0.6 oz pur e alcohol) Utilities Answer Date Recorded In the past 12 months has [employer], gas, oil, or water [employer] threatened to shut off services in your home? Patient declined 01/15/2025 AUDIT-C Answer Date Recorded Q1: How often [...] food, housing, medical care, and heating? Patient declined 01/15/2025 Hunger Vital Sign Answer Date Recorded Within the past 12 months, y ou worried that your food would run out before you got the money to buy more. Patient declined Ran Out of Food in the Last Year Not on file 01/15/2025 PRAPARE - Transportation Answer Date Re corded In the past 12 months, has l ack of transportation kept you from medical appointments or from getting medications? Patient declined 01/15/2025 In the past 12 months, has l ack of transportation kept you from meetings, work, or from getting things needed for daily living? Patient declined 01/15/2025 Housing Stability Vital Sign Answer Ethan e [...] the Last Year Not o n file 01/15/2025 Number of Times Moved in the Last Year Not on fi le 01/15/2025 At any time in the past 12 m [facility], were you homeless or living in a custodial (including now)? Patient declined 01/15/2025 Comments No Sex and Gender Information Value [...] BERT * Do you have serious difficulty walking [...] Telephone Encounter - Andrew Kebede MD - 01/24/2025 10:40 AM EDT Was given oxycodone in hospital for pain as well as the morphine Has been having muscle pain, can barely walk. She had had muscle pain after starting Lipitor was changed to Crestor. Also having back pain. Having trouble sleeping. Exhausted because of that. Brewing low grade headache since she left the hospital. * Telephone Encounter - Erica Guy MA - 01/24/2025 10:28 AM EDT Stated she hasn't felt well since coming home and would like a callback from Dr. Kebede. documented in this encounter Plan of Treatment Upcoming Encounters Date Type Department Care Team (Late st Contact Info) Description 07/10/2025 11:59 PM EDT Anesthesia Event [facility] [address] [place] [address] Claudia Bell MD [address] [place] [address], [address] [place] [address] 07/19/2025 1:30 PM EDT Lab [facility] Hematology/Oncology Clinic [address] [place] [address] 07/19/2025 2:00 PM EDT Office Visit [facility] [address] [place] [address] Kartik Fields MD [address] [place] [address] 07/19/2025 2:00 PM EDT Office Visit [facility] Division of Palliative Care [address] [facility] [address] [place] [address] Sigrid Gaston MD [address] [facility] [address] [place] [address] 07/19/2025 3:00 PM EDT Office Visit [facility] [address] [facility] [address] [place] [address] Andrew Kebede MD [address] [place] [address] 07/25/2025 11:00 AM EDT Appointment [facility] Imaging [address] [place] [address] 08/13/2025 3:15 PM EST Appointment [facility] Radiation Oncology [address] [facility] [place] [address] Luis Angel Reid MD [address] [facility] [address] [place] [address] documented as of this encounter Visit Diagnoses Diagnosis H/O breast surgery Post herpetic neuralgia Herpes zoster with other nervous system complications documented in this encounter Care Teams Medicare Compliance Auditor Relationship Specialty Start Date End Date Andrew Kebede MD [address] [place] [address] PCP - General 11/14/21 Andrew Kebede MD [address] [place] [address] 11/14/21 Carina Pearce, soils analystTransfer Driver 03/19/25 04/25/25 documented as of this encounter
--- OUTSIDE RECORDS SUMMARY | 2025-07-13 23:04 | XMS_ITS | Encounter Summary ---
Author Organization [facility] Address [address] [place] [address] Care Team Providers Care Stage Manager Name Role Phone Andrew Kebede MD Primary Care Provider [phone] Andrew Kebede MD Unavailable PortiaCarina Colunga RN Unavailable Unavailable Reason for Visit * Reason Onset Date Comments Med Refill 06/01/2024 Encounter Details Date Type Department Care Team (Late st Contact Info) Description 06/01/2024 Refill [facility] [address] [facility] [address] [place] [address] Andrew Kebede MD [address] [place] [address] Post herpetic neuralgia Social History [...] Description 07/10/2025 11:59 PM EDT Anesthesia Event [facility] [address] [place] [address] Claudia Bell MD [address] [facility] [address] [place] [address] 07/19/2025 1:30 PM EDT Lab [facility] Hematology/Oncology Clinic [address] [place] [phone] 07/19/2025 2:00 PM EDT Office Visit [facility] Breast Health Center [address] [place] [phone] Kartik Fields MD [address] [place] [address] 07/19/2025 2:00 PM EDT Office Visit [facility] Division of Palliative Care [address] [facility] [address] [place] [address] Sigrid Gaston MD [address] [facility] [address] [place] [address] 07/19/2025 3:00 PM EDT Office Visit [facility] [address] [facility] 1 [place] [address] Andrew Kebede MD [address] [place] [address] 07/25/2025 11:00 AM EDT Appointment [facility] [address] [place] [address] 08/13/2025 3:15 PM EST Appointment [facility] Radiation Oncology [address] [facility] [place] [address] Luis Angel Reid MD [address] [facility] [address] [place] [address] documented as of this encounter Visit Diagnoses Diagnosis Post herpetic neuralgia Herpes zoster with other nervous system complications documented in this encounter Additional Health Concerns Infection Onset Date Last Indicated Resolved Time COVID-19 Rule-Out 01/14/2025 01/14/2025 01/14/2025 10:10 PM EDT documented as of this encounter Care Teams Stage Manager Relationship Specialty Start Date End Date Andrew Kebede MD [address] [place] [address] PCP - General 11/14/21 Andrew Kebede MD [address] [place] [address] 11/14/21 Carina Pearce, informatics nurseManager Drug 03/19/25 04/25/25 documented as of this encounter
--- OUTSIDE RECORDS SUMMARY | 2025-07-13 23:04 | XMS_ITS | Encounter Summary ---
Author Organization [facility] Address [address] [place] [address] Care Team Providers Care Flask Fitter Name Role Phone Andrew Kebede MD Primary Care Provider [phone] Andrew Kebede MD Unavailable PortiaCarina Colunga RN Unavailable Unavailable Encounter Details Date Type Department Care Team (Late st Contact Info) Description 05/25/2023 Refill [facility] [address] [facility] [address] [place] [address] Andrew Kebede MD [address] [place] [address] Anxiety Social History Tobacco Use [...] Description 07/10/2025 11:59 PM EDT Anesthesia Event [facility] Imaging [address] [place] [address] Claudia Bell MD [address] [facility], [address] [place] [address] 07/19/2025 1:30 PM EDT Lab [facility] Hematology/Oncology Clinic [address] [place] [address] 07/19/2025 2:00 PM EDT Office Visit [facility] Breast Health Center [address] [place] [address] Kartik Fields MD [address] [place] [address] 07/19/2025 2:00 PM EDT Office Visit [facility] Division of Palliative Care [address] [facility] [address] [place] [address] Sigrid Gaston MD [address] [facility] [address] [place] [address] 07/19/2025 3:00 PM EDT Office Visit [facility] [address] [facility] [address] [place] [phone] Andrew Kebede MD [address] [place] [phone] 07/25/2025 11:00 AM EDT Appointment [facility] Imaging [address] [place] [address] 08/13/2025 3:15 PM EST Appointment [facility] Radiation Oncology [address] [facility] [place] [address] Luis Angel Reid MD [address] [facility]. [address] [place] [address] documented as of this encounter Visit Diagnoses Diagnosis Anxiety Anxiety state, unspecified documented in this encounter Additional Health Concerns Infection Onset Date Last Indicated Resolved Time COVID-19 Rule-Out 01/14/2025 01/14/2025 01/14/2025 10:10 PM EDT documented as of this encounter Care Teams Flask Fitter Relationship Specialty Start Date End Date Andrew Kebede MD [address] [place] [address] PCP - General 11/14/21 Andrew Kebede MD [address] [place] [address] 11/14/21 Carina Pearce, pointer helperTractor Engine Mechanic 03/19/25 04/25/25 documented as of this encounter
--- OUTSIDE RECORDS SUMMARY | 2025-07-13 23:04 | XMS_ITS | Encounter Summary ---
Author Organization [facility] Address [address] [place] [address] Care Team Providers Care Sheriff Name Role Phone Andrew Kebede MD Primary Care Provider [phone] Andrew Kebede MD Unavailable Encounter Details Date Type Department Care Team (Late st Contact Info) Description 07/10/2025 Orders Only [facility] Interventional Radiology [address] [place] [phone] Justus Ruggiero MD [facility] [address] [place] [address] Social History Tobacco Use Types Packs/Day Years Used Date Smoking Tobacco: Former Cigarettes 1991 Smokeless Tobacco: Never Alcohol Use Standard Drinks/Week Comments Never 0 (1 standard drink = 0.6 oz pur e alcohol) Utilities Answer Date Recorded In the past 12 months has [employer], gas, oil, or water [employer] threatened to shut off services in your [...] in a chcf (including now)? No 12/24/2023 Housing Stability Vital Sign Answer Ethan e Recorded Unable to Pay for Housing in the Last Year Not o n file 03/01/2025 Number of Times Moved in the Last Year Not on fi le 03/01/2025 At any time in the past 12 m ont, were you homeless or living in a chcf (including now)? No 03/01/2025 Comments No Sex [...] Description 07/10/2025 11:59 PM EDT Anesthesia Event [facility] Imaging [address] [place] [address] Claudia Bell MD [address] [facility], [address] [place] [address] 07/19/2025 1:30 PM EDT Lab [facility] Hematology/Oncology Clinic [address] [place] [phone] 07/19/2025 2:00 PM EDT Office Visit [facility] [address] [place] [address] Kartik Fields MD [address] [place] [address] 07/19/2025 2:00 PM EDT Office Visit [facility] Division of Palliative Care [address] [facility] [address] [place] [address] Sigrid Gaston MD [address] [facility] Rehab [address] [place] [address] 07/19/2025 3:00 PM EDT Office Visit [facility] [address] [facility] [address] [place] [address] Andrew Kebede MD [address] [place] [address] 07/25/2025 11:00 AM EDT Appointment [facility] [address] [place] [address] 08/13/2025 3:15 PM EST Appointment [facility] Radiation Oncology [address] [facility] [place] [address] Luis Angel Reid MD [address] [facility] [address] [place] [address] documented as of this encounter Goals Goal Patient Goal Type Associated Problems Recent Progress Patient-Stated? Author Autogenerat ed Goal Care Plan Autogenerated Problem No Nirav Miguel DO documented as of this encounter Visit Diagnoses Not on filedocumented in this encounter Additional Health Concerns Active Problems Noted Date Diagnosed Date Autogenerated Problem 06/29/2025 documented as of this encounter Care Teams Sheriff Relationship Specialty Start Date End Date Andrew Kebede MD [address] [place] [address] PCP - General 11/14/21 Andrew Kebede MD [address] [place] [address] 11/14/21 documented as of this encounter
--- OUTSIDE RECORDS SUMMARY | 2025-07-13 23:04 | XMS_ITS | Encounter Summary ---
Author Organization [facility] Address [address] [place] [address] Care Team Providers Care Infectious Disease Technician Name Role Phone Andrew Kebede DO Primary Care Provider [phone] Encounter Details Date Type Department Care Team (Late st Contact Info) Description 02/01/[address] [facility] - Main Lab [address] [facility] [place] [address] Andrew Kebede DO [address] [place] [address] Essential (primary) hypertension; Malignant (primary) neoplasm, unspecified (CMS/HCC V24, CMS/HCC V28); ST elevation (STEMI) myocardial infarction of unspecified site (CMS/HCC V24, CMS/HCC V28) Social History Tobacco Use Types Packs/Day Years [...] Procedure Name Priority Date/Time Associated Diagnosis Comments CBC WITH AUTO DIFFERENTIAL Routine 02/01/2025 11:00 AM EDT Essential (primary) hypertension Malignant (primary) neoplasm, unspecified (CMS/HCC V24, CMS/HCC V28) ST elevation (STEMI) myocardial infarction of unspecified site (CMS/HCC V24, CMS/HCC V28) CBC AND DIFFERENTIAL Routine 02/01/2025 11:00 AM EDT Essential (primary) hypertension Malignant (primary) neoplasm, unspecified (CMS/HCC V24, CMS/HCC V28) ST elevation (STEMI) myocardial infarction of unspecified site (CMS/HCC V24, CMS/HCC V28) TRIIODOTHYRONINE FREE Routine 02/01/2025 11:00 AM EDT Essential (primary) hypertension Malignant (primary) neoplasm, unspecified (CMS/HCC V24, CMS/HCC V28) ST elevation (STEMI) myocardial infarction of unspecified site (CMS/HCC V24, CMS/HCC V28) THYROID STIMULATING HORMONE Routine 02/01/2025 11:00 AM EDT Essential (primary) hypertension Malignant (primary) neoplasm, unspecified (CMS/HCC V24, CMS/HCC V28) ST elevation (STEMI) myocardial infarction of unspecified site (CMS/HCC V24, CMS/HCC V28) THYROXINE FREE Routine 02/01/2025 11:00 AM EDT Essential (primary) hypertension Malignant (primary) neoplasm, unspecified (CMS/HCC V24, CMS/HCC V28) ST elevation (STEMI) myocardial infarction of unspecified site (CMS/HCC V24, CMS/HCC V28) COMPREHENSIVE METABOLIC PANEL Routine 02/01/2025 11:00 AM EDT Essential (primary) hypertension Malignant (primary) neoplasm, unspecified (CMS/HCC V24, CMS/HCC V28) ST elevation (STEMI) myocardial infarction of unspecified site (CMS/HCC V24, CMS/HCC V28) documented in this encounter Results * (ABNORMAL) CBC auto differential (02/01/2025 11:00 AM EDT) WBC 6.1 4.8 - 10.8 K/mcL LAB HEMETOLOGY METHOD 02/01/2025 12:40 PM EDT [facility] RBC 4.00 3.80 - 4.80 M/mcL LAB HEMETOLOGY METHOD 02/01/2025 12:40 PM T [facility] Hemoglobin 12.0 11.5 - 16.0 g/dL LAB HEMETOLOGY METHOD 02/01/2025 12:40 PM EDT [facility] Hematocrit 37.6 35.0 - 47.0 % LAB HEMETOLOGY METHOD 02/01/2025 12:40 PM EDT [facility] MCV 95.2 79.0 - 98.0 FL LAB HEMETOLOGY METHOD 02/01/2025 12:40 PM [facility] MCH 30.4 27.0 - 32.0 pcg LAB HEMETOLOGY METHOD 02/01/2025 12:40 PM EDT [facility] MCHC 31.9(L) 32.0 - 37.0 g/dL LAB HEMETOLOGY METHOD 02/01/2025 12:40 PM [facility] RDW 12.5 11.0 - 15.0 % LAB HEMETOLOGY METHOD 02/01/2025 12:40 PM [facility] Platelets 279 130 - 400 K/mcL LAB HEMETOLOGY METHOD 02/01/2025 12:40 PM [facility] MPV 9.8 7.0 - 11.0 FL LAB HEMETOLOGY METHOD 02/01/2025 12:40 PM [facility] NRBC 0.0 <1.0 % LAB HEMETOLOGY METHOD 02/01/2025 12:40 PM [facility] NRBC Absolute 0.00 <0.10 K/mcL LAB HEMETOLOGY METHOD 02/01/2025 12:40 PM [facility] Neutrophils Relative 57.9 % LAB HEMETOLOGY [facility] Lymphocytes Relative 29.0 % LAB HEMETOLOGY METHOD 02/01/2025 12:40 PM [facility] Monocytes Relative 10.5 % LAB HEMETOLOGY METHOD 02/01/2025 12:40 PM [facility] Eosinophils Relative 1.6 % LAB HEMETOLOGY METHOD 02/01/2025 12:40 PM EDT [facility] Basophils Relative 0.7 % LAB HEMETOLOGY METHOD 02/01/2025 12:40 PM EDT [facility] Immature Granulocytes Relative 0.3 % LAB HEMETOLOGY METHOD 02/01/2025 12:40 PM EDT [facility] Neutrophils Absolute 3.51 1.50 - 7.00 K/mcL LAB HEMETOLOGY METHOD 02/01/2025 12:40 PM EDT [facility] Lymphocytes Absolute 1.76 1.00 - 5.00 K/mcL LAB HEMETOLOGY METHOD 02/01/2025 12:40 PM EDT [facility] Monocytes Absolute 0.64 0.20 - 1.00 K/mcL LAB HEMETOLOGY METHOD 02/01/2025 12:40 PM EDT [facility] Eosinophils Absolute 0.10 0.00 - 0.50 K/mcL LAB HEMETOLOGY METHOD 02/01/2025 12:40 PM EDT [facility] Basophils Absolute 0.04 0.00 - 0.20 K/mcL LAB HEMETOLOGY METHOD 02/01/2025 12:40 PM EDT [facility] Immature Granulocytes Absolute 0.02 0.00 - 0.03 K/mcL LAB HEMETOLOGY METHOD 02/01/2025 12:40 PM EDT [facility] Blood Venous blood specimen / Unknown 02/01/2025 11:00 AM EDT 02/01/2025 12:10 PM EDT us Andrew Kebede DO LAB BLOOD ORDERABLES Final Resul t [facility] [address] [place] [address], * Thyroxine free (02/01/2025 11:00 AM EDT) Free T4 0.86 0.70 - 1.80 ng/dL LAB CHEMISTRY METHOD 02/01/2025 2:02 PM EDT [facility] Blood Venous blood specimen / Unknown 02/01/2025 11:00 AM EDT 02/01/2025 12:10 PM EDT us Andrew Kebede DO LAB BLOOD ORDERABLES Final Resul t Performing Organization Address City/[facility]/ZIP Co de Phone Number [facility] [address] [place] [address], [place] [phone] * Triiodothyronine free (02/01/2025 11:00 AM EDT) T3, Free 252 230 - 420 pcg/dL LAB CHEMISTRY METHOD 02/01/2025 2:03 PM EDT [facility] Blood Venous blood specimen / Unknown 02/01/2025 11:00 AM EDT 02/01/2025 12:10 PM EDT us Andrew Kebede DO LAB BLOOD ORDERABLES Final Resul t Performing Organization Address [facility] Co de Phone Number [facility] [address] [place] [address], [place] [phone] * Thyroid stimulating hormone (02/01/2025 11:00 AM EDT) TSH 2.82 0.40 - 4.00 mcIU/mL LAB CHEMISTRY METHOD 02/01/2025 2:03 PM EDT [facility] Blood Venous blood specimen / Unknown 02/01/2025 11:00 AM EDT 02/01/2025 12:10 PM EDT us Andrew Kebede DO LAB BLOOD ORDERABLES Final Resul t Performing Organization Address City/[facility]/ZIP Co de Phone Number [facility] [address] [place] [address], [place] [phone] * (ABNORMAL) Comprehensive metabolic panel (02/01/2025 11:00 AM EDT) Sodium 136 133 - 145 mmol/L LAB CHEMISTRY METHOD 02/01/2025 1:25 PM [facility] Potassium 3.7 3.5 - 5.5 mmol/L LAB CHEMISTRY METHOD 02/01/2025 1:25 PM [facility] Chloride 102 96 - 110 mmol/L LAB CHEMISTRY METHOD 02/01/2025 1:25 PM [facility] CO2 28 21 - 32 mmol/L LAB CHEMISTRY METHOD 02/01/2025 1:25 PM [facility] Anion Gap 6 3 - 11 LAB CHEMISTRY METHOD 02/01/2025 1:25 PM [facility] Glucose 143(H) 70 - 100 mg/dL LAB CHEMISTRY METHOD 02/01/2025 1:25 PM [facility] BUN 13 5 - 25 mg/dL LAB CHEMISTRY METHOD 02/01/2025 1:25 PM [facility] Creatinine 1.05 0.50 - 1.10 mg/dL LAB CHEMISTRY METHOD 02/01/2025 1:25 PM [facility] eGFR 57(L) >=60 mL/min/1. 73m2 LAB CHEMISTRY METHOD 02/01/2025 1:25 PM [facility] Comment:Calculation based on the Chronic Kidney Disease Epidemiology Collaboration (CKD-EPI) equation refit without adjustment for race. BUN/Creatinine Ratio 12.4 LAB CHEMISTRY METHOD 02/01/2025 1:25 PM [facility] Calcium 8.4(L) 8.5 - 10.5 mg/dL LAB CHEMISTRY METHOD 02/01/2025 1:25 PM [facility] AST (SGOT) 17 10 - 42 unit/L LAB CHEMISTRY METHOD 02/01/2025 1:25 PM EDT [facility] ALT (SGPT) 11 10 - 60 unit/L LAB CHEMISTRY METHOD 02/01/2025 1:25 PM EDT [facility] Alkaline Phosphatase 97 42 - 121 unit/L LAB CHEMISTRY METHOD 02/01/2025 1:25 PM EDT [facility] Total Protein 6.8 6.0 - 8.0 g/dL LAB CHEMISTRY METHOD 02/01/2025 1:25 PM EDT [facility] Albumin 3.1(L) 3.2 - 5.0 g/dL LAB CHEMISTRY METHOD 02/01/2025 1:25 PM EDT [facility] Total Bilirubin 0.4 0.0 - 1.4 mg/dL LAB CHEMISTRY METHOD 02/01/2025 1:25 PM EDT [facility] Blood Venous blood specimen / Unknown 02/01/2025 11:00 AM EDT 02/01/2025 12:10 PM EDT us Andrew Kebede DO LAB BLOOD ORDERABLES Final Resul t [facility] [address] [place] [address], documented in this encounter Visit Diagnoses Diagnosis Essential (primary) hypertension Unspecified essential hypertension Malignant (primary) neoplasm, unspecified (CMS/HCC V24, CMS/HCC V28) ST elevation (STEMI) myocardial infarction of unspecified site (CMS/HCC V24, CMS/HCC V28) documented in this encounter Care Teams Infectious Disease Technician Relationship Specialty Start Date End Date Andrew Kebede DO [address] [place] [phone] PCP - General Internal Medicine 02/01/25 documented as of this encounter
--- OUTSIDE RECORDS SUMMARY | 2025-07-13 23:04 | XMS_ITS | Encounter Summary ---
Author Organization [facility] Address [address] [place] [address] Care Team Providers Care Assembler Carbon Brushes Name Role Phone Andrew Kebede Primary Care Provider Encounter Details Date Type Department Care Team (Late st Contact Info) Description 12/11/2022 Telephone [facility] Central Scheduling Department [address] [place] [address] Telephone Intake, Staff Social History Tobacco Use Types Packs/Day Years Used Date Smoking Tobacco: Former Cigarettes 0.5 20 1 970 - 1989 Smokeless Tobacco: Never Comments:on - off Alcohol Use Standard Drinks/Week [...] file Not on file Not on file documented as of this encounter Miscellaneous Notes * Telephone Encounter - Genevieve Cárdenas - 12/14/2022 2:46 PM EST Patient is all set * Telephone Encounter - Trisha Felipe - 12/14/2022 10:27 AM EST Left message for patient to call clinic back to schedule appt. * Telephone Encounter - Shirin Kirk - 12/11/2022 2:52 PM EST Pt called to schedule new pt Derm Visit for moles on face that are changing in size and color. Per Dt to schedule within two weeks. Could you please contact pt to assist? Thank you! documented in this encounter Plan of Treatment Not on file documented as of this encounter Visit Diagnoses Not on filedocumented in this encounter Care Teams Assembler Carbon Brushes Relationship Specialty Start Date End Date Andrew Kebede: [phone] PCP - General Internal Medicine 11/07/21 documented as of this encounter
--- OUTSIDE RECORDS SUMMARY | 2025-07-13 23:04 | XMS_ITS | Clinical Summary ---
Author Organization [facility] Address [address] [place] [address] Care Team Providers Care Specialty Cook Name Role Phone Andrew Kebede MD Primary Care Provider [phone] Andrew Kebede MD Unavailable Allergies Active Allergy Reactions Criticality Noted Date Comments Cephalexin 2023 Ciprofloxacin 2023 Fosfomycin Tromethamine 2023 Nitrofurantoin Shortness of breath High 06/09/2022 Interstitial pneumonitis Penicillin V 2023 Prednisone 2023 Sulfa (Sulfonamide Antibiotics) 2023 Medications diclofenac (Voltaren) 1 % topical gelIndications:H/O breast surgery Apply 2 g topically if needed in the morning and at bedtime for pain. 100 g 2023 Active phenazopyridine (Pyridium) 200 mg tabletIndications:Dysu karina Take 1 tablet (200 mg) by mouth if needed in the morning, at noon, and at bedtime for bladder spasms. 12 tablet 2023 Active nitroGLYcerin (Nitrostat) 0.4 mg SL tabletIndications:Krysten nary artery disease involving nenana coronary artery of nenana heart, unspecified whether angina present Place 1 tablet (0.4 mg) under the tongue every 5 (five) minutes if needed for chest pain. May repeat every 5 minutes for up to 3 doses. 25 tablet 5 01/03 Active polyethylene glycol (Glycolax) 17 gram/dose powderIndications:Cons tipation, unspecified constipation type Take 17 g in 4-8 fluid ounces of water once daily as needed for constipation 910 g 2024 Active lactulose (Chronulac) 10 gram/15 mL oral solutionIndications:Co nstipation, unspecified constipation type Take 15 mL (10 g) by mouth if needed in the morning and at bedtime (constipation) . 900 mL 2 2024 Active clopidogrel (Plavix) 75 mg tabletIndications:Unst able angina pectoris,Heart failure with preserved ejection fraction, unspecified HF chronicity Take 1 tablet (75 mg) by mouth once daily. 30 tablet 11 04/23 Active cycloSPORINE (Restasis) 0.05 % ophthalmic emulsionIndications:Dr polk eye INSTILL 1 DROP IN BOTH EYES TWICE DAILY 180 each 3 2024 Active oxyCODONE (Roxicodone) 15 mg immediate release tabletIndications:Ches t wall pain Take 1-2 tablets (15-30 mg) by mouth every 6 (six) hours if needed (pain). 112 tablet 2024 Active ALPRAZolam (Xanax) 0.5 mg tabletIndications:Anxi ety Take one tablet in the morning, one tablet in the late afternoon as needed for anxiety 60 tablet 2 2024 Active ALPRAZolam (Xanax) 1 mg tabletIndications:Anxi ety,Primary insomnia Take 2 1/2 tablets at bedtime as needed for sleep 75 tablet 2 2024 Active morphine (MSIR) 15 mg tabletIndications:Carc inoma of breast metastatic to bone, unspecified laterality Take 2 tablets (30 mg) by mouth every 8 (eight) hours if needed for pain score 7-10 (severe). 180 tablet 2024 Active rosuvastatin (Crestor) 20 mg tabletIndications:Pure hypercholesterolemia Take 1 tablet (20 mg) by mouth once daily. 30 tablet 5 12/09 Active aspirin 81 mg chewable tabletIndications:Krysten nary artery disease involving nenana coronary artery of nenana heart, unspecified whether angina present Chew 1 tablet (81 mg) once daily. 90 tablet 2024 Active ondansetron ODT (Zofran-ODT) 4 mg disintegrating tabletIndications:Naus ea Take 1 tablet (4 mg) by mouth every 12 (twelve) hours if needed for nausea. 60 tablet 2024 Active omeprazole (PriLOSEC) [address] capsuleIndications:Remy miles Take one capsule 15 minutes before dinner every day. Do not crush or chew. 30 capsule 5 2024 Active furosemide (Lasix) 20 mg tabletIndications:Phani a, unspecified type Take one tablet alternating with two tablets once a day. 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 90 tablet 1 06/15 Discontinued furosemide (Lasix) 20 mg tabletIndications:Phani a, unspecified type Take 1 tablet (20 mg) by mouth if needed each day (Swelling). 90 tablet 07/09 Discontinued( Reorder) estrogens, conjugated, (Premarin) 0.3 mg tabletIndications:Nena pause Take one pill 5 days a week. 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, estrogen receptor positive 04/19/2023 Cancer Staging:Pathologic stage from 04/20/2023:Stage IA(pT1c, pN0(sn), cM0, G1, ER+, SD+, HER2-) - Signed by Costa Hyman MD on 06/26/2025 Pathologic stage from 04/20/2023:Stage IA(pT1c, pN1a, cM0, G2, ER+, SD+, HER2-) - Signed by Costa Hyman MD on 06/26/2025 Clinical stage from 06/26/2025:Stage IV(cT0, cN0, cM1, GX, ER: Unknown, SD: Unknown, HER2: Unknown) - Signed by Costa Hyman MD on 06/26/2025 Assessment & Plan (06/26/2025 8:18 AM EDT): Initial consultation for 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 If positive, will send for NGS testing which may inform treatment recommendations. - Recommend palliative care referral to assist with significant medical, psychological, and social symptoms including limited support - Given concerns raised for forgetfulness and recent falls, will obtain an MRI head - Continue tapering off of premarin; she aims to be off of all estrogen by end of June. I stressed the urgency of this and that estrogen discontinuation may ultimately be therapeutic - Deferred options for treatment at this time given significant anxiety and pain present - Will present at Multidisciplinary Conference Weakness Encounters Date Type Department Care Team Description 07/11/2025 Telephone [facility] [employer] [address] [place] [address] Karin Dent MA Call Request 07/10/2025 Orders Only [facility] Interventional Radiology [address] [place] [address] Justus Ruggiero MD 07/10/2025 Telephone [facility] Interventional Radiology [address] [place] [address] Lazarus Jiang RN 07/09/2025 Refill [facility] [address] [place] [address] Andrew Kebede MD Edema, unspecified type 07/09/2025 Telephone [facility] [address] [place] [address] Andrew Kebede MD 07/08/2025 Telephone [facility] [address] [place] [address] Thien Verdin MD 07/06/2025 Telephone [facility] [address] [place] [address] Karin Dent [place] Requesting a Call 07/05/2025 Telephone [facility] [address] [place] [address] Alex Grier MD 07/05/2025 Telephone [facility] [address] [place] [address] Joyce Donaldson RN 07/04/2025 Telephone [facility] [address] [place] [address] Karin Dent [place] Anxiety 07/03/2025 3:32 PM EDT - 07/03/2025 11:59 PM EDT Hospital Encounter [facility] Imaging [address] [place] [phone] Malignant neoplasm of unspecified site of right female breast (Multi-HCC); Malignant neoplasm of unspecified site of left female breast (Multi-HCC); Estrogen receptor positive status (ER+) Discharge Disposition: Home or self care 07/03/[address] [address] Joyce Donaldson RN 06/29/2025 Telephone [facility] [address] [place] [phone] Karin Dent [place] 06/25/2025 1:00 PM EDT Office Visit [facility] [address] [place] [address] Costa Hyman MD 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, estrogen receptor positive, unspecified site of breast (Multi-HCC) (Primary Dx); Malignant neoplasm of overlapping sites of both breasts in female, estrogen receptor positive (Multi-HCC) 06/25/2025 Orders Only [facility] [address] [place] [phone] Costa Hyman MD Malignant neoplasm of unspecified site of right female breast (Multi-HCC); Malignant neoplasm of unspecified site of left female breast (Multi-HCC); Estrogen receptor positive status (ER+) 06/25/2025 Travel 06/21/2025 Telephone [facility] [address] [facility] [place] [phone] Andrew Kebede MD call back (would like a call back from PCP) 06/20/2025 Orders Only [facility] [address] [place] [address] Andrew Kebede MD 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, estrogen receptor positive, unspecified site of breast (Multi-HCC) (Primary Dx) 06/20/2025 Telephone [facility] [address] [place] [address] Erica Guy MA 06/18/2025 Telephone [facility] [address] [place] [address] Erica Guy [place] 06/15/2025 1:00 PM EDT Telemedicine [facility] [address] [place] [address] Andrew Kebede MD Carcinoma of breast metastatic to bone, unspecified laterality (Multi-HCC) (Primary Dx); Nausea; Menopause 06/12/2025 Orders Only [facility] [address] [place] [address] Andrew Kebede MD 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, estrogen receptor positive, unspecified site of breast (Multi-HCC) (Primary Dx); Metastasis to bone (Multi-HCC) 06/12/2025 Telephone [facility] [address] [place] [address] Karin Dent [place] Patient Call 06/09/2025 Refill [facility] [address] [place] [address] Andrew Kebede MD Pure hypercholesterolemia ; Coronary artery disease involving nenana coronary artery of nenana heart, unspecified whether angina present ; Nausea 06/08/2025 Refill [facility] [address] [place] [address] Andrew Kebede MD Carcinoma of breast metastatic to bone, unspecified laterality (Multi-HCC) (Primary Dx) 06/08/2025 Refill [facility] [address] [place] [address] Andrew Kebede MD Carcinoma of breast metastatic to bone, unspecified laterality (Multi-HCC) 06/08/2025 Telephone [facility] [address] [place] [address] Erica Guy [place] 06/08/2025 Telephone [facility] [address] [place] [address] Erica Guy [place] 06/07/2025 Refill [facility] [address] [place], [place] [phone] Andrew Kebede MD Carcinoma of breast metastatic to bone, unspecified laterality (Multi-HCC) 06/07/2025 Orders Only [facility] [address] [place], [place] [phone] Andrew Kebede MD 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, estrogen receptor positive, unspecified site of breast (Multi-HCC) (Primary Dx); Metastasis to bone (Multi-HCC) 06/06/2025 Refill [facility] [address] [place] [address] Andrew Kebede MD Primary insomnia (Primary Dx); Anxiety 06/06/2025 Telephone [facility] [address] [place] [address] Andrew Kebede MD Medication Problem 06/06/2025 Orders Only [facility] [address] [place] [address] Andrew Kebede MD Carcinoma of breast metastatic to bone, unspecified laterality (Multi-HCC) (Primary Dx) 06/04/2025 2:30 PM EDT Telemedicine [facility] [address] [place], [place] [phone] Andrew Kebede MD Carcinoma of breast metastatic to bone, unspecified laterality (Multi-HCC) (Primary Dx); Anxiety 06/04/2025 Telephone [facility] [address] [place] [address] Karin Dent [place] Requesting a Call 05/28/2025 Telephone [facility] [address] [place] [address] Karin Dent [place] Patient Call 05/25/2025 Refill [facility] [address] [place] [address] Andrew Kebede MD Nausea 05/16/2025 Refill [facility] [address] [place], [place] [phone] Andrew Kebede MD Dry eye 05/16/2025 Telephone [facility] [address] [place] [address] Erica Guy [place] 05/16/2025 Refill [facility] [address] [place] [address] Andrew Kebede MD Chest wall pain 05/16/2025 Telephone [facility] [address] [place] [address] Andrew Kebede MD 05/14/2025 Telephone [facility] [address] [place] [address] Andrew Kebede MD Results (Would like to know PET scan results she had on 05/10/25) 05/04/2025 2:00 PM EDT Telemedicine [facility] [address] [place] [address] Andrew Kebede MD Elevated BP without diagnosis of hypertension (Primary Dx); History of bilateral breast cancer; Dyspnea on exertion; Primary insomnia; Anxiety 05/03/2025 Refill [facility] [address] [place] [address] Andrew Kebede MD Anxiety; Chest wall pain 05/01/2025 Refill [facility] [address] [place] [phone] Andrew Kebede MD Edema, unspecified type 04/30/2025 Refill [facility] [address] [place] [phone] Andrew Kebede MD Nausea 04/28/2025 Refill [facility] [address] [place] [phone] Andrew Kebede MD Menopausal syndrome on hormone replacement therapy 04/26/2025 Telephone [facility] [address] [place] [phone] Erica Guy [place] 04/22/2025 Refill [facility] [address] [place] [phone] Andrew Kebede MD Unstable angina pectoris (Multi-HCC); Heart failure with preserved ejection fraction, unspecified HF chronicity (Multi-HCC); Chest wall pain from Last 3 Months Social History Tobacco Use Types Packs/Day Years Used Date Smoking Tobacco: Former Cigarettes 1991 Smokeless Tobacco: Never Tobacco Cessation:Counseling Given: Not Answered Alcohol Use Standard Drinks/Week Comments Never 0 (1 standard drink = 0.6 oz pur e alcohol) Utilities Answer Date Recorded In the past 12 months has [employer], gas, oil, or water [employer] threatened to shut off services in your [...] in a assisted (including now)? No 12/24/2023 Housing Stability Vital Sign Answer Ethan e Recorded Unable to Pay for Housing in the Last Year Not o n file 03/01/2025 Number of Times Moved in the Last Year Not on fi le 03/01/2025 At any time in the past 12 m [facility], were you homeless or living in a assisted (including now)? No 03/01/2025 Comments No Sex and Gender Information Value Date Recorded Sex Assigned at Female 12/24/2023 4:34 PM EDT Legal Sex Female 12:46 AM EST Gender Identity Female 12/24/2023 4:34 PM EDT Sexual Orientation Straight 12/24/2023 4: 34 PM EDT Last Filed Vital Signs Vital Sign Reading Time Taken Comments Blood Pressure 117/68 06/25/2025 1:27 PM EDT Pulse 66 06/25/2025 1:27 PM EDT Temperature 36.3 C (97.3 F) 06/25/2025 1:27 PM EDT Respiratory Rate 20 06/25/2025 1:27 PM EDT Oxygen Saturation 97% 06/25/2025 1:27 PM EDT Inhaled Oxygen Concentration - - Weight 62 kg (136 lb 9.6 oz) 06/25/2025 1:27 PM EDT Height 162.6 cm (5' 4.02 ) 06/25/2025 1:27 PM ED T Body Mass Index 23.44 06/25/2025 1:27 PM EDT Plan of Treatment Upcoming Encounters Date Type Department Care Team (Late st Contact Info) Description 07/10/2025 11:59 PM EDT Anesthesia Event [facility] Imaging [address] [place] [phone] Claudia Bell MD [address] [facility], [address] [place] [address] 07/19/2025 1:30 PM EDT Lab [facility] Hematology/Oncology Clinic [address] [place] [phone] 07/19/2025 2:00 PM EDT Office Visit [facility] [address] [place] [phone] Costa Hyman MD [address] [place] [address] 07/19/2025 2:00 PM EDT Office Visit [facility] Division of Palliative Care [address] [place] [phone] Sigrid Gaston MD [address] [place] [address] 07/19/2025 3:00 PM EDT Office Visit [facility] [address] [facility] [address] [place] [phone] Andrew Kebede MD [address] [place] [phone] 07/25/2025 11:00 AM EDT Appointment [facility] Imaging [address] [place] [phone] 08/13/2025 3:15 PM EST Appointment [facility] Radiation Oncology [address] [facility] [place] [phone] Luis Angel Reid MD [address] [facility] [address] [place] [phone] Health Maintenance Due Date Last Done Comments Bone Density Scan 1950 CT Colonography 1950 Colonoscopy 1950 Colorectal Cancer Screening 1950 FIT-DNA 1950 FIT 1950 FOBT 1950 Sigmoidoscopy 1950 Hepatitis C Screening 1970 DTaP/Tdap/Td Vaccines (1 - Tdap) 1971 Medicare Annual Wellness (AWV) 03/11/2015 Pneumococcal Vaccine: 50+ Years (2 of 2 - PPSV23, PCV20, or PCV21) 08/17/2020 06/22/2020, 12/13/2017 Depression Screening 10/11/2024 COVID-19 Vaccine (4 - season) 2025 09/15/2022, 02/11/2022, 10/08/2021 Influenza Vaccine (#1) 2025 , 07/09/2023, 06/28/2022, Additional history exists Diabetes Screening 08/04/2025 08/04/2024, 12/25/2021 High Risk LDL 02/27/2026 02/27/2025, 05/2 , 12/29/2024, Additional history exists Lipid Panel 02/27/2030 02/27/2025, 05/2 , 12/29/2024, Additional history exists Mammogram Discontinued 01/11/2018 Pneumococcal Vaccine: Pediatrics (0 to 5 Years) and At-Risk Patients (6 to 49 Years) Discontinued 06/22/2020, 12/13/2017 Zoster Vaccines Completed 09/15/2022, 06/28/2022 HIB Vaccines Aged Out No longer eligi ble based on patient's age to complete this topic HPV Vaccines Aged Out No longer eligi ble based on patient's age to complete this topic Hepatitis A Vaccines Aged Out No long er eligible based on patient's age to complete this topic Hepatitis B Vaccines Aged Out No long er eligible based on patient's age to complete this topic IPV Vaccines Aged Out No longer eligi ble based on patient's age to complete this topic Meningococcal B Vaccine Aged Out No l onger eligible based on patient's age to complete this topic Meningococcal Vaccine Aged Out No jamie tere eligible based on patient's age to complete this topic Rotavirus Vaccines Aged Out No longer eligible based on patient's age to complete this topic Goals Goal Patient Goal Type Associated Problems Recent Progress Patient-Stated? Author Autogenerat ed Goal Care Plan Autogenerated Problem No Nirav Miguel, DO Procedures Procedure Name Priority Date/Time Associated Diagnosis Comments MR BRAIN W AND WO CONTRAST Routine 07/03/2025 5:06 PM EDT Malignant neoplasm of unspecified site of right female breast (Multi-HCC) Malignant neoplasm of unspecified site of left female breast (Multi-HCC) Estrogen receptor positive status (ER+) LIPID PANEL Routine 02/27/2025 2:50 PM EDT Hx of acute myocardial infarction Pure hypercholesterolemia GLUCOSE Routine 08/04/2024 4:27 PM EDT MAMMOGRAPHY-MAMM OGRAM - BILAT SCREENING DIGITAL Routine 01/11/2018 3:18 PM EDT from Last 3 Months or Most Recently Relevant to Health Maintenance Results * MR BRAIN W AND WO CONTRAST (07/03/2025 5:06 PM EDT) Anatomical Region Laterality Modality Brain, Head Magnetic Resonan ce 07/06/2025 9:4 1 AM EDT Impressions 07/06/2025 9:57 AM EDT Impression: No acute intracranial process is noted. No evidence of metastasis in the current study. APPROVED BY STAFF RADIOLOGIST: Joel Abbott 07/06/2025 9:57 AM EDT Narrative 07/06/2025 9:57 AM EDT NAME: DELANEY VILLANUEVA : 1950 AGE: 75 years GENDER: Female ORD PHYS: COSTA HYMAN LOCATION: [facility] 07/03/2025 5:06 PM EDT [id number] (MR BRAIN W AND WO CONTRAST) [id number] MR BRAIN W AND WO CONTRAST Indication: breast cancer, Technique: Multiplanar, multisequence MRI images of brain were obtained without and with injection of contrast. Findings: The study was compared to the prior study dated 10/29/2016. The sensitivity of the study has been decreased due to motion artifact. Within this confinement: The cerebral sulci as well as ventricular system are appropriate for age. There is no restricted diffusion. Hyperintensities on T2 and FLAIR images in the kang radiata and centrum semiovale with sparing of U fibers are nonspecific, statistically most likely consistent with moderate microvascular ischemic changes. There is no intracranial mass, mass effect, midline shift, intra or extra-axial fluid collection or large hemorrhage. No abnormal enhancing lesion is noted. Normal flow-void in the intracranial vessels is noted. Bilateral enlarged perivascular spaces in basal ganglia is noted. The visualized portions of orbits, mastoid air cells as well as paranasal sinuses are unremarkable. There is status post bilateral lens replacement. Procedure Note Joel Abbott MD - 07/06/2025 NAME: DELANEY VILLANUEVA : 1950 AGE: 75 years GENDER: Female ORD PHYS: COSTA HYMAN LOCATION: [facility] 07/03/2025 5:06 PM EDT [id number] (MR BRAIN W AND WO CONTRAST) [id number] MR BRAIN W AND WO CONTRAST Indication: breast cancer, Technique: Multiplanar, multisequence MRI images of brain were obtainedwithout and with injection of contrast. Findings: The study was compared to the prior study dated 10/29/2016. The sensitivity of the study has been decreased due to motion artifact.Within this confinement: The cerebral sulci as well as ventricular system are appropriate forage. There is no restricted diffusion. Hyperintensities on T2 and FLAIR imagesin the kang radiata and centrum semiovale with sparing of U fibers arenonspecific, statistically most likely consistent with moderatemicrovascular ischemic changes. There is no intracranial mass, mass effect, midline shift, intra orextra-axial fluid collection or large hemorrhage. No abnormal enhancing lesion is noted. Normal flow-void in the intracranial vessels is noted. Bilateral enlargedperivascular spaces in basal ganglia is noted. The visualized portions of orbits, mastoid air cells as well as paranasalsinuses are unremarkable. There is status post bilateral lensreplacement. IMPRESSION: Impression: No acute intracranial process is noted. No evidence of metastasis in thecurrent study. APPROVED BY STAFF RADIOLOGIST: Joel Scar 07/06/2025 9:57 AM EDT Costa Hyman MD IMG MRI PROCEDURES Final Result * (ABNORMAL) Lipid panel (02/27/2025 2:50 PM EDT) Cholesterol 151 100 - 199 mg/dL [facility] 1 Triglycerides 159(H) 0 - 149 mg/dL [facility] HDL Cholesterol 76 >39 mg/dL [facility] VLDLc Calc 26 5 - 40 mg/dL [facility] LDLc Calc (NIH) 49 0 - 99 mg/dL [facility] LDL Calculation Comment [facility] Comment:See LDL Comment if r eported. Non-HDL Chol 75 0 - 129 mg/dL [facility] Blood Venous blood specimen / Unknown 02/27/2025 2:50 PM EDT 02/27/2025 Comment:Blood, Venous Narrative [facility] - 02/28/2025 7:15 AM EDT Performed at: - [facility] [address] [id number] Bench Lathe Operator: Emily Abel MD, Phone: [phone] us Andrew Kebede MD LAB BLOOD ORDERABLES Final Resul t Performing Organization Address [facility] de Phone Number [facility] [address] [facility] * (ABNORMAL) Glucose (08/04/2024 4:27 PM EDT) Glucose 147(H) 70 - 99 mg/dL [facility] 1 08/04/2024 4:27 PM EDT 08/04/2024 Narrative [facility] - 08/05/2024 2:45 AM EDT Performed at: - [facility] [address] [id number] Bench Lathe Operator: Emily Abel MD, Phone: [phone] us Andrew Kebede MD LAB BLOOD ORDERABLES Final Resul t Performing Organization Address [facility] Co de Phone Number [facility] [address] [place] [address], [facility] * Mammography-Mammogram - BILAT Screening Digital (01/11/2018 3:18 PM EDT) Anatomical Region Laterality Modality Breast Ultrasound 01/11/2018 3:18 PM EDT Narrative 01/12/2018 5:43 PM EDT Final [facility] NAME: DELANEY VILLANUEVA MR#: [id number] [address] [facility] ORD PHYS: [place] [address] : 1950 AGE: 67 year(s) SEX: F EXAM DATE: 01/11/2018 EXAM ID: [id number] Mammography LOCATION: [facility] EXAM: MAMMOGRAM - BILAT SCREENING DIGITAL CLINICAL DATA: REASON FOR EXAM: Screening ORDER COMMENTS: Bilateral digital screening mammogram with CAD performed on 01/11/2018 INDICATION: Routine screening COMPARISON: 03/30/2014 TECHNIQUE: Standard views of both breasts were performed. Both implant displaced and nonimplant displaced views were obtained in the lateral oblique and craniocaudal projections of both breasts. The mammograms were reviewed with iCAD version 7.2. BREAST COMPOSITION: Scattered fibroglandular tissue is present bilaterally.The breasts appear to contain less than 50% fibroglandular tissue. They are not considered to be dense breasts. FINDINGS: There is no dominant mass, suspicious microcalcifications or architectural distortion. IMPRESSION: No mammographic evidence of malignancy. No significant interval change The false negative rate of mammography is approximately 10%. As long as patient's physical examination remains normal, annual screening mammogram is recommended. BI-RADS category 1. 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 Health Care Proxy 01/20/2025 12:21 PM DNR (Do Not Resuscitate)/DNI (Do Not Intubate) 01/20/2025 12:21 PM Advance Directives and Living Will 01/16/2025 Healthcare Proxy Advance Directives and Living Will 12/27/2023 Health Care Proxy * DNR/DNI (Latest Code Status on File) Date Activated Date Inactivated Comments 01/16/2025 2:19 PM * Full Code Date Activated Date Inactivated Comments 01/15/2025 12:44 PM 01/16/2025 2:19 PM * DNR/DNI Date Activated Date Inactivated Comments 01/14/2025 10:18 PM 01/15/2025 12:44 PM * Full Code Date Activated Date Inactivated Comments 12/24/2023 5:56 AM 12/28/2023 5:23 PM Care Teams Specialty Cook Relationship Specialty Start Date End Date Andrew Kebede MD [address] [place] [phone] PCP - General 11/14/21 Andrew Kebede MD [address] [place] [address] 11/14/21
--- OUTSIDE RECORDS SUMMARY | 2025-07-13 23:04 | XMS_ITS | Encounter Summary ---
Author Organization [facility] Address [address] [place] [address] Care Team Providers Care Advanced Practice Psychiatric Nurse Name Role Phone Andrew Kebede Primary Care Provider [phone] Encounter Details Date Type Department Care Team (Late st Contact Info) Description 05/01/2022 [place] Message [facility] [address] [place] [phone] Erica Morgan, RN Contact for nurse navigator Social History Tobacco Use Types Packs/Day Years Used Date Smoking Tobacco: Former Cigarettes 0.5 20 1 0 - 1989 Smokeless Tobacco: Never Comments:on - [...] Date Recorded Please alvino the areas for wh ich the patient would like information or assistance: Stress;Food 05/01/2022 Lack of Transportation (Medical) Not on file 05/01/2022 Housing Stability Answer Date Recorded Please alvino the areas for wh ich the patient would like information or [...] Infection Onset Date Last Indicated Resolved Time R/O Respiratory Virus Infection 05/23/2022 05/23/2022 11:55 AM EDT R/O Influenza 05/23/2022 05/23/2022 05/23/2022 11: 55 AM EDT COVID-19 - Suspected infection 05/23/2022 05/23/2022 05/23/2022 11:55 AM EDT R/O Respiratory Virus Infection 07/03/2022 07/03/2022 3:45 PM EDT R/O Influenza 07/03/2022 07/03/2022 07/03/2022 3:4 5 PM EDT COVID-19 - Suspected infection 07/03/2022 07/03/2022 07/03/2022 3:45 PM EDT documented as of this encounter Care Teams Advanced Practice Psychiatric Nurse Relationship Specialty Start Date End Date Andrew Kebede PCP - General Internal Medicine 11/07/21 documented as of this encounter
--- OUTSIDE RECORDS SUMMARY | 2025-07-13 23:04 | XMS_ITS | Clinical Summary ---
Author Organization [address] Address [address] [place] [phone] Phone Care Team Providers Care Line Tender Flakeboard Name Role Phone Andrew Kebede DO Primary Care Provider [phone] Allergies Active Allergy Reactions Criticality Noted Date Comments Nitroglycerin Headache,Unknown High 07/13/2023 Other Reaction(s): Headache Oxycodone Headache 06/05/2022 Penicillins Unknown High 09/22/2023 Prednisone Other,Swelling,Unkno wn High 02/12/2016 abd tumors Abdominal tumors Sulfa (Sulfonamide Antibiotics) Unknown 07/13/2025 Medications ALPRAZolam (XANAX) 0.5 mg tablet Take 1 tablet (0.5 mg total) by mouth 4 (four) times a day if needed for anxiety. Active clopidogreL (PLAVIX) 75 mg tablet Take 1 tablet (75 mg total) by mouth daily. 5 026 Active cycloSPORINE (RESTASIS) 0.05 % ophthalmic emulsion Administer 1 drop into both eyes 2 times daily. 2 Active diclofenac (VOLTAREN) 1 % topical gel Apply 2 g topically 2 times daily as needed. 4 Active lactulose (CHRONULAC) solution Take 30 mL (20 g total) by mouth once daily as needed. Active morphine (MSIR) 15 mg tablet Take 1 tablet (15 mg total) by mouth Every 4 hours as needed. 5 Active ondansetron (ZOFRAN) 4 mg tablet Take 1 tablet (4 mg total) by mouth every 8 hours as needed. Active polyethylene glycol (PEG) 17 gram/dose oral powder Take 17 g by mouth 1 (one) time if needed for constipation. 2 Active rosuvastatin (CRESTOR) 20 mg tablet Take 1 tablet (20 mg total) by mouth daily. 5 026 Active furosemide (LASIX) 20 mg tablet Take 1 tablet (20 mg total) by mouth 1 (one) time each day. Take one table alternating with two tables once a day 5 Active aspirin 81 mg chewable tablet Chew 1 tablet (81 mg total) daily. 5 025 Discontinu ed(Discont inued by another clinician) estrogens, conjugated, (PREMARIN) 0.625 mg tablet Take 1 tablet (0.625 mg total) by mouth daily. 1 025 Discontinu ed(Discont inued by another clinician) morphine (MSIR) 15 mg tablet Take 2 tablets (30 mg total) by mouth every 8 hours as needed. 5 025 Discontinu ed(Formula ry change) oxyCODONE (ROXICODONE) 10 mg immediate release tablet Take 0.5 tablets (5 mg total) by mouth every 6 hours as needed. 4 025 Discontinu ed(Discont inued by another clinician) phenazopyridin e (PYRIDIUM) 200 mg tablet Take 1 tablet (200 mg total) by mouth 3 times daily as needed. 4 025 Discontinu ed(Discont inued by another clinician) Encounters Date Type Department Care Team Description 07/13/2025 3:36 PM EDT - Present Emergency [facility] Emergency [address] [place] [address] Garfield Talamantes MD Paranoia ([facility] V24, [facility] V28) (Primary Dx) from Last 3 Months Surgical History Surgery Date Site/Laterality Comments MASTECTOMY Social History Tobacco Use Types Packs/Day Years Used Date Smoking Tobacco: Unknown Tobacco Cessation:Counseling Given: Not Answered Comments Unknown Sex and Gender Information Value Date Recorded Sex Assigned at Not on file Legal Sex Female 9:02 PM EST Gender Identity Not on file Sexual Orientation Not on file Obstetrics History Last Filed Vital Signs Vital Sign Reading [...] Mass Index 21.97 07/13/2025 3:43 PM EDT Plan of Treatment Health Maintenance Due Date Last Done Comments Breast Cancer Screening 1950 Colorectal Cancer Screening: Colonoscopy 1950 DTaP,Tdap,and Td Vaccines (1 - Tdap) 1971 RSV Immunization Adult Patients (1 - Risk 60-74 years 1-dose series) 2012 Pneumococcal Vaccine: 50+ Years (2 of 2 - PPSV23, PCV20, or PCV21) 08/17/2020 06/22/2020, 12/13/2017 Falls Risk Assessment 09/12/2022 Medicare Annual Wellness Visit 09/12/2022 Osteoporosis Screening (Bone Density Screening) 09/12/2022 Social Influencers of Health Screening 09/12/2022 Depression Screening 10/11/2024 COVID-19 Vaccine ( season) 2025 07/09/2023, 02/11/2022, 10/08/2021 Influenza Vaccine (#1) 2025 2, 06/04/2020, 06/04/2020, Additional history exists Hypertension/CHF/CAD Annual BMP Blood Test 07/13/2026 07/13/2025, 02/01/2025, 01/02/2025, Additional history exists Cholesterol Screening (Lipid Panel) 02/27/2030 02/27/2025, 12/29/2024 Hepatitis C Screening Completed 06/04/2022 Zoster Vaccines Completed 09/15/2022, 06/28/2022 HIB Vaccines [...] on patient's age to complete this topic MMR Vaccines Aged Out No longer eligi ble based on patient's age to complete this topic Meningococcal ACWY Vaccine Aged Out N o longer eligible based on patient's age to complete this topic Meningococcal B Vaccine Aged Out No l onger eligible based on patient's age to complete this topic RSV Immunization Patients Under 20 months Aged Out No longer eligible based on patient's age to complete this topic Varicella Vaccines Aged Out No longer eligible based on patient's age to complete this topic Procedures * The patient is currently admitted. The information in this section might not be complete until the patient is discharged. Procedure Name Priority Date/Time Associated Diagnosis Comments ECG 12-LEAD STAT 07/13/2025 5:10 PM EDT THYROID STIMULATING HORMONE WITH REFLEX TO FREE T4 AND FREE T3 STAT 07/13/2025 5:01 PM EDT CBC WITH AUTO DIFFERENTIAL STAT 07/13/2025 5:01 PM EDT SALICYLATE LEVEL STAT 07/13/2025 5:01 PM EDT ACETAMINOPHEN LEVEL STAT 07/13/2025 5 :01 PM EDT ETHANOL STAT 07/13/2025 5:01 PM EDT COMPREHENSIVE METABOLIC PANEL STAT 07/13/2025 5:01 PM EDT CBC AND DIFFERENTIAL STAT 07/13/2025 5:01 PM EDT NELSON URINE CULTURE TUBE STAT 07/13/2025 4:54 PM EDT URINALYSIS WITH REFLEX MICROSCOPIC AND CULTURE STAT 07/13/2025 4:54 PM EDT URINALYSIS WITH REFLEX MICROSCOPIC AND CULTURE STAT 07/13/2025 4:54 PM EDT METHADONE SCREEN, URINE STAT 07/13/2025 4:54 PM EDT PHENCYCLIDINE, URINE STAT 07/13/2025 4:54 PM EDT BUPRENORPHINE SCREEN, URINE STAT 07/13/2025 4:54 PM EDT DRUG ABUSE SCREEN 8A PANEL, URINE STAT 07/13/2025 4:54 PM EDT from Last 3 Months Results * Thyroid stimulating hormone with reflex to free t4 and free t3 (TSH Reflex) (07/13/2025 5:01 PM EDT) [facility] TSH 2.69 0.40 - 4.00 mcIU/mL LAB CHEMISTRY METHOD 07/13/2025 6:40 PM EDT [facility] Blood Venous blood specimen / Unknown Venipuncture / Unknown 07/13/2025 5:01 PM EDT 07/13/2025 5:12 PM EDT us Garfield Talamantes MD LAB BLOOD ORDERABLES Final Resul t [facility] [address] [place] [address], [place] [phone] * (ABNORMAL) CBC auto differential (07/13/2025 5:01 PM EDT) [facility] WBC 9.6 4.8 - 10.8 K/mcL LAB HEMETOLOGY METHOD 07/13/2025 5:43 PM EDT [facility] RBC 4.80 3.80 - 4.80 M/mcL LAB HEMETOLOGY METHOD 07/13/2025 5:43 PM EDT [facility] Hemoglobin 13.7 11.5 - 16.0 g/dL LAB HEMETOLOGY METHOD 07/13/2025 5:43 PM EDT [facility] Hematocrit 42.1 35.0 - 47.0 % LAB HEMETOLOGY METHOD 07/13/2025 5:43 PM EDT [facility] MCV 88.3 79.0 - 98.0 FL LAB HEMETOLOGY METHOD 07/13/2025 5:43 PM EDT [facility] MCH 28.7 27.0 - 32.0 pcg LAB HEMETOLOGY METHOD 07/13/2025 5:43 PM EDT [facility] MCHC 32.5 32.0 - 37.0 g/dL LAB HEMETOLOGY METHOD 07/13/2025 5:43 PM EDT [facility] RDW 12.7 11.0 - 15.0 % LAB [facility]OLOGY [facility]13[facility]25 [facility] Plate[facility] 374 130 - 400 K/mcL LAB HEMETOLOGY METHOD 07/13/2025 5:43 PM EDT [facility] MPV 9.0 7.0 - 11.0 FL LAB HEMETOLOGY METHOD 07/13[facility]25 [facility] NRBC 0.0 <1.0 % LAB [facility]EMETOLOGY METHOD 07/13/2025 5:[facility] NRBC Absolute 0.00 <0.10 K/mcL LAB HEMETOLOGY METHOD 07/13/2025 5:43 PM EDT [facility] Neutrophils Relative 65.0 % LAB HEMETOLOGY METHOD 07/13/2025 5:43 PM EDT [facility] Lymphocytes Relative 22.4 % LAB HEMETOLOGY METHOD 07/13/2025 5:43 PM EDT [facility] Monocytes Relative 11.3 % LAB HEMETOLOGY METHOD 07/13/2025 5:43 PM EDT [facility] Eosinophils Relative 0.4 % LAB HEMETOLOGY METHOD 07/13/2025 5:43 PM EDT [facility] Basophils Relative 0.7 % LAB HEMETOLOGY METHOD 07/13/2025 5:43 PM EDT [facility] Immature Granulocytes Relative 0.2 % LAB HEMETOLOGY METHOD 07/13/2025 5:43 PM EDT [facility] Neutrophils Absolute 6.20 1.50 - 7.00 K/mcL LAB HEMETOLOGY METHOD 07/13/2025 5:43 PM EDT [facility] Lymphocytes Absolute 2.14 1.00 - 5.00 K/mcL LAB HEMETOLOGY METHOD 07/13/2025 5:43 PM EDT [facility] Monocytes Absolute 1.08(H) 0.20 - 1.00 K/mcL LAB HEMETOLOGY METHOD 07/13/2025 5:43 PM EDT [facility] Eosinophils Absolute 0.04 0.00 - 0.50 K/mcL LAB HEMETOLOGY METHOD 07/13/2025 5:43 PM EDT [facility] Basophils Absolute 0.07 0.00 - 0.20 K/mcL LAB HEMETOLOGY METHOD 07/13/2025 5:43 PM EDT [facility] Immature Granulocytes Absolute 0.02 0.00 - 0.03 K/mcL LAB HEMETOLOGY METHOD 07/13/2025 5:43 PM EDT [facility] Blood Venous blood specimen / Unknown Venipuncture / Unknown 07/13/2025 5:01 PM EDT 07/13/2025 5:11 PM EDT us Garfield Talamantes MD LAB BLOOD ORDERABLES Final Resul t [facility] [address] [place] [address], * Ethanol (07/13/2025 5:01 PM EDT) Ethanol Level <3 0 - 10 mg/dL LAB CHEMISTRY METHOD 07/13/2025 5:50 PM EDT [facility] Blood Venous blood specimen / Unknown Venipuncture / Unknown 07/13/2025 5:01 PM EDT 07/13/2025 5:12 PM EDT Garfield Talamantes MD LAB BLOOD ORDERABLES Final Resul t Performing Organization Address City/[facility]/ZIP Co de Phone Number [facility] [address] [place] [address], [place] [phone] * (ABNORMAL) Acetaminophen level (07/13/2025 5:01 PM EDT) Acetaminophen Level <2.0(L) 10.0 - 30.0 mcg/mL LAB CHEMISTRY METHOD 07/13/2025 5:50 PM EDT [facility] Blood Venous blood specimen / Unknown Venipuncture / Unknown 07/13/2025 5:01 PM EDT 07/13/2025 5:12 PM EDT us Garfield Talamantes MD LAB BLOOD ORDERABLES Final Resul t Performing Organization Address [facility] de Phone Number [facility] [address] [place] [address], [place] [phone] * (ABNORMAL) Salicylate level (07/13/2025 5:01 PM EDT) Salicylate Level <1.7(L) 2.0 - 29.0 mg/dL LAB CHEMISTRY METHOD 07/13/2025 5:50 PM EDT [facility] Blood Venous blood specimen / Unknown Venipuncture / Unknown 07/13/2025 5:01 PM EDT 07/13/2025 5:12 PM EDT us Garfield Talamantes MD LAB BLOOD ORDERABLES Final Resul t Performing Organization Address City/[facility] Co de Phone Number [facility] [address] [place] [address], [place] [phone] * (ABNORMAL) Comprehensive metabolic panel (07/13/2025 5:01 PM EDT) Sodium 136 133 - 145 mmol/L LAB CHEMISTRY METHOD 07/13/2025 5:52 PM [facility] Potassium 3.2(L) 3.5 - 5.5 mmol/L LAB CHEMISTRY METHOD 07/13/2025 5:52 PM [facility] Chloride 98 96 - 110 mmol/L LAB CHEMISTRY METHOD 07/13/2025 5:52 PM [facility] CO2 30 21 - 32 mmol/L LAB CHEMISTRY METHOD 07/13/2025 5:52 PM [facility] Anion Gap 8 3 - 11 LAB CHEMISTRY METHOD 07/13/2025 5:52 PM [facility] Glucose 109(H) 70 - 100 mg/dL LAB CHEMISTRY METHOD 07/13/2025 5:52 PM [facility] BUN 36(H) 5 - 25 mg/dL LAB CHEMISTRY METHOD 07/13/2025 5:52 PM [facility] Creatinine 1.41(H) 0.50 - 1.10 mg/dL LAB CHEMISTRY METHOD 07/13/2025 5:52 PM [facility] eGFR 39(L) >=60 mL/min/1. 73m2 LAB CHEMISTRY METHOD 07/13/2025 5:52 PM [facility] Comment:Calculation based on the Chronic Kidney Disease Epidemiology Collaboration (CKD-EPI) equation refit without adjustment for race. BUN/Creatinine Ratio 25.5 LAB CHEMISTRY METHOD 07/13/2025 5:52 PM [facility] Calcium 8.7 8.5 - 10.5 mg/dL LAB CHEMISTRY METHOD 07/13/2025 5:52 PM [facility] AST (SGOT) 7(L) 10 - 42 unit/L LAB CHEMISTRY METHOD 07/13/2025 5:52 PM EDT [facility] ALT (SGPT) 19 10 - 60 unit/L LAB CHEMISTRY METHOD 07/13/2025 5:52 PM EDT [facility] Alkaline Phosphatase 90 42 - 121 unit/L LAB CHEMISTRY METHOD 07/13/2025 5:52 PM EDT [facility] Total Protein 7.3 6.0 - 8.0 g/dL LAB CHEMISTRY METHOD 07/13/2025 5:52 PM EDT [facility] Albumin 3.9 3.2 - 5.0 g/dL LAB CHEMISTRY METHOD 07/13/2025 5:52 PM EDT [facility] Total Bilirubin 0.3 0.0 - 1.4 mg/dL LAB CHEMISTRY METHOD 07/13/2025 5:52 PM EDT [facility] Blood Venous blood specimen / Unknown Venipuncture / Unknown 07/13/2025 5:01 PM EDT 07/13/2025 5:12 PM EDT us Garfield Talamantes MD LAB BLOOD ORDERABLES Final Resul t [facility] [address] [place] [address], [place] [phone] * (ABNORMAL) Urinalysis with reflex microscopic and culture (07/13/2025 4:54 PM EDT) Specific [place] Urine 1.018 1.003 - 1.030 LAB URINALYSIS - AUTOMATED METHOD 07/13/2025 5:57 PM EDT [facility] pH, Urine 5.5 5.0 - 8.0 pH LAB URINALYSIS - AUTOMATED METHOD 07/13/2025 5:57 PM [facility] Leukocytes, Urine Small(A) Negative LAB URINALYSIS - AUTOMATED METHOD 07/13/2025 5:57 PM T [facility] Nitrite, Urine Negative Negative LAB URINALYSIS - AUTOMATED METHOD 07/13/2025 5:57 PM [facility] Protein, Urine 100(A) <=Trace mg/dL LAB URINALYSIS - AUTOMATED METHOD 07/13/2025 5:57 PM [facility] Glucose, Urine Negative Negative mg/dL LAB URINALYSIS - AUTOMATED METHOD 07/13/2025 5:57 PM [facility] Ketones, Urine Negative Negative mg/dL LAB URINALYSIS - AUTOMATED METHOD 07/13/2025 5:57 PM [facility] Urobilinogen , Urine 1.0 0.2 - 1.0 mg/dL LAB URINALYSIS - AUTOMATED METHOD 07/13/2025 5:57 PM [facility] Bilirubin, Urine Negative Negative LAB URINALYSIS - AUTOMATED METHOD 07/13/2025 5:57 PM [facility] Blood, Urine Moderate(A) Negative LAB URINALYSIS - AUTOMATED METHOD 07/13/2025 5:57 PM [facility] RBC, Urine 6.3(H) 0 - 4 /HPF LAB URINALYSIS - AUTOMATED METHOD 07/13/2025 5:57 PM [facility] WBC, Urine 129.4(H) 0 - 4 /HPF LAB URINALYSIS - AUTOMATED METHOD 07/13/2025 5:57 PM [facility] Squamous Epithelial, Urine 81(H) 0 - 60 /LPF LAB URINALYSIS - AUTOMATED METHOD 07/13/2025 5:57 PM [facility] Bacteria, Urine Many(A) Negative /HPF LAB URINALYSIS - AUTOMATED METHOD 07/13/2025 5:57 PM [facility] Hyaline Casts, Urine 15.0(H) 0 - 3 /LPF LAB URINALYSIS - AUTOMATED METHOD 07/13/2025 5:57 PM [facility] Other Casts, Urine 2-5 Fine Granular casts. /LPF LAB URINALYSIS - AUTOMATED METHOD 07/13/2025 5:57 PM EDT [facility] Urine Urine specimen obtained by clean catch procedure / Unknown Non-blood Collection / Unknown 07/13/2025 4:54 PM EDT 07/13/2025 5:11 PM EDT us Garfield Talamantes MD LAB URINE ORDERABLES Final Resul t Performing Organization Address City/[facility]/ZIP Co de Phone Number [facility] [address] [place] [address], [place] [phone] * Nelson urine culture tube (07/13/2025 4:54 PM EDT) Extra Tube Hold for add-ons. 07/13/2025 7:01 PM EDT [facility] Comment:Auto resulted. Urine Urine specimen obtained by clean catch procedure / Unknown Non-blood Collection / Unknown 07/13/2025 4:54 PM EDT 07/13/2025 5:11 PM EDT us Garfield Talamantes MD LAB URINE ORDERABLES Final Resul t Performing Organization Address [facility]/ZIP Co de Phone Number [facility] [address] [place] [address], [place] [phone] * (ABNORMAL) Drug abuse screen 8a panel, urine (07/13/2025 4:54 PM EDT) Amphetamine Screen, Ur Negative Negative LAB CHEMISTRY METHOD 5:56 PM EDT [facility] Comment:Certain OTC medicati ons containing ephedrine, phenylephrine, pseudoephedrine and phenylpropanolamine can cause false positive results. Barbiturate Screen, Ur Negative Negative LAB CHEMISTRY METHOD 5:56 PM EDT [facility] Benzodiazepine Screen, Ur Positive(A ) Negative LAB CHEMISTRY METHOD 10/03/202 5 5:56 PM EDT [facility] Cocaine Screen, Ur Negative Negative LAB CHEMISTRY METHOD 5:56 PM EDT [facility] Opiate Screen, Ur Positive(A ) Negative LAB CHEMISTRY METHOD 5:56 PM EDT [facility] Cannabinoid (THC) Screen, Ur Negative Negative LAB CHEMISTRY METHOD 5:56 PM EDT [facility] Comment:Specimens from patie nts taking pantoprazole sodium (Protonix) have been shown to produce false positive results. Oxycodone Screen, Ur Negative Negative LAB CHEMISTRY METHOD 5:56 PM EDT [facility] Fentanyl, Ur Negative Negative LAB CHEMISTRY METHOD 5:56 PM EDT [facility] Urine Urine specimen obtained by clean catch procedure / Unknown Non-blood Collection / Unknown 07/13/2025 4:54 PM EDT 07/13/2025 5:11 PM EDT Narrative [facility] - 07/13/2025 5:56 PM EDT [...] MD LAB URINE ORDERABLES Final Resul t [facility] [address] [place] [address], * Buprenorphine screen, urine (07/13/2025 4:54 PM EDT) Buprenorphine Screen Urine Negative Negative LAB CHEMISTRY METHOD 07/13/2025 5:46 PM EDT [facility] Urine Urine specimen obtained by clean catch procedure / Unknown Non-blood Collection / Unknown 07/13/2025 4:54 PM EDT 07/13/2025 5:11 PM EDT Narrative [facility] - 07/13/2025 5:46 PM EDT Assay cutoff 5 ng/mL Semi-quantitative assay for screening purposes only. Unconfirmed screening result should not be used for non-medical purposes. *ALTERNATE METHOD CONFIRMATION DONE UPON REQUEST ONLY* Garfield Talamantes MD LAB URINE ORDERABLES Final Resul t Performing Organization Address [facility] de Phone Number [facility] [address] [place] [address], [place] [phone] * Methadone, urine (07/13/2025 4:54 PM EDT) Methadone Screen, Urine Negative Negative LAB CHEMISTRY METHOD 07/13/2025 5:46 PM EDT [facility] Comment: Assay cutoff 300 ng/mL Semi-quantitative assay for screening purposes only. Unconfirmed screening result should not be used for non-medical purposes. *ALTERNATE METHOD CONFIRMATION DONE UPON REQUEST ONLY* Urine Urine specimen obtained by clean catch procedure / Unknown Non-blood Collection / Unknown 07/13/2025 4:54 PM EDT 07/13/2025 5:11 PM EDT Garfield Talamantes MD LAB URINE ORDERABLES Final Resul t Performing Organization Address [facility] de Phone Number [facility] [address] [place] [address], [place] [phone] * Phencyclidine, urine (07/13/2025 4:54 PM EDT) PCP Scrn, Ur Negative Negative LAB CHEMISTRY METHOD 07/13/2025 5:46 PM EDT [facility] Comment: Assay cutoff 25 ng/mL Semi-quantitative assay for screening purposes only. Unconfirmed screening result should not be used for non-medical purposes. *ALTERNATE METHOD CONFIRMATION DONE UPON REQUEST ONLY* Urine Urine specimen obtained by clean catch procedure / Unknown Non-blood Collection / Unknown 07/13/2025 4:54 PM EDT 07/13/2025 5:11 PM EDT Garfield Talamantes MD LAB URINE ORDERABLES Final Resul t [facility] [address] [place] [address], [place] [phone] from Last 3 Months Insurance MEDICARE [facility] Care Teams Line Tender Flakeboard Relationship Specialty Start Date End Date Andrew Kebede DO [address] [facility] [place] [id number] PCP - General Internal Medicine 02/01/25
--- OUTSIDE RECORDS SUMMARY | 2025-07-13 23:04 | XMS_ITS | Encounter Summary ---
Author Organization [facility] Address [address] [place] [address] Care Team Providers Care Books Salesperson Name Role Phone Andrew Kebede MD Primary Care Provider [phone] Andrew Kebede MD Unavailable PortiaCarina Colunga RN Unavailable Unavailable Reason for Visit * Reason Onset Date Comments Med Refill 08/24/2024 Encounter Details Date Type Department Care Team (Late st Contact Info) Description 08/24/2024 Refill [facility] [address] [place] [address] Andrew Kebede MD [address] [place] [address] Post herpetic neuralgia Social History [...] 07/10/2025 11:59 PM EDT Anesthesia Event [facility] [address] [place] [address] Claudia Bell MD [address] [facility] [address] [place] [address] 07/19/2025 1:30 PM EDT Lab [facility] [address] [place] [phone] 07/19/2025 2:00 PM EDT Office Visit [facility] [address] [place] [phone] Kartik Fields MD [address] [place] [address] 07/19/2025 2:00 PM EDT Office Visit [facility] Division of Palliative Care [address] [place] [address] Sigrid Gaston MD [address] [place] [address] 07/19/2025 3:00 PM EDT Office Visit [facility] [address] [facility] [address] [place] [address] Andrew Kebede MD [address] [place] [address] 07/25/2025 11:00 AM EDT Appointment [facility] [address] [place] [phone] 08/13/2025 3:15 PM EST Appointment [facility] Radiation Oncology [address] [facility] [place] [phone] Luis Angel Reid MD [address] [facility] [address] [place] [address] documented as of this encounter Visit Diagnoses Diagnosis Post herpetic neuralgia Herpes zoster with other nervous system complications documented in this encounter Additional Health Concerns Infection Onset Date Last Indicated Resolved Time COVID-19 Rule-Out 01/14/2025 01/14/2025 01/14/2025 10:10 PM EDT documented as of this encounter Care Teams Books Salesperson Relationship Specialty Start Date End Date Andrew Kebede MD [address] [place] [address] PCP - General 11/14/21 Andrew Kebede MD [address] [place] [address] 11/14/21 Carina Pearce, overlock sleeve setterJava Portal Developer 03/19/25 04/25/25 documented as of this encounter
--- OUTSIDE RECORDS SUMMARY | 2025-07-13 23:04 | XMS_ITS | Encounter Summary ---
Author Organization [facility] Address [address] [place] [address] Care Team Providers Care Sheet Rock Applicator Name Role Phone Andrew Kebede MD Primary Care Provider [phone] Andrew Kebede MD Unavailable PortiaCarina Colunga RN Unavailable Unavailable Reason for Visit * Reason Onset Date Comments Med Refill 04/24/2024 Encounter Details Date Type Department Care Team (Late st Contact Info) Description 04/24/2024 Refill [facility] [address] [facility] [address] [place] [address] Andrew Kebede MD [address] [place] [address] Anxiety Social History Tobacco Use [...] Description 07/10/2025 11:59 PM EDT Anesthesia Event [facility] Imaging [address] [place] [phone] Claudia Bell MD [address] [place] [address], [address] [place] [address] 07/19/2025 1:30 PM EDT Lab [facility] Hematology/Oncology Clinic [address] [place] [phone] 07/19/2025 2:00 PM EDT Office Visit [facility] Breast Health Center [address] [place] [phone] Kartik Fields MD [address] [place] [address] 07/19/2025 2:00 PM EDT Office Visit [facility] Division of Palliative Care [address] [facility] [address] [place] [address] Sigrid Gaston MD [address] [facility] [address] [place] [address] 07/19/2025 3:00 PM EDT Office Visit [facility] [address] [facility] [place] [phone] Andrew Kebede MD [address] [place] [address] 07/25/2025 11:00 AM EDT Appointment [facility] Imaging [address] [place] [phone] 08/13/2025 3:15 PM EST Appointment [facility] Radiation Oncology [address] [facility] [place] [phone] Luis Angel Reid MD [address] [facility] [place] [phone] documented as of this encounter Visit Diagnoses Diagnosis Anxiety Anxiety state, unspecified documented in this encounter Additional Health Concerns Infection Onset Date Last Indicated Resolved Time COVID-19 Rule-Out 01/14/2025 01/14/2025 01/14/2025 10:10 PM EDT documented as of this encounter Care Teams Sheet Rock Applicator Relationship Specialty Start Date End Date Andrew Kebede MD [address] [place] [address] PCP - General 11/14/21 Andrew Kebede MD [address] [place] [address] 11/14/21 Carina Pearce, supervisor electronic testingAutomotive Painter Helper 03/19/25 04/25/25 documented as of this encounter
[2025-07-13 23:14] VITALS: BMI 22.0
[2025-07-13 23:38] VITALS: BMI 22.3
[2025-07-13 23:39] VITALS: BP 121/59; PULSE 60; RESP 16; TEMP 36.2; O2SAT 98
[2025-07-14] MEDS: Morphine Sulfate Immed Release 15 MG TABLET PO ×4 (00:22→20:19)
--- NOTE | 2025-07-14 01:31 | PC.NURSE ---
Admission Note Jesusita Villanueva, a 75-year-old woman, presented to [facility] ED via ambulance from her home with chief complaints of suicidal ideation with no plan, delusional thought content that [employer] people are controlling her life, and she has been double dosing her meds to cope with mental stress and pain secondary to her Stage-IV Metastatic breast cancer. The patient has a medical and psychiatric history of? Metastatic stage-IV breast cancer,? hyperlipidemia, hypothyroidism, constipation, history of Myocardial infarction ([place]) last December, ?and Anxiety.? Jesusita arrived in our unit in a wheelchair at 2330 on 07/13/25, on CV with an admitting diagnosis of Unspecified Trauma and Stress related disorder. Jesusita is full-code. She is alert and oriented, times four. She is anxious and angry due to her life situation. Thought content logical/clear, thought process clear. Mood depressed and tearful.. Affect congruent to mood, Denied SI/HI/AVH. Med reconciliation was completed/ approved by the provider/compliant with her meds. She takes her meds whole with water. Pain 9/10, PRN Morphine 15 mg and Xanax 2.5 mg administered with + effect. Skin assessed found scars from bilateral mastectomy and rashes on sacrum, unsteady gait/ ambulates with walker. Independent with ADL care. Continent with bowel and bladder. Last BM was 07/14/25. Labs unremarkable except potassium 3.2 received potassium 40 mEq in ED.? Utox positive for Benzos and opiates. UA negative. EKG abnormal sinus jocelyn/left anterior fascicular block.? She signed her treatment plan, safety tool, and release paper. Kavitha searched. Jesusita is on for 5-minutes for a safety check.
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
[2025-07-14 07:50] LABS: Hemoglobin A1C 151.7491 umol/L; Total Hemoglobin (HGBA1C) 3403.6230 umol/L
[2025-07-14 08:00] VITALS: BP 119/56; PULSE 64; RESP 16; TEMP 36.2; O2SAT 96
[2025-07-14 08:00] LABS: Alanine Aminotransferase 9 U/L (0-31); Albumin Level 3.8 g/dL (3.5-5.0); Alkaline Phosphatase 75 U/L (39-117); Anion Gap 12 (12-20); Aspartate Amino Transferase 31 U/L (5-31); Blood Urea Nitrogen 34 mg/dL (9-16); Calcium 8.4 mg/dL (8.4-10.2); Carbon Dioxide 29 mmol/L (22-29); Chloride 103 mmol/L (96-108); Cholesterol 104 mg/dL (<200); Creatinine Clr Calc Pharmacy 31.1; Estimated Glomerular Filt Rate 37; HDL Cholesterol 45 mg/dL (>40); Potassium 3.5 mmol/L (3.3-5.1); Sodium 140 mmol/L (135-145); Total Protein 6.4 g/dL (6.5-8.0); Triglycerides 83 mg/dL (<150)
[2025-07-14 08:14] LABS: Free T4 (Free Thyroxine) 1.05 ng/dL (0.71-1.85); Thyroid Stimulating Hormone 3.01 uIU/mL (0.32-4.0)
[2025-07-14 08:29] LABS: Folate 12.0 ng/mL (> or = 4.0); Vitamin B12 353 pg/mL (200-900)
--- NOTE | 2025-07-14 08:40 | PM.EVENT ---
Event Note Date of Service: 07/14/25 Event Note: Attempted to see patient for new admission H&P. Patient was seen in her room, she was not asleep but was trying to sleep. She declined her evaluation stating that she got to the unit late and has not slept for several days. She says she has no urgent medical issues to discuss at this time. Available labs reviewed, SCr is higher then previous, but there is no recent value for comparison. Hba1c 6.2 - prediabetic ranage. can consider DM diet if pt agreeable, but otherwise no specific intervention required at this time. outpatient follow up with PCP for ongoing monitoring. listed hypothyroidism on psych admission note - no thyroid replacement on med list, would recommend confirming with patient. TSH wnl h/o CAD on DAPT and statin ?CHF on lasix. no echo in system. monitor fluid status. if any acute medical issues arise, please don't hesitate to reach out. Time Spent With Patient Time: Total time managing care of this patient today ____ minutes.
[2025-07-14 20:00] VITALS: BP 119/57; PULSE 68; RESP 16; TEMP 36.2; O2SAT 98
[2025-07-15] MEDS: Morphine Sulfate Immed Release 15 MG TABLET PO ×4 (02:51→20:56)
[2025-07-15 08:00] VITALS: BP 117/55; PULSE 68; RESP 16; TEMP 36.2; O2SAT 95
--- NOTE | 2025-07-15 11:10 | P.PNPSI_ITS ---
Subjective Subjective Date of Service: 07/15/25 Reason For Visit: Unspecified trauma and stressor Related Disorder Subjective Notes: Solorio Warning and 3 Day Interim History: Met with patient. Discussed with nursing. Irritable. Frustrated. Wants discharge and feels there is no benefit to her being in the hospital. Her main goal is getting her cell phone changed through [employer] and reports her brother can help her with this after discharge. Reports she is not suicidal and has no thoughts of hurting anybody and very eager for discharge. Completed three-day notice. Sleep okay. Still reports not wanting any changes to current med regimen I.e. does not want any psychotropic medications added or changed. Sensitivities for urine culture from [facility] seen and clarified that penicillin allergy and chart was actually an adverse reaction with GI side effects rather than an allergy. With same in mind, Ceftin started. Review of Systems Review of Systems Nothing acute. Sensitivities for urine culture from [facility] seen and clarified that penicillin allergy and chart was actually an adverse reaction with GI side effects rather than an allergy. With same in mind, Ceftin started. Mental Status Exam Mental Status Exam Narrative: hospital clothing. Engaged. Irritable. Frustrated. Anxious and depressed. Future oriented. Denies active SI. Denies hallucinations. Describes paranoia around things that have been happening outside of the hospital. It is unclear if these are delusional based or reality based. Hopeful she can get help and support connecting with digital crime unit from the police department. Insight and judgment fair Diagnostics Vital Signs (24Hr): Vital Signs - 24 hr 07/14/25 20:00 Temperature 97.2 F Pulse Rate 68 Respiratory Rate 16 Blood Pressure 119/57 L Pulse Oximetry 98 Oxygen Delivery Method Room Air BMI result Body Mass Index 22.3 Labs 07/14/25 07:29 Labs: Laboratory Results - last 48 hr 07/14/25 07:29 Sodium 140 Potassium 3.5 Chloride 103 Carbon Dioxide 29 Anion Gap 12 BUN 34 H Creatinine 1.39 Estim Creat Clear Calc 31.1 Estimated GFR 37 Random Glucose 101 Estimat Average Glucose 131 Hemoglobin A1c % 6.2 H Calcium 8.4 Total Bilirubin 0.2 AST 31 ALT 9 Alkaline Phosphatase 75 Total Protein 6.4 L Albumin 3.8 Triglycerides 83 Cholesterol 104 LDL Cholesterol, Calc 43 HDL Cholesterol 45 Vitamin B12 353 Folate 12.0 TSH 3.01 Free T4 1.05 Medications Medications Current Medications Acetaminophen (Acetaminophen 325 Mg Tablet) 650 mg PO Q6H PRN PRN Reason: Headache/Pain, Scale 1-10 Al Hydroxide/Mg Hydroxide (Magnesium Hydrox/Alum Hydrox 30 Ml Oral.Susp) 30 ml PO Q6H PRN PRN Reason: Heartburn/Nausea Alprazolam (Alprazolam 0.5 Mg Tablet) 2.5 mg PO BEDTIME [facility] Last Admin: 07/14/25 20:15 Dose: 2.5 mg Alprazolam (Alprazolam 0.25 Mg Tablet) 0.25 mg PO BID PRN PRN Reason: Anxiety, mild Last Admin: 07/15/25 10:26 Dose: 0.25 mg Aspirin (Aspirin 81 Mg Tab.Chew) 81 mg PO DAILY [facility] Last Admin: 07/15/25 08:02 Dose: 81 mg Atorvastatin Calcium (Atorvastatin Calcium 80 Mg Tablet) 80 mg PO BEDTIME [facility] Last Admin: 07/14/25 20:16 Dose: 80 mg Clopidogrel Bisulfate (Clopidogrel Bisulfate 75 Mg Tablet) 75 mg PO DAILY [facility] Last Admin: 07/15/25 08:02 Dose: 75 mg Furosemide (Furosemide 20 Mg Tablet) 20 mg PO DAILY [facility]; Protocol Last Admin: 07/15/25 08:02 Dose: 20 mg Hydroxyzine HCl (Hydroxyzine Hcl 25 Mg Tablet) 25 mg PO Q6H PRN PRN Reason: mild anxiety Lactulose (Lactulose 20 Gm/30 Ml Solution) 10 gm PO DAILY PRN PRN Reason: Constipation Magnesium Hydroxide (Milk Of Magnesia 30 Ml Oral.Susp) 30 ml PO DAILY PRN PRN Reason: Constipation Morphine Sulfate (Morphine Sulfate Immed Release 15 Mg Tablet) 15 mg PO Q4H PRN PRN Reason: Severe Pain (Scale Score 7-10) Last Admin: 07/15/25 08:02 Dose: 15 mg Nicotine (Nicotine 21 Mg Patch.Td24) 21 mg TRANSDERMA DAILY PRN PRN Reason: nicotine craving Nicotine Polacrilex (Nicotine Polacrilex 2 Mg Gum) 2 mg BUCCAL Q2H PRN PRN Reason: Nicotine Cravings Olanzapine (Olanzapine 2.5 Mg Tablet) 2.5 mg PO BID PRN PRN Reason: agitation Ondansetron HCl (Ondansetron Odt 4 Mg Tab.Rapdis) 2 mg TRANSLINGU Q6H PRN PRN Reason: Nausea and Vomiting Trazodone HCl (Trazodone Hcl 50 Mg Tablet) 50 mg PO BEDTIME MRX1 PRN PRN Reason: Insomnia Valacyclovir HCl (Valacyclovir Hcl 1,000 Mg Tablet) 1,000 mg PO TID JULIO Stop: 07/19/25 15:44 Last Admin: 07/15/25 08:02 Dose: 1,000 mg Allergies Allergies Allergy/AdvReac Type Severity Reaction Status Date / Time nitrofurantoin (From Allergy Unknown Verified 08/27/24 23:55 Macrodantin) prednisone Allergy Unknown Verified 08/27/24 23:55 zolpidem Allergy Nausea and Verified 08/27/24 23:55 Vomiting Penicillins AdvReac Severe Rash Verified 07/13/25 23:09 Sulfa (Sulfonamide AdvReac Severe Rash Verified 07/13/25 23:09 Antibiotics) oxycodone AdvReac Unknown Rash Verified 07/13/25 23:10 haloperidol (From Haldol) AdvReac Hallucinati Verified 08/28/24 01:07 ons levetiracetam (From Keppra) AdvReac Hallucinati Verified 08/28/24 01:07 ons Assessment & Plan Assessment & Plan (1) PTSD (post-traumatic stress disorder): Status: Acute Code(s): F43.10 - Post-traumatic stress disorder, unspecified Plan Presents with depression and suicidal thoughts in the context of significant stress and feeling overwhelmed and poor sleep. Describes paranoia around things that have been happening outside of the hospital. It is unclear if these are delusional based or reality based. Hopeful she can get help and support connecting with digital crime unit from the police department . Currently declining any new or changes to psychotropic medications based on past experiences. Admitted on a voluntary basis. 07/15/2025: Three-day notice submitted. Remains very eager for discharge and primary team can continue evaluating ongoing benefit of remaining in hospital, versus discharge planning back to the community. Denies SI or HI. Reason for continued inpatient stay Substantial Risk for: other (3 day notice evaluation) Time Spent With Patient Time: Total time managing care of this patient today ____ minutes.
[2025-07-15 20:00] VITALS: BP 134/60; PULSE 66; RESP 16; TEMP 36.3; O2SAT 97
[2025-07-16] MEDS: Morphine Sulfate Immed Release 15 MG TABLET PO ×4 (02:16→20:26)
[2025-07-16 08:42] VITALS: BP 129/86; PULSE 75; RESP 18; TEMP 36.5; O2SAT 96
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
[2025-07-16 20:00] VITALS: BP 110/60; PULSE 72; RESP 16; TEMP 36.4; O2SAT 98
[2025-07-17] MEDS: Morphine Sulfate Immed Release 15 MG TABLET PO ×2 (01:48→09:13)
[2025-07-17 08:55] VITALS: BP 123/58; PULSE 68; RESP 16; TEMP 36.2; O2SAT 97
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
--- NOTE | 2025-07-20 12:58 | PC.NURSE ---
on 07/14/25 Xanax 0.25mg was administered at 1630 and on 07/15/25 MS 15mg was given at 1700.
== END 2025-07-17 10:56 | disposition home or self-care (01) | DRG 885 ==
PROVIDERS: Nurse Practitioner Psychiatric/Mental Health; Admitting Provider Psychiatry & Neurology Psychiatry; Visit Provider Psychiatry & Neurology Psychiatry
DX: F29 Unspecified psychosis not due to a substance or known physiological condition (principal); R45.851 Suicidal ideations; F43.10 Post-traumatic stress disorder, unspecified; B02.9 Zoster without complications; Z87.891 Personal history of nicotine dependence; Z79.82 Long term (current) use of aspirin; Z79.899 Other long term (current) drug therapy
CPT/HCPCS: 36415; 80053; 80061; 82607; 82746; 83036; 84439; 84443

== ENCOUNTER → 2025-07-13 22:56 | Outpatient (BNV) | payer OTHER, MEDICARE, SELFPAY | PROVIDERS: Admitting Provider Psychiatry & Neurology Psychiatry; Visit Provider Physician Assistant Medical | DX: B02.9 Zoster without complications (principal) | CPT/HCPCS: 99221; 99499 ==

== ENCOUNTER → 2025-07-13 22:56 | Outpatient (BNV) | payer OTHER, MEDICARE, SELFPAY | PROVIDERS: Admitting Provider Psychiatry & Neurology Psychiatry; Visit Provider Psychiatry & Neurology Psychiatry | DX: F29 Unspecified psychosis not due to a substance or known physiological condition (principal); F43.11 Post-traumatic stress disorder, acute; B02.9 Zoster without complications | CPT/HCPCS: 90792; 99232; 99239 ==